=== PATIENT | female | born 1965 | race Caucasian/White ===

== ENCOUNTER 2017-07-01 19:06 | Emergency (ER) | payer OTHER, BC ==
[2017-07-01 19:10] VITALS: BP 129/84; PULSE 93; TEMP 97; BMI 34.9
--- NOTE | 2017-07-01 21:24 | PDOC ---
History of Present Illness - General Chief Complaint: Injury Stated Complaint: FALL/INJURY Time Seen by Provider: 07/01/17 20:04 History Source: Patient Exam Limitations: No Limitations - History of Present Illness Initial Comments: 07/01/17 21:19 CHIEF COMPLAINT: Mechanical fall on Saturday now complaining of neck pain back pain and disorientation HISTORY OF PRESENT ILLNESS: Patient is an otherwise healthy 51-year-old female reports while at work on 06/28/2017 patient was walking down an icy ramp at work slipped and fell twice falling hard on her back she started to bleed thought she had her. However she popped hemorrhoid from falling hard now with lower back pain, neck pain, headache 10 out of 10 and today her boss sent her home for being disoriented. Patient reports that she felt confused of her surroundings. She has been ambulatory to the emergency department today complaining of pain unrelieved with Motrin, Tylenol or Advil. Patient denies hitting her head, denies any LOC, no nausea or vomiting. PMH: [None] MEDS:[ None] ALLERGIES: [None] REVIEW OF SYSTEMS: GENERAL/CONSTITUTIONAL: Awake alert and oriented HEAD, EYES, EARS, NOSE AND THROAT: No change in vision. No facial edema, no bruising. NO active bleeding. Nares intact. RESPIRATORY: No cough, wheezing, or hemoptysis. CARDIAC: Denies chest pain, no shortness of breathe. MUSCULOSKELETAL: Generalized lower back pain with no direct spinal point tenderness, there is tenderness to lower cervical spine, Good ROM to all four extremeties. NO CVA tenderness. [No] lateral neck pain. GI/: Denies abdominal pain, no nausea or vomiting, no bloody stool, no Hematuria. SKIN : No erythema or bruising noted. No abrasion or lacerations. NEUROLOGIC: No loss of consciousness, no numbness or tingling. PHYSICAL EXAM: GENERAL: Awake and alert and oriented x3. EYES: The pupils are equal, round, and reactive to light, with clear, conjunctiva. Good extraocular movement. No nystagmus NOSE: No nasal trauma . Midface stable MOUTH: Teeth intact. EARS: The ear canals and tympanic membranes are normal without trauma. No drainage. NECK: Lower cervical C-spine tenderness, no pain with chin to chest. CHEST: The lungs are clear without crackles, or wheezes. No subcutaneous emphysema. No crepitus. HEART: Heart is regular rhythm, with normal S1 and S2, no murmurs. ABDOMEN: The abdomen is soft and nontender with normal bowel sounds. There is no guarding or rebound. MUSCULOSKELETAL: No spinal point tenderness. No bruising or erythema. Pelvis stable. RECTAL: Patient refused. EXTREMITIES: Extremities are normal. No visible traumatic injury. NEUROLOGICAL:Mental status: The patient is oriented x3. Generalized headache, Romberg [-] Cranial nerves: Cranial nerves II through XII are intact Motor: The upper extremities are 5 over 5 in all muscle groups. The lower extremities are 5 over 5 in all muscle groups. Sensation: Sensation is intact to light touch throughout. Cerebellar: Slutto-tpseqz-[id number] is normal in both upper extremities. Heel-knee- herndon is normal in both lower extremities. Reflexes: 2+ and symmetric in the upper and lower extremities. Gait: Normal. Heel and toe walking are normal. Tandem gait is normal. SKIN: Without edema, erythema or bruising. No abrasions or lacerations. Past History - Past Medical History Allergies/Adverse Reactions: Allergies Allergy/AdvReac Type Severity Reaction Status Date / Time No Known Allergies Allergy Verified 07/01/17 19:10 Home Medications: Ambulatory Orders NK [No Known Home Medication] 07/01/17 Asthma: Yes - Suicide/Smoking/Psychosocial Hx Smoking Status: No Smoking History: Never smoked Have you smoked in the past 12 months: No Number of Cigarettes Smoked Daily: 0 Hx Alcohol Use: No Drug/Substance Use Hx: No *Physical Exam - Vital Signs Last Vital Signs Temp Pulse Resp BP Pulse Ox 97 F L 93 H 18 129/84 99 07/01/17 19:08 07/01/17 19:08 07/01/17 19:08 07/01/17 19:08 07/01/17 19:08 Medical Decision Making - Medical Decision Making 07/01/17 21:22 A/P: Accidental fall on Saturday patient reports that she has been having neck pain generalized back pain and headache 10 out of 10 unrelieved with medication after incident. Today she reports that her boss sent her home because she was disoriented. As patient reports that she has been disoriented with headache unrelieved with medication patient sent to main emergency department for higher level of care. Report to Simona TRAMMELL and Dr. Rosa. *DC/Admit/Observation/Transfer Diagnosis at time of Disposition: Eloped - Discharge Dispostion Disposition: ELOPED
--- NOTE | 2017-07-01 22:53 | PDOC ---
*Physical Exam - Vital Signs Last Vital Signs Temp Pulse Resp BP Pulse Ox 97 F L 93 H 18 129/84 99 07/01/17 19:08 07/01/17 19:08 07/01/17 19:08 07/01/17 19:08 07/01/17 19:08 *DC/Admit/Observation/Transfer Diagnosis at time of Disposition: Eloped - Discharge Dispostion Disposition: ELOPED
== END 2017-07-01 22:52 | disposition left against medical advice (07) ==
LOC: JER 19:06
DX: R51 Headache (principal); R41.0 Disorientation, unspecified; W00.2XXA Other fall from one level to another due to ice and snow, initial encounter; Y93.89 Activity, other specified; Y92.512 Supermarket, store or market as the place of occurrence of the external cause; Y99.0 Civilian activity done for income or pay
CPT/HCPCS: 99282-25

== ENCOUNTER 2018-04-13 04:01 | Emergency (ER) | payer BC ==
[2018-04-13 04:32] VITALS: BP 118/77; PULSE 77; TEMP 99.1; BMI 35.7
--- NOTE | 2018-04-13 04:51 | PDOC ---
Attending Attestation - HPI HPI: 04/13/18 05:18 The patient is a 52 year old female, with no significant PMH, who presents to the emergency department with right sided posterior neck pain beginning at 3pm yesterday afternoon. The patient denies any injury or trauma. The patient states overnight she experienced progressively worsening posterior neck pain radiating to the right side of her head with associated vertigo which prompted the ED visit. The patient states she has never had these symptoms before. The patient states she takes cyclopenzaprine for intermittent neck pain with the last dose early Saturday morning. The patient denies numbness, tingling, loss of sensation, weakness, chest pain, palpitations, or shortness of breath. Denies fever, chills, nausea, vomit, diarrhea and constipation. Denies dysuria, frequency, urgency and hematuria. Allergies: NKA - Physicial Exam PE: 04/13/18 05:18 GENERAL: Awake, alert, and fully oriented, in no acute distress HEAD: No signs of trauma EYES: PERRLA, EOMI, sclera anicteric, conjunctiva clear ENT: Auricles normal inspection, hearing grossly normal, nares patent, oropharynx clear without exudates. Moist mucosa NECK: Normal ROM, supple, no lymphadenopathy, JVD, or masses LUNGS: Breath sounds equal, clear to auscultation bilaterally. No wheezes, and no crackles HEART: Regular rate and rhythm, normal S1 and S2, no murmurs, rubs or gallops ABDOMEN: Soft, nontender, normoactive bowel sounds. No guarding, no rebound. No masses EXTREMITIES: Normal range of motion, no edema. No clubbing or cyanosis. No cords, erythema, or tenderness NEUROLOGICAL: Cranial nerves II through XII grossly intact. Normal speech, normal gait SKIN: Warm, Dry, normal turgor, no rashes or lesions noted. <Jarrod Reynolds - Last Filed: 04/13/18 05:32> - Resident Resident Name: Abiola Steven - ED Attending Attestation I have performed the following: I have examined & evaluated the patient, The case was reviewed & discussed with the resident, I agree w/resident's findings & plan - Medical Decision Making 04/13/18 06:56 Pt will have labs done and CT head. <Sandra Morris - Last Filed: 04/13/18 06:57> Attestations - Attestations 04/13/18 05:19 Documentation prepared by Jarrod Reynolds, acting as medical billing coder for Sandra Morris MD. <Jarrod Reynolds - Last Filed: 04/13/18 05:32>
[2018-04-13] MEDS ORDERED: MECLIZINE HCL 25 MG TABLET (FP) PO ONE (04:55)
[2018-04-13] MEDS ORDERED: ACETAMINOPHEN 1000 MG/100 ML VIAL (NON FORMULARY) IVPB ONE (04:55)
[2018-04-13] MEDS ORDERED: SODIUM CHLORIDE 0.9% 500 ML INFUS.BAG IV ONE (05:02)
[2018-04-13] MEDS ORDERED: MECLIZINE HCL 25 MG TABLET (FP) ONE (05:08)
[2018-04-13] MEDS ORDERED: ACETAMINOPHEN INJECTION 100 ML IVPB ONE (05:08)
--- NOTE | 2018-04-13 05:09 | PDOC ---
History of Present Illness - General Chief Complaint: Head/Neck problem Stated Complaint: NECK PAIN Time Seen by Provider: 04/13/18 04:40 History Source: Patient Exam Limitations: No Limitations - History of Present Illness Initial Comments: 04/13/18 05:01 This is a 52 YOF with h/o prior injuries from multiple falls, who p/w abrupt onset of right posterior superior neck pain (patient points) yesterday at about 3 pm (approximately 13.5 hours prior to presentation in the ED this morning). She notes that the pain has since began radiating to the whole right side of her head, and she has associated vertigo (explains that objects in front of her appear to be rotating but that the room itself does not seem to be spinning or flipping). Her social services designee here in the ED states that her voice has been slower than normal since the onset of symptoms, and the right side of her face appears "softer than normal". She has never had symptoms like this before. She has not taken any new medications lately. She has been on cyclopenzaprine for intermittent neck pain and last took this medication early on Saturday morning ( more than 24 hours prior to presentation to the ED). She denies numbness, tingling, focal weakness, vision changes, difficulty balancing or walking, chest pain, palpitations, SOB, abdominal pain, new back pain, urinary incontinence/retention, or other symptoms. NIH Stroke Scale - Last Known Well Date/Time & Onset Date Last Known Well: 04/12/18 Time Last Known Well: 15:00 - Initial Evaluation Level of consciousness: Alert Ask patient the month and their age: Answers both correctly Ask patient to open & close eyes; make fist and let go: Obeys both correctly Best gaze (horizontal eye movement): Normal Visual field testing: No visual field loss Facial paresis (Show teeth/raise eyebrows/close eyes tight): Minor paralysis ( flattened nasolabial fold, asymmetry on smiling) Motor Function: Left Arm: Normal Motor Function: Right Arm: Normal (extends arm 90 (or 45) degrees for 10 seconds without drift Motor Function: Left Leg: Normal (extends leg 30 degrees for 5 seconds without drift) Motor Function: Right Leg: Normal (extends leg 30 degrees for 5 seconds without drift) Limb Ataxia: No ataxia Sensory(Use pinprick test arms,legs,trunk,face/side to side): Normal Best language (Describe picture, name items, read sentences): No Aphasia Dysarthria (read several words): Mild to moderate slurring of words Extinction and Inattention: No abnormality - Total Score NIH Stroke Scale Score: 2 Past History - Past Medical History Allergies/Adverse Reactions: Allergies Allergy/AdvReac Type Severity Reaction Status Date / Time No Known Allergies Allergy Verified 04/13/18 04:30 Home Medications: Ambulatory Orders NK [No Known Home Medication] 07/01/17 Asthma: Yes - Suicide/Smoking/Psychosocial Hx Smoking Status: No Smoking History: Never smoked Have you smoked in the past 12 months: No Number of Cigarettes Smoked Daily: 0 Information on smoking cessation initiated: No Hx Alcohol Use: No Drug/Substance Use Hx: No Review of Systems - Review of Systems Able to Perform ROS?: Yes Constitutional: No: Chills, Fever, Unexplained wgt Loss HEENTM: No: Nose Congestion, Throat Pain Respiratory: No: Cough, Shortness of Breath Cardiac (ROS): No: Chest Pain, Palpitations ABD/GI: No: Constipated, Diarrhea, Nausea, Vomiting : No: Burning, Dysuria Musculoskeletal: Yes: Neck Pain (right posterior). No: Back Pain Integumentary: No: Bruising, Rash Neurological: Yes: Headache (right), Dizziness (vertigo), Other (slowed speech) . No: Numbness, Tingling, Tremors, Weakness, Unsteady Gait, Ataxia Endocrine: No: Unexplained Weight Gain, Unexplained Weight Loss *Physical Exam - Vital Signs Last Vital Signs Temp Pulse Resp BP Pulse Ox 99.1 F 77 20 118/77 99 04/13/18 04:30 04/13/18 04:30 04/13/18 04:30 04/13/18 04:30 04/13/18 04:30 - Physical Exam General Appearance: Yes: Nourished, Appropriately Dressed, Other (pleasant but a bit bizarre-affect adult female, appears a bit older than stated age, accompanied by significant other at bedside). No: Apparent Distress HEENT: positive: EOMI, Normal Voice, Hearing Grossly Normal. negative: Scleral Icterus (R), Scleral Icterus (L), Nasal Congestion Neck: positive: Trachea midline, Supple. negative: Tender, Rigid Respiratory/Chest: positive: Lungs Clear, Normal Breath Sounds. negative: Respiratory Distress, Crackles, Rhonchi, Stridor, Wheezing Cardiovascular: positive: Regular Rhythm, Regular Rate, S1, S2. negative: Edema , JVD, Murmur Gastrointestinal/Abdominal: positive: Normal Bowel Sounds, Soft. negative: Tender, Organomegaly, Pulsatile Mass, Guarding Musculoskeletal: positive: Normal Inspection. negative: Decreased Range of Motion, Vertebral Tenderness Extremity: positive: Normal Capillary Refill, Normal Inspection, Normal Range of Motion. negative: Tender, Cyanosis Integumentary: positive: Normal Color, Dry, Warm. negative: Erythema, Rash, Bruising Neurologic: positive: health care technician II-XII NML intact, Fully Oriented, Alert, Normal Mood/ Affect, Normal Response, Motor Strength 5/5, Facial Droop (mild right sided droop), Finger to Nose (normal), Other (bilateral horizontal nystagmus greater with extreme rightward than extreme leftward gaze, extinguishes within 3 seconds on leftward gaze and within 10 seconds on rightward gaze). negative: Numbness, Sensory Deficit, Confused, Disoriented Heart Score/ECG Review #1 NSR, rate of 66, normal axis and intervals, TWI in III and aVF, otherwise no ischemic ST-T changes ED Treatment Course - RADIOLOGY Radiology Studies Ordered: Category Date Time Status HEAD CT WITH AND W/O CONTRAST [CT] Stat CT Scan 04/13/18 04:52 Ordered NECK CTA [CT] Stat CT Scan 04/13/18 04:52 Ordered CHEST X-RAY PORTABLE* [RAD] Stat Radiology 04/13/18 04:53 Ordered Medical Decision Making - Medical Decision Making Elderly Pt p/w right posterior neck pain, right headache, vertigo, and slowed speech. Laboratory Tests 04/13/18 04/13/18 04/13/18 04:55 04:55 04:55 WBC 6.8 RBC 4.52 Hgb 11.3 Hct 35.3 MCV 78.1 L MCH 24.9 L D MCHC 31.9 L RDW 16.0 H Plt Count 423 D MPV 7.0 L Absolute Neuts (auto) 3.6 Neutrophils % 52.0 Lymphocytes % 35.8 Monocytes % 9.7 Eosinophils % 1.6 Basophils % 0.9 Nucleated RBC % 0 PT with INR 12.80 INR 1.13 H Sodium 138 Potassium 4.3 Chloride 106 Carbon Dioxide 30 Anion Gap 2 L BUN 17 Creatinine 0.8 Creat Clearance w eGFR > 60 Random Glucose 100 Calcium 9.2 Total Bilirubin 0.2 AST 24 ALT 35 Alkaline Phosphatase 83 Creatine Kinase 232 H Troponin I < 0.02 Total Protein 7.3 Albumin 3.8 Exam: As noted in Physical Exam section. Patient's constellation of symptoms is concerning for vertebral dissection or other vertebrobasilar insufficiency. DDX for vertigo IBNLT: peripheral cause (BPPV, otitis media, vestibular neuritis , herpes zoster oticus AKA Aydlett Cooper syndrome, Meniere disease, labyrinthine concussion, perilymphatic fistula, semicircular canal dehiscence syndrome, Paulette syndrome, recurrent vestibulopathy, acoustic neuroma, aminoglycoside toxicity), central cause (brainstem ischemia or cerebellar infarction or hemorrhage e.g. thromboembolism/thrombosis/dissection, vestibular migraine, multiple sclerosis, Chiari malformation, episodic ataxia type 2), or non- vertiginous cause of dizziness (i.e. lightheadedness c/f pre-syncope). W/U ordered: CBCD CMP Mg Phos Cardiac panel Coags T&S EKG CXR Head CT WWO contrast Neck CTA TX ordered: IV, IVF, meclizine, ofirmev EKG: Reviewed; results as noted in ECG Review section. CXR: Pending Head CT WWO: Pending Neck CTA: Pending Laboratory Tests 04/13/18 04/13/18 04/13/18 04:55 04:55 04:55 WBC 6.8 RBC 4.52 Hgb 11.3 Hct 35.3 MCV 78.1 L MCH 24.9 L D MCHC 31.9 L RDW 16.0 H Plt Count 423 D MPV 7.0 L Absolute Neuts (auto) 3.6 Neutrophils % 52.0 Lymphocytes % 35.8 Monocytes % 9.7 Eosinophils % 1.6 Basophils % 0.9 Nucleated RBC % 0 PT with INR 12.80 INR 1.13 H Sodium 138 Potassium 4.3 Chloride 106 Carbon Dioxide 30 Anion Gap 2 L BUN 17 Creatinine 0.8 Creat Clearance w eGFR > 60 Random Glucose 100 Calcium 9.2 Total Bilirubin 0.2 AST 24 ALT 35 Alkaline Phosphatase 83 Creatine Kinase 232 H Creatine Kinase Index 1.5 CK-MB (CK-2) 3.54 Troponin I < 0.02 Total Protein 7.3 Albumin 3.8 Blood Type Antibody Screen 04/13/18 04:55 WBC RBC Hgb Hct MCV MCH MCHC RDW Plt Count MPV Absolute Neuts (auto) Neutrophils % Lymphocytes % Monocytes % Eosinophils % Basophils % Nucleated RBC % PT with INR INR Sodium Potassium Chloride Carbon Dioxide Anion Gap BUN Creatinine Creat Clearance w eGFR Random Glucose Calcium Total Bilirubin AST ALT Alkaline Phosphatase Creatine Kinase Creatine Kinase Index CK-MB (CK-2) Troponin I Total Protein Albumin Blood Type O POSITIVE Antibody Screen Negative Patient's care is endorsed to oncoming attending and resident physicians at the end of my shift. Pending CT studies. *DC/Admit/Observation/Transfer Diagnosis at time of Disposition: Neck pain, Vertigo Headache Qualifiers: Headache type: unspecified Headache chronicity pattern: unspecified pattern Intractability: not intractable Qualified Code(s): R51 - Headache - Referrals - Patient Instructions - Post Discharge Activity
[2018-04-13 05:10] LABS: BASO % 0.9 % (0-2.0); EOS % 1.6 % (0-4.5); HEMATOCRIT 35.3 % (32.4-45.2); HEMOGLOBIN 11.3 GM/dL (10.7-15.3); LYMPH % 35.8 % (8-40); MCH 24.9 pg (25.7-33.7); MCHC 31.9 g/dl (32.0-36.0); MEAN CELL VOLUME 78.1 fl (80-96); MONO % 9.7 % (3.8-10.2); PLATELET COUNT 423 K/MM3 (134-434); RBC 4.52 M/mm3 (3.60-5.2); WHITE BLOOD COUNT 6.8 K/mm3 (4.0-10.0)
[2018-04-13 05:27] LABS: INR 1.13 (0.83-1.09); PROTHROMBIN TIME (PATIENT) 12.8 SEC (9.7-13.0)
[2018-04-13 05:32] LABS: ALBUMIN 3.8 g/dl (3.4-5.0); ALK PHOS 83 U/L (45-117); ANION GAP 2 (8-16); BILIRUBIN,TOTAL 0.2 mg/dL (0.2-1.0); BLOOD UREA NITROGEN 17 mg/dL (7-18); CALCIUM 9.2 mg/dL (8.5-10.1); CHLORIDE 106 mmol/L (98-107); CO2 30 mmol/L (21-32); CREATININE 0.8 mg/dL (0.55-1.02); GLUCOSE,RANDOM 100 mg/dL (74-106); POTASSIUM 4.3 mmol/L (3.5-5.1); SGOT/AST 24 U/L (15-37); SGPT/ALT 35 U/L (12-78); SODIUM 138 mmol/L (136-145); TOT PROT 7.3 g/dl (6.4-8.2)
[2018-04-13 06:44] LABS: URINE APPEARANCE CLEAR; URINE BILIRUBIN NEGATIVE (<2.0 mg/dL); URINE COLOR YELLOW; URINE GLUCOSE (UA) NEGATIVE (NEGATIVE); URINE KETONE NEGATIVE (NEGATIVE); URINE LEUK ESTERASE TRACE (NEGATIVE); URINE NITRITE NEGATIVE (NEGATIVE); URINE PROTEIN NEGATIVE (NEGATIVE); URINE UROBILINOGEN NEGATIVE mg/dL (0.2-1.0)
[2018-04-13 06:49] LABS: EPI CELLS RARE /HPF (FEW); URINE BACTERIA RARE /hpf (NONE SEEN); URINE MUCUS RARE
[2018-04-13] MEDS ORDERED: METHOCARBAMOL 500 MG TABLET PO ONE (06:55)
[2018-04-13] MEDS ORDERED: METHOCARBAMOL 500 MG TABLET ONE (08:10)
--- NOTE | 2018-04-13 08:44 | PDOC ---
*Physical Exam - Vital Signs Last Vital Signs Temp Pulse Resp BP Pulse Ox 99.1 F 77 20 118/77 99 04/13/18 04:30 04/13/18 04:30 04/13/18 04:30 04/13/18 04:30 04/13/18 05:20 - Physical Exam Comments: 04/13/18 09:47 General Appearance: Nourished. No Apparent Distress HEENT: EOMI, MARGARITA. No Pharyngeal Erythema, Tonsillar Exudate, Tonsillar Erythema Neck: No Cervical Lymphadenopathy Respiratory/Chest: Lungs Clear, Normal Breath Sounds. No Crackles, Rales, Rhonchi, Wheezing Cardiovascular: Regular Rhythm, Regular Rate. No Murmur, Gallops, Rubs Gastrointestinal/Abdominal: Normal Bowel Sounds, Soft. No Guarding, Rebound, Tenderness Musculoskeletal: No CVA Tenderness Extremity: Normal Capillary Refill Integumentary: Normal Color, Dry, Warm Neurologic: active directory engineer II-XII NML intact, Fully Oriented, Alert, Normal Mood/Affect, Normal Response, Motor Strength 5/5. Normal Finger to Nose and Heel to Hodge ED Treatment Course - LABORATORY CBC & Chemistry Diagram: 04/13/18 04:55 04/13/18 04:55 - ADDITIONAL ORDERS Additional order review: Laboratory Results 04/13/18 04/13/18 04/13/18 06:30 04:55 04:55 PT with INR INR Sodium 138 Potassium 4.3 Chloride 106 Carbon Dioxide 30 Anion Gap 2 L BUN 17 Creatinine 0.8 Creat Clearance w eGFR > 60 Random Glucose 100 Calcium 9.2 Total Bilirubin 0.2 AST 24 ALT 35 Alkaline Phosphatase 83 Creatine Kinase 232 H Creatine Kinase Index 1.5 CK-MB (CK-2) 3.54 Troponin I < 0.02 Total Protein 7.3 Albumin 3.8 Urine Color Yellow Urine Appearance Clear Urine pH 5.0 Ur Specific [place] 1.020 Urine Protein Negative Urine Glucose (UA) Negative Urine Ketones Negative Urine Blood Negative Urine Nitrite Negative Urine Bilirubin Negative Urine Urobilinogen Negative Ur Leukocyte Esterase Trace Urine WBC (Auto) 5 Urine RBC (Auto) 2 Ur Epithelial Cells Rare Urine Bacteria Rare Urine Mucus Rare Blood Type O POSITIVE Antibody Screen Negative 04/13/18 04:55 PT with INR 12.80 INR 1.13 H Sodium Potassium Chloride Carbon Dioxide Anion Gap BUN Creatinine Creat Clearance w eGFR Random Glucose Calcium Total Bilirubin AST ALT Alkaline Phosphatase Creatine Kinase Creatine Kinase Index CK-MB (CK-2) Troponin I Total Protein Albumin Urine Color Urine Appearance Urine pH Ur Specific [place] Urine Protein Urine Glucose (UA) Urine Ketones Urine Blood Urine Nitrite Urine Bilirubin Urine Urobilinogen Ur Leukocyte Esterase Urine WBC (Auto) Urine RBC (Auto) Ur Epithelial Cells Urine Bacteria Urine Mucus Blood Type Antibody Screen 04/13/18 04:55 RBC 4.52 MCV 78.1 L MCHC 31.9 L RDW 16.0 H MPV 7.0 L Neutrophils % 52.0 Lymphocytes % 35.8 Monocytes % 9.7 Eosinophils % 1.6 Basophils % 0.9 - Medications Given in the ED: ED Medications Discontinued Medications Generic Name Dose Route Start Last Admin Trade Name Freq PRN Reason Stop Dose Admin Acetaminophen 1,000 mg 04/13/18 04:55 04/13/18 05:15 Ofirmev Injection - IVPB 04/13/18 04:56 1,000 mg ONCE ONE Administration Meclizine HCl 50 mg 04/13/18 04:55 04/13/18 05:15 Antivert - PO 04/13/18 04:56 50 mg ONCE ONE Administration Methocarbamol 1,000 mg 04/13/18 06:55 04/13/18 08:09 Robaxin - PO 04/13/18 06:56 1,000 mg ONCE ONE Administration Sodium Chloride 1,000 ml 04/13/18 05:02 04/13/18 05:16 Normal Saline - IV 04/13/18 05:03 1,000 ml ONCE ONE Administration Progress Note - Progress Note Progress Note: The patient is a 52 year old female with a history of prior injuries from multiple falls, who p/w abrupt onset of neck pain, vertigo yesterday at about 3 pm. Work up has been negative thus far and is pending a CTa of the neck and head CT. Medical Decision Making - Medical Decision Making 04/13/18 09:49 The patient appears normal on exam here with no focal neurological findings. CT of the head and neck were unremarkable as read by our radiologist. We discussed the case with Dr. Block who agrees that the patient does not require admission at this time and will follow up as an outpatient for outpatient MRI imaging. We discussed the results, plan, and return precautions with the patient who voiced understanding and is agreeable with the plan. *DC/Admit/Observation/Transfer Diagnosis at time of Disposition: Neck pain, Vertigo Headache Qualifiers: Headache type: unspecified Headache chronicity pattern: unspecified pattern Intractability: not intractable Qualified Code(s): R51 - Headache - Discharge Dispostion Disposition: HOME Condition at time of disposition: Stable Decision to Admit order: No - Referrals Referrals: Claudine Block MD [Staff Physician] - - Patient Instructions Printed Discharge Instructions: DI for Neck Pain Additional Instructions: Please return to the ER if you experience any concerning or worsening symptoms including worsening numbness, pain, or weakness. Your lab results and imaging studies were normal here in the ER. Please make sure you call to schedule a follow up appointment with our neurologist Dr. Block within 1-2 days to discuss your ER visit and further management of your symptoms. - Post Discharge Activity Forms/Work/School Notes: Back to Work
--- NOTE | 2018-04-13 19:59 | EKG ---
Test Reason : Blood Pressure : / mmHG Vent. Rate : 066 BPM Atrial Rate : 066 BPM P-R Int : 154 ms QRS Dur : 090 ms QT Int : 432 ms P-R-T Axes : 047 021 025 degrees QTc Int : 452 ms NORMAL SINUS RHYTHM NORMAL ECG WHEN COMPARED WITH ECG OF 14-OCT-2010 11:35, NO SIGNIFICANT CHANGE WAS FOUND Confirmed by DARRION BARTH MD ([id number]) on 04/13/2018 7:58:49 PM Referred By: Confirmed By:DARRION BARTH MD
== END 2018-04-13 10:15 | disposition home or self-care (01) ==
LOC: JER 04:01
PROC: 3E033NZ Introduction of Analgesics, Hypnotics, Sedatives into Peripheral Vein, Percutaneous Approach (ICD-10-PCS; principal; 2018-04-13)
PROC: 3E0337Z Introduction of Electrolytic and Water Balance Substance into Peripheral Vein, Percutaneous Approach (ICD-10-PCS; 2018-04-13)
DX: M54.2 Cervicalgia (principal); R42 Dizziness and giddiness; R51 Headache
CPT/HCPCS: 36415; 70470-TC; 70498-TC; 71045-TC-FY; 80053; 81003; 81015; 82550; 82553; 84484; 85025; 85610; 86850; 86900; 86901; 87086; 93005; 93010; 99285-25; J0131

== ENCOUNTER 2018-11-01 23:38 | Emergency (ER) | payer SELFPAY ==
[2018-11-01 23:54] VITALS: BP 127/80; PULSE 89; TEMP 98.9; BMI 35.7
[2018-11-02] MEDS ORDERED: DIPHTH,PERTUSS(ACELL),TET 0.5 ML DISP.SYRIN IM ONE ×2 (01:30→02:20)
--- NOTE | 2018-11-02 01:43 | PDOC ---
History of Present Illness - General Chief Complaint: Injury Stated Complaint: FINGER LACERATION Time Seen by Provider: 11/02/18 01:30 History Source: Patient Exam Limitations: No Limitations - History of Present Illness Initial Comments: 11/02/18 01:37 The patient is a 52F with no PMH who presents to the ER with complaints of a finger laceration which occurred yesterday at 2230. 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 She denies any numbness, tingling, or weakness in her finger. It is the R 4th finger. She is unsure of last tetanus. Past History - Past Medical History Allergies/Adverse Reactions: Allergies Allergy/AdvReac Type Severity Reaction Status Date / Time No Known Allergies Allergy Verified 04/13/18 04:30 Home Medications: Ambulatory Orders NK [No Known Home Medication] 07/01/17 Asthma: Yes COPD: No - Suicide/Smoking/Psychosocial Hx Smoking Status: No Smoking History: Never smoked Have you smoked in the past 12 months: No Number of Cigarettes Smoked Daily: 0 Hx Alcohol Use: No Drug/Substance Use Hx: No Substance Use Type: None Review of Systems - Review of Systems Able to Perform ROS?: Yes Is the patient limited Salvadorean proficient: No Integumentary: Yes: Other (Laceration) Neurological: No: Numbness, Tingling, Weakness *Physical Exam - Vital Signs Last Vital Signs Temp Pulse Resp BP Pulse Ox 98.9 F 89 19 127/80 100 11/01/18 23:51 11/01/18 23:51 11/01/18 23:51 11/01/18 23:51 11/01/18 23:51 - Physical Exam General Appearance: Yes: Nourished, Appropriately Dressed. No: Apparent Distress HEENT: positive: Normal Voice, Hearing Grossly Normal Extremity: positive: Other (1cm linear laceration on distal third of R 4th finger) Integumentary: positive: Dry, Warm Neurologic: positive: Respond to painful stimul. negative: Sensory Deficit Moderate Sedation - Procedure Monitoring Vital Signs: Procedure Monitoring Vital Signs Temperature 98.9 F 11/01/18 23:51 Pulse Rate 89 11/01/18 23:51 Respiratory Rate 19 11/01/18 23:51 Blood Pressure 127/80 11/01/18 23:51 O2 Sat by Pulse Oximetry (%) 100 02/23/19 23:51 Procedures - Laceration/Wound Repair Right Hand 4th digit Wound Length: to 2.5 cm Wound Explored: clean Wound's Depth, Shape: superficial Irrigated w/ Saline: Yes Betadine Prep: No Anesthesia: 1% Lidocaine Amount of Anesthetic (ccs): 2 Wound Debrided: minimal Wound Repaired With: Sutures Suture Size/Type: 4:0 Number of Sutures: 2 Layer Closure: No Sterile Dressing Applied: Yes Splint Applied: No Sling Applied: No Medical Decision Making - Medical Decision Making 11/02/18 01:46 The patient is a 52F with no PMH who presents to the ER with a finger laceration. Will give tetanus and clean finger and suture. 11/02/18 02:12 Sutures placed in sterile fashion and covered with gauze. Will give tetanus and d/c. *DC/Admit/Observation/Transfer Diagnosis at time of Disposition: Laceration - Discharge Dispostion Disposition: HOME Condition at time of disposition: Stable Decision to Admit order: No - Referrals - Patient Instructions Printed Discharge Instructions: DI for Laceration Repair -- Finger Additional Instructions: Please keep your finger warm and dry for 24 hours. After 24 hours, you can clean it gently with soap and water. Please return to the ER if you notice significant swelling, redness, or drainage from your finger. Please return to the ER if you develop fever, chills , nausea, or vomiting. Please return in 7 days for suture removal. - Post Discharge Activity
--- NOTE | 2018-11-02 01:48 | PDOC ---
Attending Attestation - HPI HPI: This patient is a 52 year old female, with no significant pmhx, who presents s/ p slicing left 4th finger at work. She states that she was holding the bottom of the slicer when she accidentally sustained a laceration. She believes it was the metal edge that caught her finger. She denies any numbness, tingling, or weakness in her finger. She is unsure of last tetanus. 11/02/18 01:49 <Anjelica Bae - Last Filed: 11/02/18 01:49> - Resident Resident Name: Mp Panda - ED Attending Attestation I have performed the following: I have examined & evaluated the patient, The case was reviewed & discussed with the resident, I agree w/resident's findings & plan, Exceptions are as noted - Physicial Exam PE: GENERAL: Awake, alert, and fully oriented, in no acute distress HEAD: No signs of trauma EXTREMITIES: L 4th finger with small linear lac, no gross contamination. No active bleeding. Remainder of extremities with normal range of motion, no edema. No clubbing or cyanosis. No cords, erythema, or tenderness NEUROLOGICAL: Cranial nerves II through XII grossly intact. Normal speech, normal gait. Motor and sensation intact SKIN: Warm, Dry, normal turgor, no rashes or lesions noted. - Medical Decision Making Small lac to finger, will irrigate and suture. Will not obtain imaging, as it was a large object that cut her, and it was not broken or fragmented. <Maria Ines Rutledge - Last Filed: 11/03/18 01:33> Attestations - Attestations 11/02/18 01:49 Documentation prepared by Anjelica Bae, acting as director global medical affairs for Maria Ines Rutledge MD. <Anjelica Bae - Last Filed: 11/02/18 01:49>
[2018-11-02] MEDS ORDERED: BACITRACIN 15 GM TUBE TOPICAL OINTMENT TP ONE (02:40)
[2018-11-02] MEDS ORDERED: BACITRACIN 0.9 GM PACKET ONE (02:40)
== END 2018-11-02 02:29 | disposition home or self-care (01) ==
LOC: JER 23:38
PROC: 3E0234Z Introduction of Serum, Toxoid and Vaccine into Muscle, Percutaneous Approach (ICD-10-PCS; principal; 2018-11-01)
PROC: 0HQFXZZ Repair Right Hand Skin, External Approach (ICD-10-PCS; 2018-11-01)
DX: S61.212A Laceration without foreign body of right middle finger without damage to nail, initial encounter (principal); W29.0XXA Contact with powered kitchen appliance, initial encounter; Y93.89 Activity, other specified; Y92.89 Other specified places as the place of occurrence of the external cause; Y99.8 Other external cause status
CPT/HCPCS: 90715; 99281-25

== ENCOUNTER 2018-11-12 17:12 | Emergency (ER) | payer OTHER ==
[2018-11-12 17:36] VITALS: BP 126/81; PULSE 83; TEMP 98.5; BMI 35.7
--- NOTE | 2018-11-12 17:36 | PDOC ---
Rapid Medical Evaluation Chief Complaint: Suture/Staple Removal(Here) Time Seen by Provider: 11/12/18 17:32 Medical Evaluation: Allergies Allergy/AdvReac Type Severity Reaction Status Date / Time No Known Allergies Allergy Verified 04/13/18 04:30 11/12/18 17:34 52 year old female s/p stitches to the distal aspect of the rigth fourth digit. wound well approximated. reports slight pain at the site. PE: wound well approximated. clean and dry. slight erythema and swelling to finger . no streaking A: suture removal P: suture removal 11/12/18 17:36 Discharge Disposition - Diagnosis Visit for suture removal - Referrals - Patient Instructions - Post Discharge Activity
--- NOTE | 2018-11-12 17:42 | PDOC ---
Suture Removal/Wound Check HPI - History of Present Illness Chief Complaint: Suture/Staple Removal(Here) Stated Complaint: STICHES REMOVAL Time Seen by Provider: 11/12/18 17:32 History Source: Yes: Patient Exam Limitations: Yes: No Limitations Treated at: [facility] Date of Last ED visit: 11/02/18 - Previous ED Treatment Type of procedure performed on last visit: Yes: Laceration Repair Tetanus Immunization: Yes: Up to Date (as per patient received tetanus on the day of visit) Past History - Past Medical History Allergies/Adverse Reactions: Allergies Allergy/AdvReac Type Severity Reaction Status Date / Time No Known Allergies Allergy Verified 11/12/18 17:40 Home Medications: Ambulatory Orders NK [No Known Home Medication] 07/01/17 Asthma: Yes COPD: No - Suicide/Smoking/Psychosocial Hx Smoking Status: No Smoking History: Never smoked Have you smoked in the past 12 months: No Number of Cigarettes Smoked Daily: 0 Hx Alcohol Use: No Drug/Substance Use Hx: No Substance Use Type: None Suture Removal/Wound Check PE - Physical Exam Laceration/Wound Check Symptoms: reports: None Current Severity Level: None Location of Laceration/Wound: right: Finger *Review of Systems - Review of Systems Able to Perform ROS?: Yes Constitutional: No: Symptoms Reported, See HPI, Chills, Diaphoresis, Fever, Loss of Appetite, Malaise, Night Sweats, Weakness, Weight Stable, Unintentional Wgt. Loss, Unexplained wgt Loss, Other Integumentary: Yes: Other (finger pain) *Physical Exam - Vital Signs Last Vital Signs Temp Pulse Resp BP Pulse Ox 98.5 F 83 18 126/81 99 11/12/18 17:34 11/12/18 17:34 11/12/18 17:34 11/12/18 17:34 11/12/18 17:34 - Physical Exam General Appearance: Yes: Appropriately Dressed Extremity: positive: Normal Capillary Refill, Normal Inspection Integumentary: positive: Normal Color, Dry, Warm, Erythema ( and slight edema at the laceration site) Neurologic: positive: Fully Oriented, Normal Mood/Affect Moderate Sedation - Procedure Monitoring Vital Signs: Procedure Monitoring Vital Signs Temperature 98.5 F 11/12/18 17:34 Pulse Rate 83 11/12/18 17:34 Respiratory Rate 18 11/12/18 17:34 Blood Pressure 126/81 11/12/18 17:34 O2 Sat by Pulse Oximetry (%) 99 11/12/18 17:34 *DC/Admit/Observation/Transfer Diagnosis at time of Disposition: Visit for suture removal - Discharge Dispostion Disposition: HOME Condition at time of disposition: Stable - Referrals - Patient Instructions Printed Discharge Instructions: DI for Suture Removal Additional Instructions: Rest, avoid strenuous activity or exercise until scabbing is completely resolved May use bacitracin ointment until scabbing is gone After may use vitamin E oil, poke hole in vitamin E capsule and use oil from the capsule on wound- may help resolve some of the discoloration of the scar Keep wound out of the sun for at least one year to avoid darkening of scar tissue - Post Discharge Activity Forms/Work/School Notes: Back to Work
--- NOTE | 2018-11-12 17:45 | PDOC ---
Suture Removal/Wound Check HPI - History of Present Illness Chief Complaint: Suture/Staple Removal(Here) Stated Complaint: STICHES REMOVAL Time Seen by Provider: 11/12/18 17:32 History Source: Yes: Patient Exam Limitations: Yes: No Limitations Treated at: [facility] ED - Previous ED Treatment Type of procedure performed on last visit: Yes: Laceration Repair Tetanus Immunization: Yes: Up to Date Antibiotics Prescribed: No Past History - Travel Traveled outside of the country in the last 30 days: No Close contact w/someone who was outside of country & ill: No - Past Medical History Allergies/Adverse Reactions: Allergies Allergy/AdvReac Type Severity Reaction Status Date / Time No Known Allergies Allergy Verified 11/12/18 17:40 Home Medications: Ambulatory Orders NK [No Known Home Medication] 07/01/17 Asthma: Yes COPD: No - Suicide/Smoking/Psychosocial Hx Smoking Status: No Smoking History: Never smoked Have you smoked in the past 12 months: No Number of Cigarettes Smoked Daily: 0 Hx Alcohol Use: No Drug/Substance Use Hx: No Substance Use Type: None Suture Removal/Wound Check PE - Physical Exam Laceration/Wound Check Symptoms: reports: None Current Severity Level: None Maximum Severity Level: None Pain Localization: None *Review of Systems - Review of Systems Able to Perform ROS?: Yes Constitutional: Yes: See HPI. No: Symptoms Reported, Fever, Malaise HEENTM: No: Symptoms Reported Respiratory: No: Symptoms reported Integumentary: Yes: Symptoms Reported, See HPI All Other Systems: Reviewed and Negative *Physical Exam - Vital Signs Last Vital Signs Temp Pulse Resp BP Pulse Ox 98.5 F 83 18 126/81 99 11/12/18 17:34 11/12/18 17:34 11/12/18 17:34 11/12/18 17:34 11/12/18 17:34 - Physical Exam General Appearance: Yes: Nourished, Appropriately Dressed. No: Apparent Distress HEENT: positive: MARGARITA, Normal ENT Inspection, TMs Normal Neck: positive: Supple. negative: Tender Respiratory/Chest: positive: Lungs Clear Musculoskeletal: positive: Normal Inspection Extremity: positive: Normal Capillary Refill, Other (2 sutures removed from right 3rd digit). 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 NML intact, Fully Oriented, Alert, Normal Mood/ Affect, Normal Response, Motor Strength 5/5 Moderate Sedation - Procedure Monitoring Vital Signs: Procedure Monitoring Vital Signs Temperature 98.5 F 11/12/18 17:34 Pulse Rate 83 11/12/18 17:34 Respiratory Rate 18 11/12/18 17:34 Blood Pressure 126/81 11/12/18 17:34 O2 Sat by Pulse Oximetry (%) 99 11/12/18 17:34 *DC/Admit/Observation/Transfer Diagnosis at time of Disposition: Visit for suture removal - Discharge Dispostion Disposition: HOME Condition at time of disposition: Stable Decision to Admit order: No - Referrals - Patient Instructions Printed Discharge Instructions: DI for Suture Removal Additional Instructions: Rest, avoid strenuous activity or exercise until scabbing is completely resolved May use bacitracin ointment until scabbing is gone After may use vitamin E oil, poke hole in vitamin E capsule and use oil from the capsule on wound- may help resolve some of the discoloration of the scar Keep wound out of the sun for at least one year to avoid darkening of scar tissue - Post Discharge Activity Forms/Work/School Notes: Back to Work
== END 2018-11-12 18:12 | disposition home or self-care (01) ==
LOC: JERFT 17:12
DX: Z48.02 Encounter for removal of sutures (principal); J45.909 Unspecified asthma, uncomplicated
CPT/HCPCS: 99281-25

== ENCOUNTER 2018-12-07 10:48 | Emergency (ER) | payer BC, OTHER ==
[2018-12-07 10:53] VITALS: BMI 35.7
--- NOTE | 2018-12-07 11:34 | PDOC ---
Attending Attestation - HPI HPI: This patient is a 53 year old female with no significant PMHx, who presents with a severe posterior headache that began 2 days ago. Patient states that on Saturday night she began experiencing a right sided posterior throbbing headache with associated nausea, vomiting, photophobia. She states that she has had headache in the past but not like this. She denies h/o migraines. Denies any trauma or neck pain. She also notes that since yesterday she describes a spasmic feeling in her lower abdomen but denies any dysuria or hematuria. - Physicial Exam PE: GENERAL: Awake, alert, and fully oriented, in no acute distress HEAD: No signs of trauma EYES: PERRLA, EOMI, sclera anicteric, conjunctiva clear NECK: No meningeal signs. Normal ROM, supple, no lymphadenopathy, JVD, or masses LUNGS: Breath sounds equal, clear to auscultation bilaterally. No wheezes, and no crackles HEART: Regular rate and rhythm, normal S1 and S2, no murmurs, rubs or gallops ABDOMEN: Soft, suprapubic tenderness, normoactive bowel sounds. No guarding, no rebound. No masses EXTREMITIES: Normal range of motion, no edema. No clubbing or cyanosis. No cords, erythema, or tenderness NEUROLOGICAL: No CVA tenderness. Cranial nerves II through XII grossly intact. Finger to nose intact. Normal speech, normal gait SKIN: Warm, Dry, normal turgor, no rashes or lesions noted. <Anjelica Bae - Last Filed: 12/07/18 12:00> - Resident Resident Name: Estefania Goldman - ED Attending Attestation I have performed the following: I have examined & evaluated the patient, The case was reviewed & discussed with the resident, I agree w/resident's findings & plan, Exceptions are as noted - Medical Decision Making 12/07/18 11:34 I, Dr. Nenita Brock, DO, attest that this document has been prepared under my direction and personally reviewed by me in its entirety. I further attest, that it accurately reflects all work, treatment, procedures and medical decision -making performed by me. 12/07/18 12:25 a/p: 53yo female with shipman since saturday and urinary freq since yesterday -no meningeal signs -no fevers -no sinus ttp, no rhinorrhea, no sore throat, no rash -no cough/congestion -pt denies cp/sob, no flank pain -feels a spasm when she urinates -pt is nontoxic in appearance -neuro intact -will send labs, ua -will monitor and reassess, will medicate 12/07/18 14:47 labs reviewed ua negative intermediate preg, tvus performed, no iup pt has been post menopausal x 8 years 12/07/18 14:48 re-eval: pt states shipman improved, still with LUQ and LLQ abd pain now -ttp LLQ on re-eval will obtain ct abd/pelvis for further eval 12/07/18 16:19 pt has acute diverticulitis on ct pt wants to try oral abx and go home pt feeling better will po challenge and give first dose of abx in the ED 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 <Anjelica Bae - Last Filed: 12/07/18 12:00>
[2018-12-07] MEDS ORDERED: SODIUM CHLORIDE 0.9% 1000 ML INFUS.BAG IV ONE (11:39)
[2018-12-07] MEDS ORDERED: KETOROLAC TROMETHAMINE 15 MG/ML VIAL IVPUSH ONE (11:39)
[2018-12-07] MEDS ORDERED: METOCLOPRAMIDE HCL INJECTION 10 MG/2 ML VIAL IVPUSH ONE (11:39)
[2018-12-07] MEDS ORDERED: KETOROLAC TROMETHAMINE 15 MG/ML VIAL ONE (11:56)
[2018-12-07] MEDS ORDERED: METOCLOPRAMIDE HCL INJECTION 10 MG/2 ML VIAL ONE (11:56)
--- NOTE | 2018-12-07 11:56 | PDOC ---
History of Present Illness - General Chief Complaint: Headache Stated Complaint: SEVERE HEADACHE Time Seen by Provider: 12/07/18 11:24 - History of Present Illness Initial Comments: Zarina Brush is a 53yo otherwise healthy woman who presents with right-sided throbbing headache, nausea/vomiting and suprapubic pain since Saturday. She states that the headache started gradually on Saturday while at work. Since then, she has noticed that light and sound bother her. She has also had continuous nausea with retching. She also has had small episodes of NBNB vomiting that contain "mucous" only. Ms Brush additionally reports pain that radiates from the epigastrium to suprapubic/left groin area in cramping waves. She has taken acetaminophen every 4-6 hours for the past 2 days without any significant relief. She denies any fevers/chills, change in bowel habits, chest pain, SOB, vaginal discharge, dysuria or urinary frequency. Past History - Past Medical History Allergies/Adverse Reactions: Allergies Allergy/AdvReac Type Severity Reaction Status Date / Time No Known Allergies Allergy Verified 12/07/18 10:53 Home Medications: Ambulatory Orders Ciprofloxacin [Cipro -] 500 mg PO Q12H #20 tablet 12/07/18 Metronidazole 500 mg PO Q8H #30 tablet 12/07/18 Asthma: Yes COPD: No - Suicide/Smoking/Psychosocial Hx Smoking Status: No Smoking History: Never smoked Have you smoked in the past 12 months: No Number of Cigarettes Smoked Daily: 0 Hx Alcohol Use: No Drug/Substance Use Hx: No Substance Use Type: None Review of Systems - Review of Systems Comments:: General: No fevers, no chills, no weight or appetite change, no malaise HEENT: No changes in vision, no changes in hearing, no congestion, no sore throat. +GORDILLO CV: No chest pain, no palpitations, no LE edema Pulm: No SOB, no cough, no wheezing GI: +nausea, +vomiting, +cramping abd pain, no change in bowel habits, no melena : No frequency, no urgency, no dysuria Musc: No back pain, no joint swelling, no recent injury Skin: No rash, no lesions, no erythema Endo: No excessive thirst, no heat/cold intolerance Heme: No unusual bruising or bleeding, no swollen glands Neuro: No syncope, no numbness/tingling, no focal weakness Vasc: No claudication Psych: No recent change in mood, no SI or HI *Physical Exam - Vital Signs Last Vital Signs Temp Pulse Resp BP Pulse Ox 99.0 F 79 18 132/79 99 12/07/18 10:50 12/07/18 10:50 12/07/18 10:50 12/07/18 10:50 12/07/18 10:50 - Physical Exam Comments: General: Comfortable, no acute distress HEENT: PERRL, EOMI, MMM, voice normal, normal neck ROM, no sinus tenderness Cards: RRR, no murmur appreciated Pulm: Comfortable on room air, clear to auscultation bilaterally Abd: Soft, non-distended. Mild suprapubic TTP : No CVA tenderness Ext: Atraumatic. No LE edema. ROM intact. Strength 5/5 and equal bilaterally Vasc: Extremities WWP. Skin: Normal color, no rashes or lesions Neuro: A&Ox3, CN grossly intact, normal speech, motor/sensory grossly intact and symmetric Psych: Mood appropriate to situation ED Treatment Course - LABORATORY CBC & Chemistry Diagram: 12/07/18 11:53 12/07/18 11:53 Medical Decision Making - Medical Decision Making 12/07/18 11:57 Zarina Brush is a 53yo otherwise healthy woman who presents with right-sided throbbing headache, photophobia, phonophobia, nausea/vomiting and suprapubic pain since Saturday. She has tried acetaminophen without significant relief. - Per history, most likely a migraine GORDILLO. However, has no h/o migraine. - Epigastic pain most likely due to vomiting, possibly 2/2 GORDILLO. Suprapubic pain suggests UTI. Could also have atypical presentation of kidney stone as she reports cramping abdominal pain radiating to the L groin. - CBC, CMP, UA, UCx, preg, coags - Reglan, benadryl, toradol, IVF for symptoms 12/07/18 12:48 - Labs reviewed. No concerning abnormalities - UA pending 12/07/18 13:15 - UA negative - bHCG low positive. Discussed with pt; has been menopausal for 8yrs - Transvaginal US ordered for evaluation of low abd pain, elevated bHCG - Decadron, IV mag for continued GORDILLO 12/07/18 14:48 - GORDILLO now resolved, but still having abdominal pain. Suprapubic pain resolved. Now w/ LLQ and LUQ pain. With frequent vomiting/retching, most likely abdominal muscle strain. However cannot definitively rule out more severe intraabdominal pathology, delmis as US did not visualize the left ovary. - CT abd/pelvis with contrast ordered for evaluation - Additional 1L IVF ordered 12/07/18 16:14 - CT indicates acute sigmoid diverticulitis - Discussed with pt; she would prefer to go home - PO challenge to determine if Ms Brush is safe to d/c home with close follow up - Will give cipro/flagyl 12/07/18 16:32 - Tolerated PO w/o difficulty - Discussed home care, follow up, return precautions at length. Ms Brush understands and agrees with the plan. Discussed with Dr Brock. Estefania Goldman PGY1 *DC/Admit/Observation/Transfer Diagnosis at time of Disposition: Headache, Sigmoid diverticulitis - Discharge Dispostion Disposition: HOME Condition at time of disposition: Stable Decision to Admit order: No - Prescriptions Prescriptions: Ciprofloxacin [Cipro -] 500 mg PO Q12H #20 tablet Metronidazole 500 mg PO Q8H #30 tablet - Referrals Referrals: [facility] [Provider Group] Elia Kaplan MD [Staff Physician] - Christian Buckley MD [Staff Physician] - - Patient Instructions Printed Discharge Instructions: DI for Diverticulitis Additional Instructions: Discharge Instructions: You were seen in the emergency department for headache and abdominal pain. You were found to have diverticulitis, which is an infection of the colon. Diverticulosis: pouches off the colon, usually asymptomatic Diverticulitis: Infection and inflammation of the diverticuli You were also found to have a slightly elevated bHCG ( hormone). 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 Home Care: - You have been prescribed two antibiotics that should be taken until the prescriptions are completed (total of 10 days). You received the first dose in the ED. 1. Metronidazole (Flagyl) - 500mg every 8hrs 2. Ciprofloxacin - 500mg every 12 hours - Do your best to take the antibiotics on schedule. You may take the second dose of each medication this evening, and then start with the every 8 or every 12 hours in the morning. - You may use 650-1000mg acetaminophen (Tylenol) or 600mg ibuprofen (Motrin, Advil) every 6-8 hours as needed for pain. If you have continued pain, you may alternate these medications every 3-4 hours for additional pain control. It is recommended that you take ibuprofen with food to prevent upset stomach. - For the next 2-3 days, it is recommended that you follow a liquid and soft food diet. Make sure you are staying well hydrated. Water, juices, yogurt, oatmeal, soup and similar items are all good options. - You have been referred to a GI doctor, Dr Kaplan, for follow up. You should see him within the next week for follow up of your diverticulitis. You should also schedule a colonoscopy. - You have been referred to Dr Buckley for gynecology follow up. You should make an appointment to have a repeat bHCG in one week (12/15/18) - Seek immediate medical care if your symptoms worsen, you develop fever over 101F despite taking your antibiotics, you are unable to tolerate liquids by mouth, or you begin to feel dehydrated (dry mouth, low urination, lightheaded) or you have any other medical emergency. - Post Discharge Activity Forms/Work/School Notes: Back to Work
[2018-12-07 12:12] LABS: BASO % 1.1 % (0-2.0); EOS % 1.8 % (0-4.5); HEMATOCRIT 32.8 % (32.4-45.2); HEMOGLOBIN 10.1 GM/dL (10.7-15.3); LYMPH % 28.6 % (8-40); MCH 23.5 pg (25.7-33.7); MCHC 30.9 g/dl (32.0-36.0); MEAN CELL VOLUME 75.9 fl (80-96); MEAN PLT VOLUME 7.1 fl (7.5-11.1); MONO % 9.2 % (3.8-10.2); NEUT % 59.3 % (42.8-82.8); PLATELET COUNT 387 K/MM3 (134-434); RBC 4.32 M/mm3 (3.60-5.2); RDW 16.4 % (11.6-15.6); WHITE BLOOD COUNT 5.9 K/mm3 (4.0-10.0)
[2018-12-07 12:34] LABS: INR 1.18 (0.83-1.09); PROTHROMBIN TIME (PATIENT) 13.9 SEC (9.7-13.0)
[2018-12-07 12:40] LABS: ALBUMIN 3.4 g/dl (3.4-5.0); ALK PHOS 77 U/L (45-117); ANION GAP 3 MMOL/L (8-16); BILIRUBIN,TOTAL 0.2 mg/dL (0.2-1); BLOOD UREA NITROGEN 14 mg/dL (7-18); CALCIUM 8.7 mg/dL (8.5-10.1); CHLORIDE 108 mmol/L (98-107); CO2 27 mmol/L (21-32); CREATININE 0.5 mg/dL (0.55-1.3); GLUCOSE,RANDOM 96 mg/dL (74-106); POTASSIUM 4.6 mmol/L (3.5-5.1); SGOT/AST 19 U/L (15-37); SGPT/ALT 31 U/L (13-61); SODIUM 137 mmol/L (136-145); TOT PROT 6.8 g/dl (6.4-8.2)
[2018-12-07 12:42] LABS: PH,URINE 5.5 (5.0-8.0); URINE APPEARANCE CLEAR; URINE BILIRUBIN NEGATIVE (NEGATIVE); URINE COLOR YELLOW; URINE GLUCOSE (UA) NEGATIVE (NEGATIVE); URINE KETONE NEGATIVE (NEGATIVE); URINE LEUK ESTERASE NEGATIVE (NEGATIVE); URINE NITRITE NEGATIVE (NEGATIVE); URINE PROTEIN NEGATIVE (NEGATIVE); URINE UROBILINOGEN 0.2 mg/dL (0.2-1.0)
[2018-12-07] MEDS ORDERED: MAGNESIUM SULF 50% (8.12 MEQ/2 ML-1 GM VIAL) IVPB ONE (13:15)
[2018-12-07] MEDS ORDERED: ACETAMINOPHEN 1000 MG/100 ML VIAL (NON FORMULARY) IVPB ONE (13:15)
[2018-12-07] MEDS ORDERED: DEXAMETHASONE SOD PHOSPHATE 10 MG/1 ML VIAL IVPUSH ONE (13:15)
[2018-12-07] MEDS ORDERED: DEXAMETHASONE SOD PHOSPHATE 10 MG/1 ML VIAL ONE (13:29)
[2018-12-07] MEDS ORDERED: ACETAMINOPHEN INJECTION 100 ML IVPB ONE (13:29)
[2018-12-07] MEDS ORDERED: MAGNESIUM 1GM/D5W - 1 GM/100 ML IVPB IVPB ONE (13:31)
[2018-12-07] MEDS ORDERED: SODIUM CHLORIDE 0.9% 500 ML INFUS.BAG IV ONE (14:47)
[2018-12-07] MEDS ORDERED: metroNIDAZOLE 250 MG TABLET PO ONE (16:20)
[2018-12-07] MEDS ORDERED: CIPROFLOXACIN 500 MG TABLET (RESTRICTED TO ID) PO ONE (16:20)
[2018-12-07] MEDS ORDERED: metroNIDAZOLE 250 MG TABLET ONE (16:41)
[2018-12-07 16:47] VITALS: BP 128/78; PULSE 73; TEMP 98.2
== END 2018-12-07 16:47 | disposition home or self-care (01) ==
LOC: JER 10:48
PROC: 3E033GC Introduction of Other Therapeutic Substance into Peripheral Vein, Percutaneous Approach (ICD-10-PCS; principal; 2018-12-07)
PROC: 3E033GC Introduction of Other Therapeutic Substance into Peripheral Vein, Percutaneous Approach (ICD-10-PCS; 2018-12-07)
PROC: 3E033NZ Introduction of Analgesics, Hypnotics, Sedatives into Peripheral Vein, Percutaneous Approach (ICD-10-PCS; 2018-12-07)
PROC: 3E0333Z Introduction of Anti-inflammatory into Peripheral Vein, Percutaneous Approach (ICD-10-PCS; 2018-12-07)
PROC: 3E0333Z Introduction of Anti-inflammatory into Peripheral Vein, Percutaneous Approach (ICD-10-PCS; 2018-12-07)
DX: K57.92 Diverticulitis of intestine, part unspecified, without perforation or abscess without bleeding (principal); R51 Headache
CPT/HCPCS: 36415; 74177-TC; 76830-TC; 80053; 81003; 84702; 84703; 85025; 85610; 85730; 99281-25; J0131; J1100; J7030

== ENCOUNTER 2019-01-24 19:14 | Emergency (ER) | payer BC ==
[2019-01-24 19:52] VITALS: BP 121/83; PULSE 98; TEMP 98.5; BMI 34.1
--- NOTE | 2019-01-24 20:03 | PDOC ---
History of Present Illness - General Chief Complaint: Pain, Acute Stated Complaint: KNEE PAIN Time Seen by Provider: 01/24/19 19:56 History Source: Patient Exam Limitations: No Limitations - History of Present Illness Initial Comments: 01/24/19 20:03 States slipped and fell last night in front of the house, after missing a step. Fell to her right knee. Has complaints of pain and swelling. States used ice and ibuprofen with minimal resolved. Occurred: reports: yesterday Severity: reports: moderate Pain Location: reports: lower extremity (roght leg/ knee ) Past History - Travel Traveled outside of the country in the last 30 days: No Close contact w/someone who was outside of country & ill: No - Past Medical History Allergies/Adverse Reactions: Allergies Allergy/AdvReac Type Severity Reaction Status Date / Time No Known Allergies Allergy Verified 12/07/18 10:53 Home Medications: Ambulatory Orders Ciprofloxacin [Cipro -] 500 mg PO Q12H #20 tablet 12/07/18 Metronidazole 500 mg PO Q8H #30 tablet 12/07/18 Asthma: Yes COPD: No - Suicide/Smoking/Psychosocial Hx Smoking Status: No Smoking History: Never smoked Have you smoked in the past 12 months: No Number of Cigarettes Smoked Daily: 0 Hx Alcohol Use: No Drug/Substance Use Hx: No Substance Use Type: None Review of Systems - Review of Systems Able to Perform ROS?: Yes Is the patient limited Pashto proficient: Yes Constitutional: Yes: Symptoms Reported, See HPI, Loss of Appetite. No: Fever, Malaise Musculoskeletal: Yes: Symptoms Reported, See HPI, Joint Pain, Joint Swelling All Other Systems: Reviewed and Negative *Physical Exam - Vital Signs Last Vital Signs Temp Pulse Resp BP Pulse Ox 98.5 F 98 H 19 121/83 100 01/24/19 19:43 01/24/19 19:43 01/24/19 19:43 01/24/19 19:43 01/24/19 19:43 - Physical Exam General Appearance: Yes: Nourished, Appropriately Dressed, Mild Distress HEENT: positive: MARGARITA, Normal ENT Inspection, TMs Normal, Pharynx Normal Musculoskeletal: positive: Decreased Range of Motion. negative: Normal Inspection, CVA Tenderness Extremity: positive: Normal Capillary Refill, Swelling. 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, Fully Oriented, Alert, Normal Mood/ Affect, Normal Response, Motor Strength /5 Progress Note - Progress Note Progress Note: knee sprain *DC/Admit/Observation/Transfer Diagnosis at time of Disposition: Right knee sprain Qualifiers: Encounter type: initial encounter Involved ligament of knee: unspecified ligament Qualified Code(s): S83.91XA - Sprain of unspecified site of right knee , initial encounter - Discharge Dispostion Disposition: HOME Condition at time of disposition: Stable Decision to Admit order: No - Referrals Referrals: Fahad Oconnor MD [Staff Physician] - - Patient Instructions Printed Discharge Instructions: DI for Knee Sprain Additional Instructions: Rest, ice to area on and off for 15 minutes 4-6 times a day Avoid heavy lifting or exercise until pain and swelling is resolved or until further directed Keep area highly elevated to reduce swelling Use splints/Renato wrap as directed Followup with orthopedist in one to 2 days if not improving, if significantly improved may wait one week for followup with orthopedist May use ibuprofen every 6 hours as needed for pain - Post Discharge Activity Forms/Work/School Notes: Back to Work
== END 2019-01-24 20:00 | disposition home or self-care (01) ==
LOC: JERFT 19:14 → JER 19:14 → JERFT 20:00
DX: S83.8X1A Sprain of other specified parts of right knee, initial encounter (principal); W10.8XXA Fall (on) (from) other stairs and steps, initial encounter; Y92.018 Other place in single-family (private) house as the place of occurrence of the external cause; Y99.8 Other external cause status
CPT/HCPCS: 73562-TC-RT-FY; 99281-25

== ENCOUNTER 2019-06-07 00:03 | Emergency (ER) | payer BC ==
[2019-06-07 00:48] VITALS: BP 127/78; PULSE 72; TEMP 97.9; BMI 33.0
== END 2019-06-07 03:01 | disposition left against medical advice (07) ==
LOC: JER 00:03
DX: Z53.21 Procedure and treatment not carried out due to patient leaving prior to being seen by health care provider (principal)
CPT/HCPCS: 99281-25

== ENCOUNTER 2020-06-15 09:26 | Inpatient (IN) | payer BC ==
[2020-06-15] MEDS ORDERED: ACETAMINOPHEN 1000 MG/100 ML VIAL (NON FORMULARY) IVPB ONE ×2 (10:22→17:27)
[2020-06-15] MEDS ORDERED: SODIUM CHLORIDE 1,000 ML IV STA (10:22)
[2020-06-15] MEDS ORDERED: ONDANSETRON 4 MG/2 ML VIAL IVPB ONE (10:22)
[2020-06-15] MEDS ORDERED: ACETAMINOPHEN INJECTION 100 ML IVPB ONE ×2 (10:33→17:48)
[2020-06-15 10:58] LABS: BASO % 0.9 % (0-2.0); EOS % 0.1 % (0-4.5); HEMATOCRIT 34.7 % (32.4-45.2); HEMOGLOBIN 10.8 GM/dL (10.7-15.3); LYMPH % 8.6 % (8-40); MCH 24.3 pg (25.7-33.7); MEAN CELL VOLUME 78.2 fl (80-96); MONO % 8.7 % (3.8-10.2); NEUT % 81.7 % (42.8-82.8); PLATELET COUNT 414 K/MM3 (134-434); RBC 4.43 M/mm3 (3.60-5.2); RDW 16.7 % (11.6-15.6); WHITE BLOOD COUNT 14.9 K/mm3 (4.0-10.0)
[2020-06-15 11:05] LABS: INR 1.39 (0.83-1.09); PROTHROMBIN TIME (PATIENT) 16.5 SEC (9.7-13.0)
[2020-06-15 11:08] LABS: ACTIVATED PTT 34.4 SECONDS (25.2-36.5)
[2020-06-15 11:26] LABS: ALBUMIN 3.4 g/dl (3.4-5.0); ALK PHOS 64 U/L (45-117); ANION GAP 7 MMOL/L (8-16); BILIRUBIN,TOTAL 0.5 mg/dL (0.2-1); BLOOD UREA NITROGEN 11.1 mg/dL (7-18); CHLORIDE 101 mmol/L (98-107); CO2 28 mmol/L (21-32); CREATININE 0.5 mg/dL (0.55-1.3); GLUCOSE,RANDOM 86 mg/dL (74-106); LIPASE 105 U/L (73-393); POTASSIUM 4.3 mmol/L (3.5-5.1); SGOT/AST 15 U/L (15-37); SGPT/ALT 21 U/L (13-61); SODIUM 136 mmol/L (136-145); TOT PROT 7.1 g/dl (6.4-8.2)
--- NOTE | 2020-06-15 11:31 | PDOC ---
Documentation entered by Eliseo Low SCRIBE, acting as scribe for Vasu Bear MD. Vasu Bear MD: This documentation has been prepared by the robeibe, Eliseo Low SCRIBE, under my direction and personally reviewed by me in its entirety. I confirm that the documentation accurately reflects all work, treatment, procedures, and medical decision making performed by me. History of Present Illness - General Chief Complaint: Pain Stated Complaint: LWR ABD PAIN (EXTREME), CHILLS Time Seen by Provider: 06/15/20 09:44 History Source: Patient Exam Limitations: No Limitations - History of Present Illness Initial Comments: 06/15/20 10:32 The patient is a 54 year old female with a significant past medical history of asthma who presents to the emergency department for evaluation of lower abdominal pain that began two days ago. The patient reports pain in the left upper quadrant which radiates and is worse in the left lower quadrant. She endorses fever (Tmax: 101 last night) which improved to 99.8 after taking Tylenol last night. The patient also notes being unable to eat secondary to nausea, and four episodes of NBNB vomiting. The patient presented to Urgent Care yesterday (had bloodwork and pelvic US that were reportedly unremarkable) and w as prescribed antibiotics but has not started taking them. The patient denies chest/back pain, cough, and shortness of breath. Denies diarrhea or any symptoms. Denies any other symptoms. Allergies: NKA Social Hx: None reported Surgical Hx: None reported Past History - Medical History Allergies/Adverse Reactions: Allergies Allergy/AdvReac Type Severity Reaction Status Date / Time No Known Allergies Allergy Verified 06/15/20 09:33 Home Medications: Ambulatory Orders NK [No Known Home Medication] 06/15/20 Asthma: Yes COPD: No - Reproductive History Is Patient Now?: No - Psycho-Social/Smoking History Smoking Status: No Smoking History: Never smoked Have you smoked in the past 12 months: No Number of Cigarettes Smoked Daily: 0 Information on smoking cessation initiated: Yes - Substance Abuse Hx (Audit-C & DAST Scrn) How often the patient has a drink containing alcohol: Never Score: In Men: 4 or > Positive; In Women: 3 or > Positive: 0 Screen Result (Pos requires Nsg. Audit-10AR): Negative In the last yr the pt used illegal drug/Rx for NonMed reason: No Score: Yes response is considered Positive: 0 Screen Result (Positive result requires Nsg. DAST-10): Negative Review of Systems - Review of Systems Able to Perform ROS?: Yes Comments:: 06/15/20 10:32 "GENERAL/CONSTITUTIONAL: + fever, chills, dizziness. No weakness. HEAD, EYES, EARS, NOSE AND THROAT: No change in vision. No ear pain or discharge. No sore throat. CARDIOVASCULAR: No chest pain, no shortness of breath, no loss of consciousness RESPIRATORY: No cough, wheezing, or hemoptysis. GASTROINTESTINAL: + nausea, vomiting, left lower quadrant abdominal pain, left upper quadrant abdominal pain. No diarrhea or constipation. GENITOURINARY: No dysuria, frequency, or change in urination. MUSCULOSKELETAL: No joint or muscle swelling or pain. No neck or back pain. SKIN: No rash NEUROLOGIC: No change in strength/sensation. ENDOCRINE: No increased thirst. No abnormal weight change. HEMATOLOGIC/LYMPHATIC: No anemia, easy bleeding, or history of blood clots. ALLERGIC/IMMUNOLOGIC: No hives or skin allergy." All Other Systems: Reviewed and Negative *Physical Exam - Vital Signs Last Vital Signs Temp Pulse Resp BP Pulse Ox 98.2 F 98 H 19 140/74 99 06/15/20 09:30 06/15/20 09:30 06/15/20 09:30 06/15/20 09:30 06/15/20 09:30 - Physical Exam 06/15/20 09:49 "GENERAL: Awake, alert, and fully oriented, in no acute distress. HEAD: No signs of trauma EYES: PERRLA, EOMI, sclera anicteric, conjunctiva clear ENT: Auricles normal inspection, hearing grossly normal, nares patent, oropharynx clear without exudates. Moist mucosa NECK: Nontender, no stepoffs, Normal ROM, supple, no lymphadenopathy, JVD, or masses LUNGS: Breath sounds equal, clear to auscultation bilaterally. No wheezes, and no crackles HEART: Regular rate and rhythm, normal S1 and S2, no murmurs, rubs or gallops ABDOMEN: + LLQ TTP, normoactive bowel sounds. No guarding, no rebound. No masses EXTREMITIES: Normal range of motion, no edema. No clubbing or cyanosis. No cords, erythema, or tenderness NEUROLOGICAL: Cranial nerves II through XII intact. 5/5 strength and sensation in all extremities, Normal speech, normal gait, normal cerebellar function SKIN: Warm, Dry, normal turgor, no rashes or lesions noted." ED Treatment Course - LABORATORY CBC & Chemistry Diagram: 06/17/20 07:37 06/17/20 07:37 Medical Decision Making - Critical Care Time Total Critical Care Time (minutes): 30 Critical Care Statement: The care of this patient involved high complexity decision making to prevent further life threatening deterioration of the patient's condition and/or to evaluate & treat vital organ system(s) failure or risk of failure. - Medical Decision Making 06/15/20 11:35 54 F with LLQ abdominal pain. Suspect colitis vs diverticulitis. - Labs - CTAP - IVF, tylenol, zofran 06/15/20 15:36 CT shows sigmoid diverticulitis with pneumoperitoneum and abscess Will consult surgery Abx ordered Discharge - Discharge Information Problems reviewed: Yes Clinical Impression/Diagnosis: Abscess of sigmoid colon due to diverticulitis Condition: Stable - Admission Yes - Follow up/Referral - Patient Discharge Instructions - Post Discharge Activity
[2020-06-15 15:19] LABS: URINE APPEARANCE CLEAR; URINE BILIRUBIN NEGATIVE (NEGATIVE); URINE COLOR YELLOW; URINE GLUCOSE (UA) NEGATIVE (NEGATIVE); URINE KETONE 1+ (NEGATIVE); URINE LEUK ESTERASE NEGATIVE (NEGATIVE); URINE NITRITE NEGATIVE (NEGATIVE); URINE PROTEIN TRACE (NEGATIVE); URINE UROBILINOGEN 0.2 mg/dL (0.2-1.0)
[2020-06-15 15:23] LABS: EPI CELLS 10 /uL (0-25.1); HYALINE CASTS 1 /uL (0-3.1); URINE BACTERIA 213 /uL (0-1359); URINE RBC 12 /uL (0-23.9); URINE WBC 7 /uL (0-25.8)
[2020-06-15] MEDS ORDERED: PIPERACILLIN/TAZOB 4.5 GM 4.5 GM/100 ML BAG IVPB ONE ×2 (15:30→15:41)
[2020-06-15] MEDS ORDERED: VANCOMYCIN 1 GM in D5W (PRE-DOCKED) 1,000 MG/250 ML IVPB ONE (15:30)
[2020-06-15] MEDS ORDERED: morphine CARPU-JECT 4 MG/1 ML DISP.SYRIN IVPUSH ONE (15:33)
[2020-06-15] MEDS ORDERED: VANCOMYCIN 1 GRAM (PRE-DOCKED) 1,000 MG/250 ML BAG IVPB ONE (15:41)
[2020-06-15] MEDS ORDERED: morphine SULFATE 4 MG/ML VIAL ONE (15:44)
--- NOTE | 2020-06-15 16:23 | CONSULT ---
<Guero Maguire P - Last Filed: 06/15/20 17:05> - Consultation REQUESTING PROVIDER: Vasu Church -- General Surgery CONSULT REQUEST: We have been asked to surgically evaluate this patient for LLQ pain Hospitalist: HPI: Called to héctor 54 yo female without any significant PMHx, presents to [facility] ED for emergent evaluation of her lower abd pain which began two days ago. States it started around her belly button and moved down towards left groin. Took her temperature at home 101.5F. Took Tylenol which helped. Unable to eat due to pain. Associated with n/vx4 (nbnb). Pain steadily increased so she went to Urgent Care for immediate evaluation. States they took her blood work, performed a pelvic U/S (reportedly unremarkable). Was given a script for antibiotics but never took them. Pain intensified so she came to hospital. States she has never experienced pain like this before. Passing flatus. Also c/o "burning" sensation when she urinates. Admits to occassional brbpr recently. Denies CP, palpitations, SOB or FERGUSON. Denies diarrhea, constipation. Denies flatus or stool from vagina While in the ED, WBC 14.9. Afebrile. Started on Zosyn and Vanco IV. ABD CT scan: acute diverticulitis w/ associated localized penumoperitoneum w/i adjacent mesentery. Probable 1.3 x 1.3 cm intramural abscess w/ in sigmoid wall. No paracolic abscess. Trace pelvic fluid. Mild thickening of urinary bladder dome (most likely reactive). PMHx: Asthma. Hemorrhoids. Obesity. Diverticulits (CT scan 12/07/2018), L5/S1 Spondylolithesis PSHx: Home Medications: None. Allergies: NKDA ROS: CONSTITUTIONAL: Absent: fever(yes), chills, diaphoresis, generalized weakness, malaise, loss of appetite(yes), weight change CARDIOVASCULAR: Absent: syncope, , irregular heart rate, lightheadedness, peripheral edema RESPIRATORY: Absent: cough, wheezing, stridor, hemoptysis GASTROINTESTINAL:Absent: See HPI. GENITOURINARY: Absent: dysuria, frequency, urgency, hesitancy, hematuria, flank pain MUSCULOSKELETAL: Absent: myalgia, arthralgia, joint swelling, back pain, neck pain SKIN: Absent: rash, itching, pallor HEMATOLOGIC/IMMUNOLOGIC: Absent: easy bleeding, easy bruising, lymphadenopathy NEUROLOGIC: Absent: headache, focal weakness, paresthesias, dizziness, unsteady gait, seizure, mental status changes, bladder or bowel incontinence PSYCHIATRIC: Absent: anxiety, depression, suicidal or homicidal ideation, hallucinations. PE: GENERAL: A&O. NAD HEAD: Normal with no signs of trauma. EYES: PERRL, sclera anicteric, conjunctiva clear. NECK: Normal ROM, supple without lymphadenopathy, JVD, or masses. LUNGS: Unlabored respirations on room air. CTA bilat. HEART: RRR ABDOMEN: Obese. LLQ ttp. Mild rebound. No guarding or rigidity. Bowel sounds present. Unable to appreciate organomegaly due to body habitus. No pulsatile mass appreciated. MUSCULOSKELETAL: No CVA tenderness. UE: 2+ pulses, warm, well-perfused. No cyanosis. Cap refill <2 seconds. No peripheral edema. LE: 2+ pulses, warm, well-perfused. No calf tenderness. No peripheral edema. NEUROLOGICAL: Normal speech, gait not observed. PSYCH: Cooperative. Good eye contact. Appropriate mood and affect. SKIN: Warm, dry, normal turgor, no rashes or lesions noted. Last Vital Signs Temp Pulse Resp BP Pulse Ox 98.2 F 92 H 20 132/81 100 06/15/20 09:30 06/15/20 16:00 06/15/20 16:00 06/15/20 16:00 06/15/20 16:00 CBC, BMP 06/15/20 10:45 06/15/20 10:45 Urine Test Results Urine Color Yellow 06/15/20 14:51 Urine Appearance Clear 06/15/20 14:51 Urine pH 5.0 (5.0-8.0) 06/15/20 14:51 Ur Specific Pi[place] >= 1.099 (1.010-1.035) H 06/15/20 14:51 Urine Protein Trace (NEGATIVE) 06/15/20 14:51 Urine Glucose (UA) Negative (NEGATIVE) 06/15/20 14:51 Urine Ketones 1+ (NEGATIVE) H 06/15/20 14:51 Urine Blood Negative (NEGATIVE) 06/15/20 14:51 Urine Nitrite Negative (NEGATIVE) 06/15/20 14:51 Urine Bilirubin Negative (NEGATIVE) 06/15/20 14:51 Ur Leukocyte Esterase Negative (NEGATIVE) 06/15/20 14:51 INR, PTT INR 1.39 (0.83-1.09) H 06/15/20 10:45 A/P: 54 yo female w/ PMHx of acute sigmoid diveticulitis (2019), now admitted with recurrent diverticulitis w/ associated localized penumoperitoneum w/i adjacent mesentery. Probable 1.3 x 1.3 cm intramural abscess w/ in sigmoid wall. No paracolic abscess. Trace pelvic fluid. Mild thickening of urinary bladder dome (most likely reactive). Leukocytosis 14.9. Afebrile. Non-toxic appearing. Stable. -Covid pending; Isolation precaution -NPO -IVF -ID -IV ABX -DVT PPx -GI PPx -Pain management -Serial ABD exams. -Trend WBC -Ofirmev 1gm Q8H prn pain -Had long discussion regarding conservative management vs. surgical which would most definitely involve a colostomy. Patient wishes to try conservative but understands should we need to operate on this admission. -Surgery Team will continue following. Above plan discussed with Dr. Church and agrees. Problem List - Problems (1) Perforation of sigmoid colon due to diverticulitis Code(s): K57.20 - DVTRCLI OF LG INT W PERFORATION AND ABSCESS W/O BLEEDING (2) Obesity (BMI 30-39.9) Code(s): E66.9 - OBESITY, UNSPECIFIED (3) Asthma Code(s): J45.909 - UNSPECIFIED ASTHMA, UNCOMPLICATED (4) Leukocytosis Code(s): D72.829 - ELEVATED WHITE BLOOD CELL COUNT, UNSPECIFIED (5) Abdominal pain Code(s): R10.9 - UNSPECIFIED ABDOMINAL PAIN Qualifiers: Abdominal location: generalized Qualified Code(s): R10.84 - Generalized abdominal pain (6) Spondylolisthesis at L5-S1 level Code(s): M43.17 - SPONDYLOLISTHESIS, LUMBOSACRAL REGION Visit type - Case Type Case Type: ED Admission - Emergency Emergency Visit: Yes Care time: The patient presented to the Emergency Department on the above date and was hospitalized for further evaluation of their emergent condition. - New patient This patient is new to me today: Yes Date on this admission: 06/15/20 <Vasu Church - Last Filed: 06/17/20 16:07> - Consultation Attending Surgeon: I personally saw and examined the patient. My examination reveals a patient with complicated recurrent diverticulitis. I discussed the case with the surgical PA and agree with their findings and plan of care with any exceptions as noted. ~ Vasu Church MD, FACS
--- NOTE | 2020-06-15 16:58 | HP ---
CHIEF COMPLAINT: abdominal pain PCP: None HISTORY OF PRESENT ILLNESS: Patient is a 54 year old female with medical history of asthma, obesity, presents with complaint of left lower quadrant abdominal pain. Endorses pain was sudden in onset and has been worsening over the past two days. She endorses fevers yesterday evening (reportedly 101F) in addition to approx 4 episodes of non bloody non bilious vomiting. She admits that she has not been able to tolerate diet due to the pain, and vomiting. She was seen in Urgent Care yesterday where she describes an ultrasound was performed which she was told was benign. She endorses subjective fevers, chills, however denies shortness of breath, chest pain, palpitations, diarrhea, melena, hematochezia, or hemoptysis. ER course was notable for: (1) CT abdomen, pelvis (2) General surgery consult (3) Recent Travel: PAST MEDICAL HISTORY: asthma, obesity, diverticulitis, spondylolisthesis L5-S1 PAST SURGICAL HISTORY: denies Social History: Smoking: denies Alcohol:denies Drugs: denies Allergies No Known Allergies Allergy (Verified 06/15/20 09:33) HOME MEDICATIONS: Home Medications Medication Instructions Recorded NK [No Known Home Medication] 06/15/20 REVIEW OF SYSTEMS As per HPI PHYSICAL EXAMINATION Vital Signs - 24 hr 06/15/20 06/15/20 09:30 16:00 Temperature 98.2 F Pulse Rate 98 H Pulse Rate [ 92 H Left Radial] Respiratory 19 20 Rate Blood Pressure 140/74 Blood Pressure 132/81 [Right Arm] O2 Sat by Pulse 99 100 Oximetry (%) GENERAL: The patient is awake, alert, and fully oriented, in no acute distress. HEAD: Normocephalic, atraumatic. EYES: PERRL, extraocular movements intact, sclera anicteric, conjunctiva clear. ENT: Oropharynx clear, without erythema or exudates. Moist mucous membranes. NECK: Trachea midline, full range of motion. Supple without lymphadenopathy. LUNGS: Breath sounds equal, clear to auscultation bilaterally. No wheezes, no crackles. No accessory muscle use. HEART: Regular rate and rhythm. S1, S2 without murmur, rub or gallop. ABDOMEN: Obese abdomen. Soft, diffusely tender to palpation, worst at left upper and lower quadrants. No rebound tenderness, no guarding. Hypoactive bowel sounds x4 quadrants. No hepatosplenomegaly, no masses appreciated. EXTREMITIES: 2+ radial, dorsalis pedis pulses bilaterally. Warm, well-perfused. No lower extremity edema bilaterally. NEUROLOGICAL: Cranial nerves II through XII grossly intact. Normal speech. No gross focal deficits. PSYCH: Normal mood, normal affect upon my encounter. SKIN: Warm, dry. Laboratory Results - last 24 hr 06/15/20 06/15/20 06/15/20 10:45 10:45 10:45 WBC 14.9 H RBC 4.43 Hgb 10.8 Hct 34.7 MCV 78.2 L MCH 24.3 L MCHC 31.0 L RDW 16.7 H Plt Count 414 MPV 7.0 L Absolute Neuts (auto) 12.2 H Neutrophils % 81.7 D Lymphocytes % 8.6 D Monocytes % 8.7 Eosinophils % 0.1 D Basophils % 0.9 Nucleated RBC % 0 PT with INR 16.50 H INR 1.39 H PTT (Actin FS) 34.4 Sodium 136 Potassium 4.3 Chloride 101 Carbon Dioxide 28 Anion Gap 7 L BUN 11.1 Creatinine 0.5 L Est GFR (CKD-EPI)AfAm 126.28 Est GFR (CKD-EPI)NonAf 108.96 Random Glucose 86 Calcium 9.0 Total Bilirubin 0.5 AST 15 ALT 21 Alkaline Phosphatase 64 Creatine Kinase 367 H Creatine Kinase Index 0.4 CK-MB (CK-2) 1.7 Troponin I < 0.02 Total Protein 7.1 Albumin 3.4 Lipase 105 Urine Color Urine Appearance Urine pH Ur Specific Cedar Urine Protein Urine Glucose (UA) Urine Ketones Urine Blood Urine Nitrite Urine Bilirubin Urine Urobilinogen Ur Leukocyte Esterase Urine WBC (Auto) Urine RBC (Auto) Urine Casts (Auto) U Epithel Cells (Auto) Urine Bacteria (Auto) 06/15/20 14:51 WBC RBC Hgb Hct MCV MCH MCHC RDW Plt Count MPV Absolute Neuts (auto) Neutrophils % Lymphocytes % Monocytes % Eosinophils % Basophils % Nucleated RBC % PT with INR INR PTT (Actin FS) Sodium Potassium Chloride Carbon Dioxide Anion Gap BUN Creatinine Est GFR (CKD-EPI)AfAm Est GFR (CKD-EPI)NonAf Random Glucose Calcium Total Bilirubin AST ALT Alkaline Phosphatase Creatine Kinase Creatine Kinase Index CK-MB (CK-2) Troponin I Total Protein Albumin Lipase Urine Color Yellow Urine Appearance Clear Urine pH 5.0 Ur Specific Cedar >= 1.099 H Urine Protein Trace Urine Glucose (UA) Negative Urine Ketones 1+ H Urine Blood Negative Urine Nitrite Negative Urine Bilirubin Negative Urine Urobilinogen 0.2 Ur Leukocyte Esterase Negative Urine WBC (Auto) 7 Urine RBC (Auto) 12 Urine Casts (Auto) 1 U Epithel Cells (Auto) 10 Urine Bacteria (Auto) 213 ASSESSMENT/PLAN: Patient is a 54 year old female with medical history of asthma, obesity, presents with complaint of left lower quadrant abdominal pain. -Sepsis secondary to acute diverticulitis -CT abdomen pelvis confirms acute diverticulitis, with pneumoperitoneum, and abscess collection -General surgery recommendations (Dr. Church) appreciated. Will continue conservative management for now -NPO -IV normal saline at 100mL /hour -Serial abdominal exams -Vancomycin, Zosyn -Follow blood cultures -ID consult (Dr. Buckner) -Pain control with Ofirmev -Pantoprazole 40mg IV daily History of asthma -Currently not in exacerbation -Albuterol inhaler 2 puffs Q4 hours PRN for shortness of breath FEN -IV normal saline at 100mL /hour -Follow BMP -NPO Prophylaxis -SCDs bilateral lower extremities. Holding chemical anticoagulation for possibil ity of surgical intervention. -Pantoprazole 40mg IV daily Disposiiton Admit to medical surgical floor. Family Medical History Family History: Unremarkable Visit type - Emergency Visit Emergency Visit: Yes ED Registration Date: 06/15/20 Care time: The patient presented to the Emergency Department on the above date and was hospitalized for further evaluation of their emergent condition. - New Patient This patient is new to me today: Yes Date on this admission: 06/15/20 - Critical Care Critical Care patient: No ATTENDING PHYSICIAN STATEMENT I saw and evaluated the patient. I reviewed the resident's note and discussed the case with the resident. I agree with the resident's findings and plan as documented. SUBJECTIVE: OBJECTIVE: ASSESSMENT AND PLAN:
[2020-06-15] MEDS ORDERED: SODIUM CHLORIDE 1,000 ML IV SCH (17:00)
[2020-06-15] MEDS ORDERED: ALBUTEROL SO4 HFA INHALER IH PRN (17:27)
[2020-06-15] MEDS: PANTOPRAZOLE SODIUM 40 MG VIAL IVPUSH SCH (18:15)
[2020-06-15] MEDS ORDERED: PANTOPRAZOLE SODIUM 40 MG/100 ML BAG IVPB ONE (18:22)
[2020-06-15] MEDS ORDERED: PIPERACILLIN/TAZOB 3.375 GM 3.375 GM in DEXTROSE 5%-WATER - 50 ML IVPB SCH (23:00)
[2020-06-16] MEDS ORDERED: PIPERACILLIN/TAZOB 3.375 GM 3.375 GM/50 ML BAG IVPB ONE ×2 (01:02→11:41)
[2020-06-16] MEDS ORDERED: ACETAMINOPHEN INJECTION 100 ML IVPB ONE ×2 (01:33→10:43)
[2020-06-16] MEDS: ACETAMINOPHEN 1000 MG/100 ML VIAL (NON FORMULARY) IVPB PRN ×2 (01:37→11:19)
[2020-06-16] MEDS ORDERED: VANCOMYCIN 1 GRAM (PRE-DOCKED) 1,000 MG/250 ML BAG IVPB ONE (04:41)
[2020-06-16] MEDS ORDERED: VANCOMYCIN 1 GM in D5W (PRE-DOCKED) 1,000 MG/250 ML IVPB ONE (05:00)
[2020-06-16 07:12] LABS: ALBUMIN 2.8 g/dl (3.4-5.0); BILIRUBIN,TOTAL 0.7 mg/dL (0.2-1); BLOOD UREA NITROGEN 8.2 mg/dL (7-18); CALCIUM 8.4 mg/dL (8.5-10.1); CREATININE 0.5 mg/dL (0.55-1.3); MAGNESIUM 2.1 mg/dL (1.8-2.4); PHOSPHOROUS 3.1 mg/dL (2.5-4.9); POTASSIUM 3.9 mmol/L (3.5-5.1); TOT PROT 6.1 g/dl (6.4-8.2)
[2020-06-16 07:15] LABS: HEMATOCRIT 31.4 % (32.4-45.2); HEMOGLOBIN 9.8 GM/dL (10.7-15.3); MCH 24.7 pg (25.7-33.7); MCHC 31.3 g/dl (32.0-36.0); MEAN CELL VOLUME 79.1 fl (80-96); MEAN PLT VOLUME 7.3 fl (7.5-11.1); PLATELET COUNT 373 K/MM3 (134-434); RBC 3.97 M/mm3 (3.60-5.2); RDW 16.3 % (11.6-15.6); WHITE BLOOD COUNT 12.9 K/mm3 (4.0-10.0)
--- NOTE | 2020-06-16 08:14 | PN ---
Progress Note (short form) - Note Progress Note: GENERAL SURGERY 54 yo female w/ PMHx of acute sigmoid diveticulitis (2019), now admitted with recurrent diverticulitis w/ associated localized penumoperitoneum w/i adjacent mesentery. Probable 1.3 x 1.3 cm intramural abscess w/ in sigmoid wall. No paracolic abscess. Trace pelvic fluid. Mild thickening of urinary bladder dome (most likely reactive). Since I last saw and examined patient yesterday, her ABD pain has increased... states it's worse than yesterday now 15 (on a scale of 1-10). Hurts if she tries to adjust herself in the bed. Prefers to lay still. Her WBC was 14 yesterday but she's been on IV ABX. Last Vital Signs Temp Pulse Resp BP Pulse Ox 98.9 F 78 16 111/62 99 06/16/20 07:31 06/16/20 07:31 06/16/20 07:31 06/16/20 07:31 06/16/20 07:31 CBC, BMP 06/16/20 06:05 06/16/20 06:00 INR, PTT INR 1.39 (0.83-1.09) H 06/15/20 10:45 Serology Tests 06/15/20 11:30 COVID-19 (BATOOL) Pending A/P: acute (recurrent) sigmoid diverticulitis with perforation, intramural abscess within wall of sigmoid colon. ABD pain increasing. Peritneal signs on physical exam. Explained in detail the procedure (laparotomy with colostomy). Made aware that she will have this for at least six months. Understands and wishes to proceed. -Rapid Covid test ordered because COVID OR is currently being used. Must wait 45 mins in between cases. Given nature of diagnosis and need for surgery, Dr. Lee and Christina are requesting this test. - OR today for Laparotomy/colostomy - Medical optimization / clearance Dr. lee aware and agrees with plan as outlined above. Problem List - Problems (1) Perforation of sigmoid colon due to diverticulitis Code(s): K57.20 - DVTRCLI OF LG INT W PERFORATION AND ABSCESS W/O BLEEDING (2) Obesity (BMI 30-39.9) Code(s): E66.9 - OBESITY, UNSPECIFIED (3) Asthma Code(s): J45.909 - UNSPECIFIED ASTHMA, UNCOMPLICATED (4) Leukocytosis Code(s): D72.829 - ELEVATED WHITE BLOOD CELL COUNT, UNSPECIFIED (5) Abdominal pain Code(s): R10.9 - UNSPECIFIED ABDOMINAL PAIN Qualifiers: Abdominal location: generalized Qualified Code(s): R10.84 - Generalized abdominal pain (6) Spondylolisthesis at L5-S1 level Code(s): M43.17 - SPONDYLOLISTHESIS, LUMBOSACRAL REGION
[2020-06-16] MEDS ORDERED: PANTOPRAZOLE SODIUM 40 MG/100 ML BAG IVPB ONE (10:43)
[2020-06-16] MEDS: PANTOPRAZOLE SODIUM 40 MG VIAL IVPUSH SCH (10:57)
--- NOTE | 2020-06-16 11:28 | PN ---
Teaching Attending Note Name of Resident: Carlton Adame ATTENDING PHYSICIAN STATEMENT I saw and evaluated the patient. I reviewed the resident's note and discussed the case with the resident. I agree with the resident's findings and plan as documented. SUBJECTIVE: Patient seen and examined at bedside, admitted for LLQ pain 2/2 diverticulitis w/ microperforation, will make NPO and continue abx, VSS. OBJECTIVE: GA mild distress, AAox3 HEENT NC/AT, dry MM, neck supple, EOMI Chest CTAB, no crackles or wheezing CVS s1, S2+, RRR Abd LLQ pain to palpation, no guarding, BS+, no RLQ pain/periumbilical pain. Vital Signs (72 hours) 06/15/20 06/15/20 06/15/20 09:30 10:39 16:00 Temperature 98.2 F Pulse Rate 98 H Pulse Rate [ 92 H Left Radial] Pulse Rate [ Right Radial] Respiratory 19 20 Rate Blood Pressure 140/74 Blood Pressure 132/81 [Right Arm] O2 Sat by Pulse 99 99 100 Oximetry (%) 06/15/20 06/15/20 06/16/20 17:21 21:00 00:00 Temperature 101.0 F H 99.9 F H Pulse Rate 82 Pulse Rate [ Left Radial] Pulse Rate [ Right Radial] Respiratory 16 Rate Blood Pressure 108/60 Blood Pressure [Right Arm] O2 Sat by Pulse 98 98 Oximetry (%) 06/16/20 06/16/20 02:34 07:31 Temperature 98.9 F Pulse Rate Pulse Rate [ Left Radial] Pulse Rate [ 101 H 78 Right Radial] Respiratory 18 16 Rate Blood Pressure Blood Pressure 109/60 111/62 [Right Arm] O2 Sat by Pulse 97 99 Oximetry (%) Microbiology 06/15/20 14:51 Urine - Urine Clean Catch Urine Culture - Preliminary Laboratory Results - last 24 hr 06/15/20 06/15/20 06/16/20 10:45 14:51 06:00 WBC RBC Hgb Hct MCV MCH MCHC RDW Plt Count MPV Sodium 136 140 Potassium 4.3 3.9 Chloride 101 106 Carbon Dioxide 28 25 Anion Gap 7 L 9 BUN 11.1 8.2 Creatinine 0.5 L 0.5 L Est GFR (CKD-EPI)AfAm 126.28 126.28 Est GFR (CKD-EPI)NonAf 108.96 108.96 Random Glucose 86 103 Calcium 9.0 8.4 L Phosphorus 3.1 Magnesium 2.1 Total Bilirubin 0.5 0.7 AST 15 11 L ALT 21 20 Alkaline Phosphatase 64 62 Creatine Kinase 367 H Creatine Kinase Index 0.4 CK-MB (CK-2) 1.7 Troponin I < 0.02 Total Protein 7.1 6.1 L Albumin 3.4 2.8 L Lipase 105 Urine Color Yellow Urine Appearance Clear Urine pH 5.0 Ur Specific Prescott >= 1.099 H Urine Protein Trace Urine Glucose (UA) Negative Urine Ketones 1+ H Urine Blood Negative Urine Nitrite Negative Urine Bilirubin Negative Urine Urobilinogen 0.2 Ur Leukocyte Esterase Negative Urine WBC (Auto) 7 Urine RBC (Auto) 12 Urine Casts (Auto) 1 U Epithel Cells (Auto) 10 Urine Bacteria (Auto) 213 SARS-CoV-2 (PCR) 06/16/20 06/16/20 06:05 09:00 WBC 12.9 H RBC 3.97 Hgb 9.8 L Hct 31.4 L MCV 79.1 L MCH 24.7 L MCHC 31.3 L RDW 16.3 H Plt Count 373 MPV 7.3 L Sodium Potassium Chloride Carbon Dioxide Anion Gap BUN Creatinine Est GFR (CKD-EPI)AfAm Est GFR (CKD-EPI)NonAf Random Glucose Calcium Phosphorus Magnesium Total Bilirubin AST ALT Alkaline Phosphatase Creatine Kinase Creatine Kinase Index CK-MB (CK-2) Troponin I Total Protein Albumin Lipase Urine Color Urine Appearance Urine pH Ur Specific Prescott Urine Protein Urine Glucose (UA) Urine Ketones Urine Blood Urine Nitrite Urine Bilirubin Urine Urobilinogen Ur Leukocyte Esterase Urine WBC (Auto) Urine RBC (Auto) Urine Casts (Auto) U Epithel Cells (Auto) Urine Bacteria (Auto) SARS-CoV-2 (PCR) Negative Home Medications Medication Instructions Recorded NK [No Known Home Medication] 06/15/20 Current Medications Generic Name Dose Route Start Last Admin Trade Name Freq PRN Reason Stop Dose Admin Acetaminophen 1,000 mg 06/15/20 22:00 06/16/20 11:19 Ofirmev Injection - IVPB 06/16/20 17:28 1,000 mg Q6H PRN Administration PAIN LEVEL 1-5 Albuterol Sulfate 2 puff 06/15/20 17:27 Ventolin Hfa Inhaler - IH Q4H PRN SHORT OF BREATH/WHEEZING Metronidazole 500 mg in 100 mls @ 100 mls/hr 06/16/20 08:00 06/16/20 10:18 Flagyl 500mg Premixed Ivpb - IVPB 100 mls/hr Q8H-IV CHRISTINE Administration Piperacillin Sod/Tazobactam 50 mls @ 100 mls/hr 06/16/20 12:00 Sod 3.375 gm/ Dextrose IVPB Q8H-IV CHRISTINE Protocol Pantoprazole Sodium 40 mg 06/15/20 17:30 06/16/20 10:57 Protonix Iv IVPUSH 40 mg DAILY CHRISTINE Administration ASSESSMENT AND PLAN: 54 F Complicated diverticulitis w/ microperforation Obesity GERD Plan: IV abx w/ Zosyn/Flagyl Strict NPO Supplement IV PPI for GERD symptoms IV Tylenol for fevers/pain Surgery following DVT ppx: SCD
[2020-06-16] MEDS ORDERED: PIPERACILLIN/TAZOB 3.375 GM 3.375 GM in DEXTROSE 5%-WATER - 50 ML IVPB SCH ×2 (12:00)
[2020-06-16] MEDS ORDERED: BENZOIN/ALOE VERA/STORAX/TOLU 58 ML BOTTLE ONE (12:54)
[2020-06-16] MEDS ORDERED: fentaNYL CITRATE 250 MCG/5 ML VIAL ONE (12:55)
[2020-06-16] MEDS ORDERED: SUCCINYLCHOLINE CHLORIDE 200 MG/10 ML SYRINGE ONE (12:56)
[2020-06-16] MEDS ORDERED: PROPOFOL 20 ML ONE (12:56)
[2020-06-16] MEDS ORDERED: ROCURONIUM BROMIDE 100 MG/10 ML VIAL ONE ×2 (12:56→14:20)
--- NOTE | 2020-06-16 13:24 | EKG ---
Test Reason : Blood Pressure : / mmHG Vent. Rate : 083 BPM Atrial Rate : 083 BPM P-R Int : 146 ms QRS Dur : 088 ms QT Int : 378 ms P-R-T Axes : 049 036 034 degrees QTc Int : 444 ms NORMAL SINUS RHYTHM NORMAL ECG WHEN COMPARED WITH ECG OF 13-APR-2018 05:12, NO SIGNIFICANT CHANGE WAS FOUND Confirmed by SILVIO EDMOND MD ([id number]) on 06/16/2020 1:23:50 PM Referred By: Confirmed By:SILVIO EDMOND MD
[2020-06-16] MEDS ORDERED: DEXAMETHASONE SOD PHOSPHATE 4 MG/1 ML VIAL ONE (13:33)
[2020-06-16] MEDS ORDERED: HYDROmorphone HCl 2 MG/ML VIAL ONE (13:49)
--- NOTE | 2020-06-16 14:54 | CON.ID ---
Consult Consult Specialty:: infectious diseases Referred by:: hospitalist Reason for Consultation:: aabd pain,perforation - History of Present Illness Chief Complaint: abd pain History of Present Illness: 54 year old female with medical history of asthma, obesity, presents with complaint of left lower quadrant abdominal pain. Endorses pain was sudden in onset and has been worsening over the past two days. She endorses fevers y esterday evening (reportedly 101F) in addition to approx 4 episodes of non bloody non bilious vomiting. She admits that she has not been able to tolerate diet due to the pain, and vomiting. She was seen in Urgent Care yesterday where she describes an ultrasound was performed which she was told was benign. She endorses subjective fevers, chills, however denies shortness of breath, chest pain, palpitations, diarrhea, melena, hematochezia, or hemoptysis. patient was worked up and found to have perforation and the plan is to take the patient to the operating room - History Source History Provided By: Patient Limitations to Obtaining History: No Limitations - Past Medical History ...LMP: 06/15/10 ...: No - Alcohol/Substance Use Hx Alcohol Use: No - Smoking History Smoking history: Never smoked Have you smoked in the past 12 months: No Aproximately how many cigarettes per day: 0 Home Medications - Allergies Allergies/Adverse Reactions: Allergies Allergy/AdvReac Type Severity Reaction Status Date / Time No Known Allergies Allergy Verified 06/15/20 09:33 - Home Medications Home Medications: Ambulatory Orders NK [No Known Home Medication] 06/15/20 Review of Systems - Review of Systems Constitutional: reports: Fever Eyes: reports: No Symptoms HENT: reports: No Symptoms Neck: reports: No Symptoms Cardiovascular: reports: No Symptoms Respiratory: reports: No Symptoms Gastrointestinal: reports: Abdominal Pain, Other Genitourinary: reports: No Symptoms Musculoskeletal: reports: No Symptoms Integumentary: reports: No Symptoms Neurological: reports: No Symptoms Endocrine: reports: No Symptoms Hematology/Lymphatic: reports: No Symptoms Psychiatric: reports: No Symptoms Physical Exam Vital Signs: Vital Signs Temperature 98.9 F 06/16/20 12:09 Pulse Rate 96 H 06/16/20 12:09 Respiratory Rate 19 06/16/20 12:09 Blood Pressure 101/64 06/16/20 12:09 O2 Sat by Pulse Oximetry (%) 98 06/16/20 12:09 Constitutional: Yes: Moderate Distress, Other Eyes: Yes: Conjunctiva Clear HENT: Yes: Atraumatic, Normocephalic, Other Neck: Yes: Supple Cardiovascular: Yes: Regular Rate and Rhythm Respiratory: Yes: Regular, CTA Bilaterally Gastrointestinal: Yes: Tenderness, Other (absent bowel sounds) Musculoskeletal: Yes: WNL Extremities: Yes: WNL Neurological: Yes: Alert, Oriented Psychiatric: Yes: Alert, Oriented Labs: CBC, BMP 06/16/20 06:05 06/16/20 06:00 Imaging - Results Chest X-ray: Report Reviewed, Image Reviewed Cat Scan: Report Reviewed, Image Reviewed Assessment/Plan Abscess of sigmoid colon due to diverticulitis (Acute) Asthma (Acute) Leukocytosis (Acute) Obesity (BMI 30-39.9) (Acute) Perforation of sigmoid colon due to diverticulitis (Acute) leukocytosis plan abx patient for or npo hydration close watch rest as per the team
--- NOTE | 2020-06-16 15:04 | PN ---
Physical Exam: SUBJECTIVE: Patient seen and examined in the ED this morning, in no acute distress. Ptn endorsing LLQ pain that is non-radiating, variable in intensity and worse with movement. States 15/10 pain, which hurts to just think about. Denies any bowel movements or flatus. Denies F/C, GORDILLO, changes in vision, CP, SoB, current N/V. OBJECTIVE: Vital Signs Period Temp Pulse Resp BP Sys/Wood Pulse Ox Last 24 Hr 98.9 F-101.0 F 78-101 16-20 101-132/60-81 97-100 GENERAL: The patient is awake, alert, and fully oriented, in no acute distress. HEAD: Normal with no signs of trauma. EYES: PERRL, extraocular movements intact, sclera anicteric, conjunctiva clear. No ptosis. ENT: Ears normal, nares patent, oropharynx clear without exudates, moist mucous membranes. NECK: Trachea midline, full range of motion, supple. LUNGS: Breath sounds equal, clear to auscultation bilaterally, no wheezes, no crackles, no accessory muscle use. HEART: Regular rate and rhythm, S1, S2 without murmur, rub or gallop. ABDOMEN: LLQ pain on light palpation. Suprapubic pain on palpation. Soft, nondistended, hypoactive bowel sounds, no guarding EXTREMITIES: 2+ pulses, warm, well-perfused, no edema. NEUROLOGICAL: Normal speech, gait not observed. PSYCH: Normal mood, normal affect. SKIN: Warm, dry, normal turgor, no rashes or lesions noted Laboratory Results - last 24 hr CBC, BMP 06/16/20 06:05 06/16/20 06:00 Active Medications Generic Name Dose Route Start Last Admin Trade Name Freq PRN Reason Stop Dose Admin Albuterol Sulfate 2 puff 06/16/20 16:20 Ventolin Hfa Inhaler - IH Q4H PRN SHORT OF BREATH/WHEEZING Fentanyl 25 mcg 06/16/20 16:20 Sublimaze Injection - IVPUSH Q5M PRN PAIN-PACU ORDER X 4 DOSES ONLY Heparin Sodium (Porcine) 5,000 unit 06/16/20 22:00 Heparin - SQ TID CHRISTINE Hydromorphone HCl 10 mg 06/16/20 16:20 Hydromorphone 10 Mg/50 Ml-Ns PROCESS DESCRIPTION WRITER 06/23/20 15:54 PROCESS DESCRIPTION WRITER CHRISTINE Protocol Metronidazole 500 mg in 100 mls @ 100 mls/hr 06/16/20 18:00 Flagyl 500mg Premixed Ivpb - IVPB Q8H-IV CHRISTINE Piperacillin Sod/Tazobactam 50 mls @ 100 mls/hr 06/17/20 10:00 Sod 3.375 gm/ Dextrose IVPB Q8H-IV CHRISTINE Protocol Piperacillin Sod/Tazobactam 50 mls @ 100 mls/hr 06/16/20 18:00 Sod 3.375 gm/ Dextrose IVPB 06/17/20 02:29 Q8H-IV CHRISTINE Protocol Lactated Ringer's 1,000 ml in 1,000 mls @ 125 mls/hr 06/16/20 18:15 Lactated Ringers Solution IV ASDIR CHRISTINE Ondansetron HCl 4 mg 06/16/20 16:20 Zofran Injection IVPUSH Q6H PRN NAUSEA AND/OR VOMITING Pantoprazole Sodium 40 mg 06/17/20 10:00 Protonix Iv IVPUSH DAILY CHRISTINE ASSESSMENT/PLAN: 54 yo F w/ PMHx of acute sigmoid diverticulitis (11/2018), asthma, obesity, and herniated disc (L4-L5 Dr. Bolton), presents with left lower quadrant abdominal pain. Admitted for recurrent diverticulitis w/ associated localized pneumoperitoneum within the adjacent mesentery. Additional 1.3 x 1.3 cm intramural abscess noted in sigmoid wall on imaging. SEPSIS 2/2 ACUTE SIGMOID DIVERTICULTIS W/ CONTAINED PERFORATION -Tmax 101.0 w/ WBC Max 14.9 -CT Abd/Pelv: Acute sigmoid diverticulitis w/ small localized pneumoperitoneum within the adjacent mesentery. Probable 1.3 x 1.3 cm intramural abscess within the inflamed sigmoid colon wall. There is no definite paracolic abscess. Trace pelvic free fluid. Mild thickening of the urinary bladder dome adjacent to the area of sigmoid diverticulitis probably on a reactive basis. -Per Gen Surg: -NPO -Laparotomy/colostomy for today: POD #0 -Pain control per surgery protocol -Per ID: -Zosyn 3.375 Q8 Day 2 -Per Primary -Flagyl 500mg Q8 Day 1 -FU s/p Surgery -FU Blood Cx -FU Urine Cx -c/w Ofirmev -c/w Pantoprazole 40mg IV daily -c/w Zofran 4mg Q6PRN HISTORY OF ASTHMA -Satting at 97-100% on RA -No wheezing on auscultation -c/w Albuterol 2puffs Q4 PRN FEN -No standing fluids -BMP -NPO --> advance diet as per surgery recs PPx -DVT: SCDs, no chemical AC 2/2 upcoming surgery -GI: Protonix 40mg IV qdaily DISPO -Continue to monitor on medical/surgical floors Visit type - Emergency Visit Emergency Visit: Yes ED Registration Date: 06/15/20 Care time: The patient presented to the Emergency Department on the above date and was hospitalized for further evaluation of their emergent condition. - New Patient This patient is new to me today: Yes Date on this admission: 06/16/20 - Critical Care Critical Care patient: No - Discharge Referral Referred to [facility] Med P.C.: No ATTENDING PHYSICIAN STATEMENT I saw and evaluated the patient. I reviewed the resident's note and discussed the case with the resident. I agree with the resident's findings and plan as documented. SUBJECTIVE: OBJECTIVE: ASSESSMENT AND PLAN:
[2020-06-16] MEDS ORDERED: GLYCOPYRROLATE 0.2 MG/1 ML VIAL ONE (15:25)
[2020-06-16] MEDS ORDERED: NEOSTIGMINE METHYLSULFATE 0.5 MG/ML - 10 ML MDV ONE (15:25)
[2020-06-16] MEDS ORDERED: HYDROmorphone *PCA* 10MG/50ML DISP.SYRIN ONE (15:49)
[2020-06-16] MEDS ORDERED: ONDANSETRON 4 MG/2 ML VIAL IVPUSH PRN (15:54)
[2020-06-16] MEDS ORDERED: HYDROmorphone *PCA* 10MG/50ML DISP.SYRIN PCA SCH (16:00)
--- NOTE | 2020-06-16 16:01 | OP ---
Operative Note - Note: Operative Date: 06/16/20 Pre-Operative Diagnosis: Acute sigmoid diverticulitis w/ perforation (contained). Operation: Laparotomy, colostomy Post-Operative Diagnosis: Same as Pre-op Surgeon: Vasu Church Engineering Specialist: Guero Maguire Anesthesiologist/MANAGEMENT DEVELOPER: Miguel Chance Anesthesia: General Specimens Removed: sigmoid Estimated Blood Loss (mls): 100 Drains & Tubes with Location: RLQ RAMON drain Drains, Volume Out (mls): 125 (Harmon) Fluid Volume Replaced (mls): 2,200 (LR) Operative Report Dictated: Yes
--- NOTE | 2020-06-16 16:05 | SURG ---
Surgery Torch Shearer Note Torch Shearer: Guero Maguire PA-C Date of Service: 06/16/20 Diagnosis: Acute sigmoid diverticulitis (recurrent) with perforation (contained) Procedure: Laparotomy, colostomy I was present for the entirety of the operative procedure. For further detail, please refer to operative report. Visit type - Case Type Case Type: ED Admission
--- NOTE | 2020-06-16 16:19 | PN ---
Teaching Attending Note Name of Resident: Ever Hathaway ATTENDING PHYSICIAN STATEMENT I saw and evaluated the patient. I reviewed the resident's note and discussed the case with the resident. I agree with the resident's findings and plan as documented. SUBJECTIVE: Patient is s/p OR OBJECTIVE: Vital Signs Temperature 98.9 F 06/16/20 12:09 Pulse Rate 96 H 06/16/20 12:09 Respiratory Rate 19 06/16/20 12:09 Blood Pressure 101/64 06/16/20 12:09 O2 Sat by Pulse Oximetry (%) 98 06/16/20 12:09 PE: per resident's note CBCD WBC 12.9 K/mm3 (4.0-10.0) H 06/16/20 06:05 RBC 3.97 M/mm3 (3.60-5.2) 06/16/20 06:05 Hgb 9.8 GM/dL (10.7-15.3) L 06/16/20 06:05 Hct 31.4 % (32.4-45.2) L 06/16/20 06:05 MCV 79.1 fl (80-96) L 06/16/20 06:05 MCHC 31.3 g/dl (32.0-36.0) L 06/16/20 06:05 RDW 16.3 % (11.6-15.6) H 06/16/20 06:05 Plt Count 373 K/MM3 (134-434) 06/16/20 06:05 MPV 7.3 fl (7.5-11.1) L 06/16/20 06:05 CMP Sodium 140 mmol/L (136-145) 06/16/20 06:00 Potassium 3.9 mmol/L (3.5-5.1) 06/16/20 06:00 Chloride 106 mmol/L (98-107) 06/16/20 06:00 Carbon Dioxide 25 mmol/L (21-32) 06/16/20 06:00 Anion Gap 9 MMOL/L (8-16) 06/16/20 06:00 BUN 8.2 mg/dL (7-18) 06/16/20 06:00 Creatinine 0.5 mg/dL (0.55-1.3) L 06/16/20 06:00 Random Glucose 103 mg/dL (74-106) 06/16/20 06:00 Calcium 8.4 mg/dL (8.5-10.1) L 06/16/20 06:00 Total Bilirubin 0.7 mg/dL (0.2-1) 06/16/20 06:00 AST 11 U/L (15-37) L 06/16/20 06:00 ALT 20 U/L (13-61) 06/16/20 06:00 Alkaline Phosphatase 62 U/L (45-117) 06/16/20 06:00 Total Protein 6.1 g/dl (6.4-8.2) L 06/16/20 06:00 Albumin 2.8 g/dl (3.4-5.0) L 06/16/20 06:00 CARDIAC ENZYMES Creatine Kinase 367 U/L (26-192) H 06/15/20 10:45 Troponin I < 0.02 ng/ml (0.00-0.05) 06/15/20 10:45 Current Medications Generic Name Dose Route Start Last Admin Trade Name Freq PRN Reason Stop Dose Admin Acetaminophen 1,000 mg 06/15/20 22:00 06/16/20 11:19 Ofirmev Injection - IVPB 06/16/20 17:28 1,000 mg Q6H PRN Administration PAIN LEVEL 1-5 Albuterol Sulfate 2 puff 06/15/20 17:27 Ventolin Hfa Inhaler - IH Q4H PRN SHORT OF BREATH/WHEEZING Fentanyl 25 mcg 06/16/20 15:54 Sublimaze Injection - IVPUSH [id number] PRN PAIN-PACU ORDER X 4 DOSES ONLY Heparin Sodium (Porcine) 5,000 unit 06/16/20 22:00 Heparin - SQ TID CHRISTINE Hydromorphone HCl 10 mg 06/16/20 16:00 Hydromorphone 10 Mg/50 Ml-Ns PORCELAIN ENAMEL INSTALLER 06/23/20 15:54 PORCELAIN ENAMEL INSTALLER CHRISTINE Protocol Metronidazole 500 mg in 100 mls @ 100 mls/hr 06/16/20 08:00 06/16/20 10:18 Flagyl 500mg Premixed Ivpb - IVPB 100 mls/hr Q8H-IV CHRISTINE Administration Piperacillin Sod/Tazobactam 50 mls @ 100 mls/hr 06/16/20 12:00 06/16/20 11:47 Sod 3.375 gm/ Dextrose IVPB 100 mls/hr Q8H-IV CHRISTINE Administration Protocol Ondansetron HCl 4 mg 06/16/20 15:54 Zofran Injection IVPUSH Q6H PRN NAUSEA AND/OR VOMITING Pantoprazole Sodium 40 mg 06/15/20 17:30 06/16/20 10:57 Protonix Iv IVPUSH 40 mg DAILY CHRISTINE Administration Microbiology 06/15/20 14:51 Urine - Urine Clean Catch Urine Culture - Preliminary Home Medications Medication Instructions Recorded NK [No Known Home Medication] 06/15/20 CT Abd/Pelv: Acute sigmoid diverticulitis with small localized pneumoperitoneum within the adjacent mesentery. Probable 1.3 x 1.3 cm intramural abscess within the inflamed sigmoid colon wall. There is no definite paracolic abscess. Trace pelvic free fluid. Mild thickening of the urinary bladder dome adjacent to the area of sigmoid diverticulitis probably on a reactive basis. ASSESSMENT AND PLAN: This patient is a 54yof with PMhx of sigmoid diverticulitis (11/2018), asthma, obesity, and herniated disc (L4-L5 Dr. Bolton), presents with left lower quadrant abdominal pain. and was found to have acute recurrent diverticulitis with localized pneumoperitoneum within the adjacent mesentery. #Sepsis due to acute sigmoid diverticulitis with contained perforation. presented with fever with localized pneumoperitoneum s/p Laparotomy, colostomy POD#0 , NPO, pain control , Zosyn 3.375 Q8 and added Iv flagyl continue, follow blood cx and bx result #Hx of asthma: duneb prn DVT: SCDs, no chemical AC today , will start in am if its ok with the surgeon GI: Protonix 40mg npo
[2020-06-16] MEDS ORDERED: ALBUTEROL SO4 HFA INHALER IH PRN (16:20)
[2020-06-16] MEDS ORDERED: ACETAMINOPHEN 1000 MG/100 ML VIAL (NON FORMULARY) IVPB PRN (16:20)
[2020-06-16] MEDS ORDERED: HYDROmorphone *PCA* 10MG/50ML DISP.SYRIN PCA ONE (16:30)
[2020-06-16 18:23] VITALS: BMI 33.6
[2020-06-16] MEDS ORDERED: PIPERACILLIN/TAZOBACTAM 3.375 GM VIAL IVPB ONE (19:34)
[2020-06-16] MEDS ORDERED: DEXTROSE 5%-WATER - 50 ML IVPB ONE (19:34)
[2020-06-16] MEDS: PIPERACILLIN/TAZOB 3.375 GM 3.375 GM in DEXTROSE 5%-WATER - 50 ML IVPB SCH (19:36)
[2020-06-16] MEDS: LACTATED RINGERS SOLUTION 1,000 ML/1,000 ML INFUS.BAG IV SCH (19:39)
[2020-06-16] MEDS: HEPARIN NA (PORCINE) 5,000 UNITS/ML 1ML VIAL SQ SCH (21:30)
[2020-06-17] MEDS ORDERED: DEXTROSE 5%-WATER - 50 ML IVPB ONE ×2 (00:48→18:46)
[2020-06-17] MEDS ORDERED: PIPERACILLIN/TAZOBACTAM 3.375 GM VIAL IVPB ONE ×2 (00:48→18:45)
[2020-06-17] MEDS: PIPERACILLIN/TAZOB 3.375 GM 3.375 GM in DEXTROSE 5%-WATER - 50 ML IVPB SCH ×2 (01:06→19:01)
[2020-06-17] MEDS: ONDANSETRON 4 MG/2 ML VIAL IVPUSH PRN ×2 (01:29→12:06)
[2020-06-17] MEDS: LACTATED RINGERS SOLUTION 1,000 ML/1,000 ML INFUS.BAG IV SCH ×3 (01:29→19:12)
[2020-06-17] MEDS: HEPARIN NA (PORCINE) 5,000 UNITS/ML 1ML VIAL SQ SCH ×3 (06:00→22:05)
--- NOTE | 2020-06-17 08:13 | PN ---
Progress Note (short form) - Note Progress Note: GENERAL SURGERY POD #1 s/p Cody's Procedure Alert. Supine in bed. Hasn't gotten OOB yet. Pain control via LITIGATION CLAIM REPRESENTATIVE effective. Despite incisional pain, she said her belly feels better. NGT on LWCS with no output in canister. Denies n/v/f/c, CP, palpitations, SOB or FERGUSON. Last Vital Signs Temp Pulse Resp BP Pulse Ox 99.0 F 78 18 123/72 98 06/17/20 06:00 06/17/20 06:00 06/17/20 06:00 06/17/20 06:00 06/17/20 06:00 CBC, BMP 06/16/20 06:05 06/16/20 06:00 Output Since Surgery 06/17/20 06:00 RLQ RAMON (serosang) 20 Cornelius (clear) 600 GEN: nad Pulm: Unlabored respirations on room air COR: RRR ABD: Surgical dressing c/d/i. Midline incision open superior & inferiorly. [place] for umbilical approximation only. Deep fascia intact. LLQ ostomy pink/viable but not producing yet. : cornelius to gravity LE: SCDs bilat. Soft/supple/NT, warm. A/P: POD #1 s/p Cody's Procedure NPO IVF GI PPx DVT PPx NGT dc'd on rounds Monitor record I/Os RAMON output Incentive spirometer OOB to chair Cornelius scheduled to be dc'd 06/18. LITIGATION CLAIM REPRESENTATIVE for pain management VNS for home wound management Above plan discussed with Dr. Church and agrees. Problem List - Problems (1) Perforation of sigmoid colon due to diverticulitis Code(s): K57.20 - DVTRCLI OF LG INT W PERFORATION AND ABSCESS W/O BLEEDING (2) Obesity (BMI 30-39.9) Code(s): E66.9 - OBESITY, UNSPECIFIED (3) Asthma Code(s): J45.909 - UNSPECIFIED ASTHMA, UNCOMPLICATED (4) Leukocytosis Code(s): D72.829 - ELEVATED WHITE BLOOD CELL COUNT, UNSPECIFIED (5) Abdominal pain Code(s): R10.9 - UNSPECIFIED ABDOMINAL PAIN Qualifiers: Abdominal location: generalized Qualified Code(s): R10.84 - Generalized abdominal pain (6) Spondylolisthesis at L5-S1 level Code(s): M43.17 - SPONDYLOLISTHESIS, LUMBOSACRAL REGION
[2020-06-17 08:50] LABS: HEMATOCRIT 31.7 % (32.4-45.2); MCH 24.9 pg (25.7-33.7); MCHC 31.6 g/dl (32.0-36.0); MEAN PLT VOLUME 7.5 fl (7.5-11.1); PLATELET COUNT 423 K/MM3 (134-434); RBC 4.01 M/mm3 (3.60-5.2); RDW 16.4 % (11.6-15.6); WHITE BLOOD COUNT 12.3 K/mm3 (4.0-10.0)
[2020-06-17 09:00] LABS: BLOOD UREA NITROGEN 7.1 mg/dL (7-18); CALCIUM 8.4 mg/dL (8.5-10.1); CREATININE 0.5 mg/dL (0.55-1.3); POTASSIUM 4.2 mmol/L (3.5-5.1)
[2020-06-17] MEDS: PANTOPRAZOLE SODIUM 40 MG VIAL IVPUSH SCH (09:52)
[2020-06-17] MEDS ORDERED: BENZOCAINE/MENTH/CETYLPYRD CL 1 EACH LOZENGE MM PRN (10:06)
[2020-06-17] MEDS ORDERED: LACTATED RINGERS SOLUTION 1,000 ML/1,000 ML INFUS.BAG IV ONE (11:55)
[2020-06-17] MEDS ORDERED: PCA PUMP NR ONE ×2 (11:55→16:39)
--- NOTE | 2020-06-17 12:35 | PN ---
Progress Note, Physician - Current Medication List Current Medications: Active Medications Albuterol Sulfate (Ventolin Hfa Inhaler -) 2 puff IH Q4H PRN PRN Reason: SHORT OF BREATH/WHEEZING Benzocaine/Menthol (Cepacol Lozenge -) 1 each MM PRN PRN PRN Reason: SORE THROAT Last Admin: 06/17/20 12:06 Dose: 1 each Documented by: Fentanyl (Sublimaze Injection -) 25 mcg IVPUSH Q5M PRN PRN Reason: PAIN-PACU ORDER X 4 DOSES ONLY Heparin Sodium (Porcine) (Heparin -) 5,000 unit SQ TID CHRISTINE Last Admin: 06/17/20 06:00 Dose: 5,000 unit Documented by: Hydromorphone HCl (Hydromorphone 10 Mg/50 Ml-Ns) 10 mg MAMMOGRAPHY TECHNOLOGIST MAMMOGRAPHY TECHNOLOGIST CHRISTINE; Protocol Stop: 06/23/20 15:54 Metronidazole (Flagyl 500mg Premixed Ivpb -) 500 mg in 100 mls @ 100 mls/hr IVPB Q8H-IV CHRISTINE Last Admin: 06/17/20 09:54 Dose: 100 mls/hr Documented by: Piperacillin Sod/Tazobactam (Sod 3.375 gm/ Dextrose) 50 mls @ 100 mls/hr IVPB Q8H-IV CHRISTINE; Protocol Lactated Ringer's (Lactated Ringers Solution) 1,000 ml in 1,000 mls @ 125 mls/hr IV ASDIR CHRISTINE Last Admin: 06/17/20 04:05 Dose: 125 mls/hr Documented by: Lactated Ringer's (Lactated Ringers Solution) 1,000 ml in 1,000 mls @ 175 mls/hr IV ONCE ONE Stop: 06/17/20 17:37 Last Admin: 06/17/20 12:17 Dose: 175 mls/hr Documented by: Pantoprazole Sodium (Protonix Iv) 40 mg IVPUSH DAILY CHRISTINE Last Admin: 06/17/20 09:52 Dose: 40 mg Documented by: - Objective Vital Signs: Vital Signs Temperature 99.4 F 06/17/20 09:11 Pulse Rate 94 H 06/17/20 09:12 Respiratory Rate 18 06/17/20 09:12 Blood Pressure 134/77 06/17/20 09:12 O2 Sat by Pulse Oximetry (%) 99 06/17/20 09:12 Labs: CBC, BMP 06/17/20 07:37 06/17/20 07:37 INR, PTT INR 1.39 (0.83-1.09) H 06/15/20 10:45
--- NOTE | 2020-06-17 12:43 | PN ---
Progress Note (short form) - Note Progress Note: Anesthesia Post op Pt seen and examined S:Alert and awake mild pain O: Vital Signs Temperature 99.4 F 06/17/20 09:11 Pulse Rate 94 H 06/17/20 09:12 Respiratory Rate 18 06/17/20 12:36 Blood Pressure 134/77 06/17/20 09:12 O2 Sat by Pulse Oximetry (%) 99 06/17/20 12:36 CBC, BMP 06/17/20 07:37 06/17/20 07:37 A/P: Current Active Problems Abscess of sigmoid colon due to diverticulitis (Acute) Asthma (Acute) Leukocytosis (Acute) Obesity (BMI 30-39.9) (Acute) Perforation of sigmoid colon due to diverticulitis (Acute) s/p vasquez's Procedure Doing well post op Continue BURLAP BAG SEWER Continue current care Tomasz Hodge MD
--- NOTE | 2020-06-17 13:18 | PN ---
Progress Note, Physician History of Present Illness: pt s/p hartmans procedure pain drainage tube in place - Current Medication List Current Medications: Active Medications Albuterol Sulfate (Ventolin Hfa Inhaler -) 2 puff IH Q4H PRN PRN Reason: SHORT OF BREATH/WHEEZING Benzocaine/Menthol (Cepacol Lozenge -) 1 each MM PRN PRN PRN Reason: SORE THROAT Last Admin: 06/17/20 12:06 Dose: 1 each Documented by: Fentanyl (Sublimaze Injection -) 25 mcg IVPUSH Q5M PRN PRN Reason: PAIN-PACU ORDER X 4 DOSES ONLY Heparin Sodium (Porcine) (Heparin -) 5,000 unit SQ TID CHRISTINE Last Admin: 06/17/20 06:00 Dose: 5,000 unit Documented by: Hydromorphone HCl (Hydromorphone 10 Mg/50 Ml-Ns) 10 mg PLASTICS FABRICATOR PLASTICS FABRICATOR CHRISTINE; Protocol Stop: 06/23/20 15:54 Metronidazole (Flagyl 500mg Premixed Ivpb -) 500 mg in 100 mls @ 100 mls/hr IVPB Q8H-IV CHRISTINE Last Admin: 06/17/20 09:54 Dose: 100 mls/hr Documented by: Piperacillin Sod/Tazobactam (Sod 3.375 gm/ Dextrose) 50 mls @ 100 mls/hr IVPB Q8H-IV CHRISTINE; Protocol Lactated Ringer's (Lactated Ringers Solution) 1,000 ml in 1,000 mls @ 125 mls/hr IV ASDIR CHRISTINE Last Admin: 06/17/20 04:05 Dose: 125 mls/hr Documented by: Lactated Ringer's (Lactated Ringers Solution) 1,000 ml in 1,000 mls @ 175 mls/hr IV ONCE ONE Stop: 06/17/20 17:37 Last Admin: 06/17/20 12:17 Dose: 175 mls/hr Documented by: Pantoprazole Sodium (Protonix Iv) 40 mg IVPUSH DAILY CHRISTINE Last Admin: 06/17/20 09:52 Dose: 40 mg Documented by: - Objective Vital Signs: Vital Signs Temperature 99.4 F 06/17/20 09:11 Pulse Rate 94 H 06/17/20 09:12 Respiratory Rate 18 06/17/20 12:36 Blood Pressure 134/77 06/17/20 09:12 O2 Sat by Pulse Oximetry (%) 99 06/17/20 12:36 Constitutional: Yes: Calm, Mild Distress Cardiovascular: Yes: S1, S2 Respiratory: Yes: Regular, CTA Bilaterally Gastrointestinal: Yes: Soft, Tenderness, Other (absent bowel sounds) Musculoskeletal: Yes: WNL Extremities: Yes: WNL Neurological: Yes: Alert, Oriented Psychiatric: Yes: Alert, Oriented Labs: CBC, BMP 06/17/20 07:37 06/17/20 07:37 INR, PTT INR 1.39 (0.83-1.09) H 06/15/20 10:45 Assessment/Plan Abscess of sigmoid colon due to diverticulitis (Acute) Asthma (Acute) Leukocytosis (Acute) Obesity (BMI 30-39.9) (Acute) Perforation of sigmoid colon due to diverticulitis (Acute) leukocytosis plan continue abx npo as per surgery monitor wbc
--- NOTE | 2020-06-17 15:17 | PN ---
Physical Exam: SUBJECTIVE: Patient seen and examined today in no acute distress. POD 1 following Hartmanns procedure. Ptn endorses abdominal pain, however denies any F/C, GORDILLO, changes in vision, CP, SoB, N/V, or changes in urinary habits. OBJECTIVE: Vital Signs Period Temp Pulse Resp BP Sys/Wood Pulse Ox Last 24 Hr 97.8 F-99.6 F 76-99 16-20 113-134/61-82 95-99 GENERAL: The patient is awake, alert, and fully oriented, in no acute distress. HEAD: Normal with no signs of trauma. EYES: PERRL, extraocular movements intact, sclera anicteric, conjunctiva clear. No ptosis. ENT: Ears normal, nares patent, oropharynx clear without exudates, moist mucous membranes. NECK: Trachea midline, full range of motion, supple. LUNGS: Breath sounds equal, clear to auscultation bilaterally, no wheezes, no crackles, no accessory muscle use. HEART: Regular rate and rhythm, S1, S2 without murmur, rub or gallop. ABDOMEN: s/p ex-lap, midline dressing left intact. RAMON draining minimal serosanguinous fluid. Abdomen tender to palpation, soft, non-distended. Hypoactive bowel sounds. EXTREMITIES: 2+ pulses, warm, well-perfused, no edema. NEUROLOGICAL: Normal speech, gait not observed. PSYCH: Normal mood, normal affect. SKIN: Warm, dry, normal turgor, no rashes or lesions noted Laboratory Results - last 24 hr CBC, BMP 06/17/20 07:37 06/17/20 07:37 Active Medications Generic Name Dose Route Start Last Admin Trade Name Freq PRN Reason Stop Dose Admin Albuterol Sulfate 2 puff 06/16/20 16:20 Ventolin Hfa Inhaler - IH Q4H PRN SHORT OF BREATH/WHEEZING Benzocaine/Menthol 1 each 06/17/20 10:06 06/17/20 12:06 Cepacol Lozenge - MM 1 each PRN PRN Administration SORE THROAT Fentanyl 25 mcg 06/16/20 16:20 Sublimaze Injection - IVPUSH Q5M PRN PAIN-PACU ORDER X 4 DOSES ONLY Heparin Sodium (Porcine) 5,000 unit 06/16/20 22:00 06/17/20 14:18 Heparin - SQ 5,000 unit TID CHRISTINE Administration Hydromorphone HCl 10 mg 06/16/20 16:20 Hydromorphone 10 Mg/50 Ml-Ns MUSIC LEADER 06/23/20 15:54 MUSIC LEADER CHRISTINE Protocol Metronidazole 500 mg in 100 mls @ 100 mls/hr 06/16/20 18:00 06/17/20 09:54 Flagyl 500mg Premixed Ivpb - IVPB 100 mls/hr Q8H-IV CHRISTINE Administration Piperacillin Sod/Tazobactam 50 mls @ 100 mls/hr 06/17/20 10:00 Sod 3.375 gm/ Dextrose IVPB Q8H-IV CHRISTINE Protocol Lactated Ringer's 1,000 ml in 1,000 mls @ 125 mls/hr 06/16/20 18:15 06/17/20 04:05 Lactated Ringers Solution IV 125 mls/hr ASDIR CHRISTINE Administration Lactated Ringer's 1,000 ml in 1,000 mls @ 175 mls/hr 06/17/20 11:55 06/17/20 12:17 Lactated Ringers Solution IV 06/17/20 17:37 175 mls/hr ONCE ONE Administration Pantoprazole Sodium 40 mg 06/17/20 10:00 06/17/20 09:52 Protonix Iv IVPUSH 40 mg DAILY CHRISTINE Administration ASSESSMENT/PLAN: 54 yo F w/ PMHx of acute sigmoid diverticulitis (11/2018), asthma, obesity, and herniated disc (L4-L5 Dr. Bolton), presents with left lower quadrant abdominal pain. Admitted for recurrent diverticulitis w/ associated localized pneumoperitoneum within the adjacent mesentery. Additional 1.3 x 1.3 cm intramural abscess noted in sigmoid wall on imaging. SEPSIS 2/2 ACUTE SIGMOID DIVERTICULTIS W/ CONTAINED PERFORATION -POD 1: Cody procedure -Afebrile, WBC trending down -Per Gen Surg: -NPO -OOB to chair -Incentive Spirometer -Cornelius scheduled to be discontinued on 06/18. -MUSIC LEADER for pain management (Hydromorphone) -VNS for home wound management -Per ID: -Zosyn 3.375 Q8 Day 3 -Per Primary -Flagyl 500mg Q8 Day 2 -1L LR @175 2/2 concentrated urine in cornelius bag --> Resume LR per surgery @ 125 after -FU Blood Cx -FU Abdominal Cx -Urine Cx: Normal Allisno HISTORY OF ASTHMA -Satting at 97-100% on RA -No wheezing on auscultation -c/w Albuterol 2puffs Q4 PRN FEN -NS @ 125 (following completion of 1L at 175) -Lytes -NPO --> advance diet as per surgery recs PPx -DVT: Heparin 5000 TID -GI: Protonix 40mg IV qdaily DISPO -Continue to monitor on medical/surgical floors Visit type - Emergency Visit Emergency Visit: No - New Patient This patient is new to me today: No - Critical Care Critical Care patient: No - Discharge Referral Referred to [facility] Med [facility] No ATTENDING PHYSICIAN STATEMENT I saw and evaluated the patient. I reviewed the resident's note and discussed the case with the resident. I agree with the resident's findings and plan as documented. SUBJECTIVE: OBJECTIVE: ASSESSMENT AND PLAN:
[2020-06-17] MEDS: HYDROmorphone *PCA* 10MG/50ML DISP.SYRIN PCA SCH (15:42)
--- NOTE | 2020-06-17 15:50 | PN ---
Teaching Attending Note Name of Resident: Ever Hathaway ATTENDING PHYSICIAN STATEMENT I saw and evaluated the patient. I reviewed the resident's note and discussed the case with the resident. I agree with the resident's findings and plan as documented. SUBJECTIVE: Patient is feeling better with nAD, less pain, on IVF OBJECTIVE: Vital Signs Temperature 99.6 F 06/17/20 13:45 Pulse Rate 76 06/17/20 15:42 Respiratory Rate 18 06/17/20 15:42 Blood Pressure 120/60 06/17/20 15:42 O2 Sat by Pulse Oximetry (%) 99 06/17/20 15:42 PE:per resident's note + Josiah drain +LLQ ostomy pink/viable CBCD WBC 12.3 K/mm3 (4.0-10.0) H 06/17/20 07:37 RBC 4.01 M/mm3 (3.60-5.2) 06/17/20 07:37 Hgb 10.0 GM/dL (10.7-15.3) L 06/17/20 07:37 Hct 31.7 % (32.4-45.2) L 06/17/20 07:37 MCV 79.0 fl (80-96) L 06/17/20 07:37 MCHC 31.6 g/dl (32.0-36.0) L 06/17/20 07:37 RDW 16.4 % (11.6-15.6) H 06/17/20 07:37 Plt Count 423 K/MM3 (134-434) 06/17/20 07:37 MPV 7.5 fl (7.5-11.1) 06/17/20 07:37 CMP Sodium 138 mmol/L (136-145) 06/17/20 07:37 Potassium 4.2 mmol/L (3.5-5.1) 06/17/20 07:37 Chloride 105 mmol/L (98-107) 06/17/20 07:37 Carbon Dioxide 24 mmol/L (21-32) 06/17/20 07:37 Anion Gap 9 MMOL/L (8-16) 06/17/20 07:37 BUN 7.1 mg/dL (7-18) 06/17/20 07:37 Creatinine 0.5 mg/dL (0.55-1.3) L 06/17/20 07:37 Random Glucose 82 mg/dL (74-106) 06/17/20 07:37 Calcium 8.4 mg/dL (8.5-10.1) L 06/17/20 07:37 Total Bilirubin 0.7 mg/dL (0.2-1) 06/16/20 06:00 AST 11 U/L (15-37) L 06/16/20 06:00 ALT 20 U/L (13-61) 06/16/20 06:00 Alkaline Phosphatase 62 U/L (45-117) 06/16/20 06:00 Total Protein 6.1 g/dl (6.4-8.2) L 06/16/20 06:00 Albumin 2.8 g/dl (3.4-5.0) L 06/16/20 06:00 CARDIAC ENZYMES Creatine Kinase 367 U/L (26-192) H 06/15/20 10:45 Troponin I < 0.02 ng/ml (0.00-0.05) 06/15/20 10:45 Current Medications Generic Name Dose Route Start Last Admin Trade Name Freq PRN Reason Stop Dose Admin Albuterol Sulfate 2 puff 06/16/20 16:20 Ventolin Hfa Inhaler - IH Q4H PRN SHORT OF BREATH/WHEEZING Benzocaine/Menthol 1 each 06/17/20 10:06 06/17/20 12:06 Cepacol Lozenge - MM 1 each PRN PRN Administration SORE THROAT Fentanyl 25 mcg 06/16/20 16:20 Sublimaze Injection - IVPUSH Q5M PRN PAIN-PACU ORDER X 4 DOSES ONLY Heparin Sodium (Porcine) 5,000 unit 06/16/20 22:00 06/17/20 14:18 Heparin - SQ 5,000 unit TID CHRISTINE Administration Hydromorphone HCl 10 mg 06/16/20 16:20 06/17/20 15:42 Hydromorphone 10 Mg/50 Ml-Ns MICROWAVE REMOTE SENSING SCIENTIST 06/23/20 15:54 10 mg MICROWAVE REMOTE SENSING SCIENTIST CHRISTINE Administration Protocol Metronidazole 500 mg in 100 mls @ 100 mls/hr 06/16/20 18:00 06/17/20 09:54 Flagyl 500mg Premixed Ivpb - IVPB 100 mls/hr Q8H-IV CHRISTINE Administration Piperacillin Sod/Tazobactam 50 mls @ 100 mls/hr 06/17/20 10:00 Sod 3.375 gm/ Dextrose IVPB Q8H-IV CHRISTINE Protocol Lactated Ringer's 1,000 ml in 1,000 mls @ 125 mls/hr 06/16/20 18:15 06/17/20 04:05 Lactated Ringers Solution IV 125 mls/hr ASDIR CHRISTINE Administration Lactated Ringer's 1,000 ml in 1,000 mls @ 175 mls/hr 06/17/20 11:55 06/17/20 12:17 Lactated Ringers Solution IV 06/17/20 17:37 175 mls/hr ONCE ONE Administration Pantoprazole Sodium 40 mg 06/17/20 10:00 06/17/20 09:52 Protonix Iv IVPUSH 40 mg DAILY CHRISTINE Administration Home Medications Medication Instructions Recorded NK [No Known Home Medication] 06/15/20 CT Abd/Pelv: Acute sigmoid diverticulitis with small localized pneumoperitoneum within the adjacent mesentery. Probable 1.3 x 1.3 cm intramural abscess within the inflamed sigmoid colon wall. There is no definite paracolic abscess. Trace pelvic free fluid. Mild thickening of the urinary bladder dome adjacent to the area of sigmoid diverticulitis probably on a reactive basis. ASSESSMENT AND PLAN: This patient is a 54yof with PMhx of sigmoid diverticulitis (11/2018), asthma, obesity, and herniated disc (L4-L5 Dr. Bolton), presents with left lower quadrant abdominal pain. and was found to have acute recurrent diverticulitis with localized pneumoperitoneum within the adjacent mesentery. #Sepsis due to acute sigmoid diverticulitis with contained perforation. presented with fever with localized pneumoperitoneum s/p Laparotomy, colostomy POD#1 , NPO, pain control , Zosyn 3.375 Q8 and added Iv flagyl continue, follow blood cx and bx result #Hx of asthma: duoneb prn DVT: SCDs, no chemical AC today , will start in am if its ok with the surgeon GI: Protonix 40mg npo will continue to monitor
[2020-06-18] MEDS ORDERED: ONDANSETRON 4 MG/2 ML VIAL IVPUSH ONE (00:46)
[2020-06-18] MEDS ORDERED: DEXTROSE 5%-WATER - 50 ML IVPB ONE ×3 (02:47→17:04)
[2020-06-18] MEDS ORDERED: PIPERACILLIN/TAZOBACTAM 3.375 GM VIAL IVPB ONE ×3 (02:47→17:04)
[2020-06-18] MEDS: PIPERACILLIN/TAZOB 3.375 GM 3.375 GM in DEXTROSE 5%-WATER - 50 ML IVPB SCH ×3 (02:59→17:12)
[2020-06-18] MEDS: LACTATED RINGERS SOLUTION 1,000 ML/1,000 ML INFUS.BAG IV SCH ×3 (04:28→18:18)
[2020-06-18] MEDS: HEPARIN NA (PORCINE) 5,000 UNITS/ML 1ML VIAL SQ SCH ×3 (07:14→22:07)
[2020-06-18 08:37] LABS: BASO % 0.9 % (0-2.0); EOS % 0.9 % (0-4.5); HEMATOCRIT 28.9 % (32.4-45.2); HEMOGLOBIN 9.3 GM/dL (10.7-15.3); LYMPH % 12.4 % (8-40); MCH 25.6 pg (25.7-33.7); MCHC 32.2 g/dl (32.0-36.0); MEAN CELL VOLUME 79.3 fl (80-96); MEAN PLT VOLUME 7.4 fl (7.5-11.1); MONO % 11.6 % (3.8-10.2); NEUT % 74.2 % (42.8-82.8); PLATELET COUNT 382 K/MM3 (134-434); RBC 3.64 M/mm3 (3.60-5.2); RDW 16.4 % (11.6-15.6); WHITE BLOOD COUNT 8.7 K/mm3 (4.0-10.0)
[2020-06-18 08:53] LABS: CREATININE 0.3 mg/dL (0.55-1.3); POTASSIUM 4.3 mmol/L (3.5-5.1)
[2020-06-18] MEDS: PANTOPRAZOLE SODIUM 40 MG VIAL IVPUSH SCH (09:34)
--- NOTE | 2020-06-18 09:49 | PN ---
Progress Note (short form) - Note Progress Note: Attending Surgeon POD#2 No c/o VSS AF abdo-soft; incision w/open skin wound and fascia intact; partial aidan in place; ostomy viable. extrems-warm; no calf tenderness WBC-nl RAMON-minimal serous output UO-good IMP: doing well post op PLAN: May have ice chips/OOB/IVF/IVAB's/d/c cornelius/continue RAMON. Vasu Church MD FACS
--- NOTE | 2020-06-18 13:38 | PN ---
Progress Note, Physician History of Present Illness: Pt states she feels well, has some abd pain but in no acute distress. Tmax 99.2F. No other complaints. - Current Medication List Current Medications: Active Medications Albuterol Sulfate (Ventolin Hfa Inhaler -) 2 puff IH Q4H PRN PRN Reason: SHORT OF BREATH/WHEEZING Benzocaine/Menthol (Cepacol Lozenge -) 1 each MM PRN PRN PRN Reason: SORE THROAT Last Admin: 06/17/20 12:06 Dose: 1 each Documented by: Fentanyl (Sublimaze Injection -) 25 mcg IVPUSH Q5M PRN PRN Reason: PAIN-PACU ORDER X 4 DOSES ONLY Heparin Sodium (Porcine) (Heparin -) 5,000 unit SQ TID [facility] Last Admin: 06/18/20 07:14 Dose: 5,000 unit Documented by: Hydromorphone HCl (Hydromorphone 10 Mg/50 Ml-Ns) 10 mg AIRCRAFT ELECTRONICS TECHNICAL OFFICER AIRCRAFT ELECTRONICS TECHNICAL OFFICER CHRISTINE; Protocol Stop: 06/23/20 15:54 Last Admin: 06/17/20 15:42 Dose: 10 mg Documented by: Metronidazole (Flagyl 500mg Premixed Ivpb -) 500 mg in 100 mls @ 100 mls/hr IVPB Q8H-IV CHRISTINE Last Admin: 06/18/20 09:35 Dose: 100 mls/hr Documented by: Piperacillin Sod/Tazobactam (Sod 3.375 gm/ Dextrose) 50 mls @ 100 mls/hr IVPB Q8H-IV CHRISTINE; Protocol Last Admin: 06/18/20 09:34 Dose: 100 mls/hr Documented by: Lactated Ringer's (Lactated Ringers Solution) 1,000 ml in 1,000 mls @ 75 mls/hr IV ASDIR CHRISTINE Pantoprazole Sodium (Protonix Iv) 40 mg IVPUSH DAILY [facility] Last Admin: 06/18/20 09:34 Dose: 40 mg Documented by: - Objective Vital Signs: Vital Signs Temperature 98.2 F 06/18/20 06:00 Pulse Rate 80 06/18/20 06:00 Respiratory Rate 18 06/18/20 06:00 Blood Pressure 124/81 06/18/20 06:00 O2 Sat by Pulse Oximetry (%) 99 06/18/20 06:00 Constitutional: Yes: No Distress, Calm Cardiovascular: Yes: Regular Rate and Rhythm Gastrointestinal: Yes: Soft, Abdomen, Obese, Other (+ostomy) Genitourinary: Yes: WNL Integumentary: Yes: WNL Wound/Incision: Yes: Other (+ ostomy, surgical wound site clean/without purulence or surrounding erythema) Neurological: Yes: Alert Labs: CBC, BMP 06/18/20 07:30 06/18/20 07:30 INR, PTT INR 1.39 (0.83-1.09) H 06/15/20 10:45 Laboratory Last Values WBC 8.7 K/mm3 (4.0-10.0) 06/18/20 07:30 RBC 3.64 M/mm3 (3.60-5.2) 06/18/20 07:30 Hgb 9.3 GM/dL (10.7-15.3) L 06/18/20 07:30 Hct 28.9 % (32.4-45.2) L 06/18/20 07:30 MCV 79.3 fl (80-96) L 06/18/20 07:30 MCH 25.6 pg (25.7-33.7) L 06/18/20 07:30 MCHC 32.2 g/dl (32.0-36.0) 06/18/20 07:30 RDW 16.4 % (11.6-15.6) H 06/18/20 07:30 Plt Count 382 K/MM3 (134-434) 06/18/20 07:30 MPV 7.4 fl (7.5-11.1) L 06/18/20 07:30 Absolute Neuts (auto) 6.5 K/mm3 (1.5-8.0) 06/18/20 07:30 Neutrophils % 74.2 % (42.8-82.8) 06/18/20 07:30 Lymphocytes % 12.4 % (8-40) D 06/18/20 07:30 Monocytes % 11.6 % (3.8-10.2) H 06/18/20 07:30 Eosinophils % 0.9 % (0-4.5) D 06/18/20 07:30 Basophils % 0.9 % (0-2.0) 06/18/20 07:30 Nucleated RBC % 0 % (0-0) 06/18/20 07:30 PT with INR 16.50 SEC (9.7-13.0) H 06/15/20 10:45 INR 1.39 (0.83-1.09) H 06/15/20 10:45 PTT (Actin FS) 34.4 SECONDS (25.2-36.5) 06/15/20 10:45 Sodium 142 mmol/L (136-145) 06/18/20 07:30 Potassium 4.3 mmol/L (3.5-5.1) 06/18/20 07:30 Chloride 107 mmol/L (98-107) 06/18/20 07:30 Carbon Dioxide 29 mmol/L (21-32) 06/18/20 07:30 Anion Gap 6 MMOL/L (8-16) L 06/18/20 07:30 BUN 7.0 mg/dL (7-18) 06/18/20 07:30 Creatinine 0.3 mg/dL (0.55-1.3) L 06/18/20 07:30 Est GFR (CKD-EPI)AfAm 149.39 06/18/20 07:30 Est GFR (CKD-EPI)NonAf 128.90 06/18/20 07:30 Random Glucose 92 mg/dL (74-106) 06/18/20 07:30 Calcium 8.0 mg/dL (8.5-10.1) L 06/18/20 07:30 Phosphorus 3.1 mg/dL (2.5-4.9) 06/16/20 06:00 Magnesium 2.1 mg/dL (1.8-2.4) 06/16/20 06:00 Total Bilirubin 0.7 mg/dL (0.2-1) 06/16/20 06:00 AST 11 U/L (15-37) L 06/16/20 06:00 ALT 20 U/L (13-61) 06/16/20 06:00 Alkaline Phosphatase 62 U/L (45-117) 06/16/20 06:00 Creatine Kinase 367 U/L (26-192) H 06/15/20 10:45 Creatine Kinase Index 0.4 % (0.0-5.0) 06/15/20 10:45 CK-MB (CK-2) 1.7 ng/mL (0.5-3.6) 06/15/20 10:45 Troponin I < 0.02 ng/ml (0.00-0.05) 06/15/20 10:45 Total Protein 6.1 g/dl (6.4-8.2) L 06/16/20 06:00 Albumin 2.8 g/dl (3.4-5.0) L 06/16/20 06:00 Lipase 105 U/L (73-393) 06/15/20 10:45 Urine Color Yellow 06/15/20 14:51 Urine Appearance Clear 06/15/20 14:51 Urine pH 5.0 (5.0-8.0) 06/15/20 14:51 Ur Specific [place] >= 1.099 (1.010-1.035) H 06/15/20 14:51 Urine Protein Trace (NEGATIVE) 06/15/20 14:51 Urine Glucose (UA) Negative (NEGATIVE) 06/15/20 14:51 Urine Ketones 1+ (NEGATIVE) H 06/15/20 14:51 Urine Blood Negative (NEGATIVE) 06/15/20 14:51 Urine Nitrite Negative (NEGATIVE) 06/15/20 14:51 Urine Bilirubin Negative (NEGATIVE) 06/15/20 14:51 Urine Urobilinogen 0.2 mg/dL (0.2-1.0) 06/15/20 14:51 Ur Leukocyte Esterase Negative (NEGATIVE) 06/15/20 14:51 Urine WBC (Auto) 7 /uL (0-25.8) 06/15/20 14:51 Urine RBC (Auto) 12 /uL (0-23.9) 06/15/20 14:51 Urine Casts (Auto) 1 /uL (0-3.1) 06/15/20 14:51 U Epithel Cells (Auto) 10 /uL (0-25.1) 06/15/20 14:51 Urine Bacteria (Auto) 213 /uL (0-1359) 06/15/20 14:51 COVID-19 (BATOOL) Not detected (Not Detected) 06/15/20 11:30 SARS-CoV-2 (PCR) Negative (Negative) 06/16/20 09:00 Blood Type O POSITIVE 06/16/20 09:30 Antibody Screen Negative 06/16/20 09:30 Microbiology 06/15/20 12:20 Blood - Peripheral Venous Blood Culture - Preliminary NO GROWTH OBTAINED AFTER 48 HOURS, INCUBATION TO CONTINUE FOR 3 DAYS. 06/16/20 13:50 Abdomen Gram Stain - Final 06/16/20 13:50 Abdomen Wound Culture - Preliminary NO GROWTH OBTAINED AFTER 24 HOURS INCUBATION, REINCUBATED. 06/16/20 09:30 Blood - Peripheral Venous Blood Culture - Preliminary NO GROWTH OBTAINED AFTER 48 HOURS, INCUBATION TO CONTINUE FOR 3 DAYS. 06/15/20 14:51 Urine - Urine Clean Catch Urine Culture - Final Normal Urogenital Allison Problem List - Problems (1) Abscess of sigmoid colon due to diverticulitis Code(s): K57.20 - DVTRCLI OF LG INT W PERFORATION AND ABSCESS W/O BLEEDING (2) Asthma Code(s): J45.909 - UNSPECIFIED ASTHMA, UNCOMPLICATED (3) Leukocytosis Code(s): D72.829 - ELEVATED WHITE BLOOD CELL COUNT, UNSPECIFIED (4) Obesity (BMI 30-39.9) Code(s): E66.9 - OBESITY, UNSPECIFIED Assessment/Plan Acute diverticulitis w/ perforation and abscess s/p Hartmans procedure/drain Asthma Obesity -- pt doing well, Tmax 99.2F, wbc trended down to normal -- continue antibiotics -- Surgery following
[2020-06-18] MEDS: ACETAMINOPHEN 1000 MG/100 ML VIAL (NON FORMULARY) IVPB PRN (15:54)
[2020-06-18] MEDS ORDERED: PT OWN MED DRAWER 7, Y5N ONE (17:04)
--- NOTE | 2020-06-18 17:29 | PN ---
Progress Note (short form) - Note Progress Note: Patient is feeling better, no fever or chills, no passing gas yet Vital Signs Temperature 99.5 F 06/18/20 14:30 Pulse Rate 90 06/18/20 15:00 Respiratory Rate 18 06/18/20 15:00 Blood Pressure 117/63 06/18/20 15:00 O2 Sat by Pulse Oximetry (%) 95 06/18/20 15:00 GENERAL: The patient is awake, alert, and fully oriented, in no acute distress. HEAD: Normal with no signs of trauma. EYES: PERRL, extraocular movements intact, sclera anicteric, conjunctiva clear. ENT: Ears normal, oropharynx clear without exudates, moist mucous membranes. NECK: Trachea midline, full range of motion, supple. LUNGS: Breath sounds equal, clear to auscultation bilaterally, no wheezes, no crackles, no accessory muscle use. HEART: Regular rate and rhythm, S1, S2 without murmur, rub or gallop. ABDOMEN: Soft, nontender, nondistended, + ostomy , + fluid brownish color in the ostomy bag EXTREMITIES: 2+ pulses, warm, well-perfused, no edema. NEUROLOGICAL: Cranial nerves II through XII grossly intact. Normal speech, gait not observed. PSYCH: Normal mood, normal affect. SKIN: Warm, dry, normal turgor, no rashes or lesions noted CBCD WBC 8.7 K/mm3 (4.0-10.0) 06/18/20 07:30 RBC 3.64 M/mm3 (3.60-5.2) 06/18/20 07:30 Hgb 9.3 GM/dL (10.7-15.3) L 06/18/20 07:30 Hct 28.9 % (32.4-45.2) L 06/18/20 07:30 MCV 79.3 fl (80-96) L 06/18/20 07:30 MCHC 32.2 g/dl (32.0-36.0) 06/18/20 07:30 RDW 16.4 % (11.6-15.6) H 06/18/20 07:30 Plt Count 382 K/MM3 (134-434) 06/18/20 07:30 MPV 7.4 fl (7.5-11.1) L 06/18/20 07:30 CMP Sodium 142 mmol/L (136-145) 06/18/20 07:30 Potassium 4.3 mmol/L (3.5-5.1) 06/18/20 07:30 Chloride 107 mmol/L (98-107) 06/18/20 07:30 Carbon Dioxide 29 mmol/L (21-32) 06/18/20 07:30 Anion Gap 6 MMOL/L (8-16) L 06/18/20 07:30 BUN 7.0 mg/dL (7-18) 06/18/20 07:30 Creatinine 0.3 mg/dL (0.55-1.3) L 06/18/20 07:30 Random Glucose 92 mg/dL (74-106) 06/18/20 07:30 Calcium 8.0 mg/dL (8.5-10.1) L 06/18/20 07:30 Total Bilirubin 0.7 mg/dL (0.2-1) 06/16/20 06:00 AST 11 U/L (15-37) L 06/16/20 06:00 ALT 20 U/L (13-61) 06/16/20 06:00 Alkaline Phosphatase 62 U/L (45-117) 06/16/20 06:00 Total Protein 6.1 g/dl (6.4-8.2) L 06/16/20 06:00 Albumin 2.8 g/dl (3.4-5.0) L 06/16/20 06:00 CARDIAC ENZYMES Creatine Kinase 367 U/L (26-192) H 06/15/20 10:45 Troponin I < 0.02 ng/ml (0.00-0.05) 06/15/20 10:45 Current Medications Generic Name Dose Route Start Last Admin Trade Name Freq PRN Reason Stop Dose Admin Acetaminophen 1,000 mg 06/18/20 15:27 06/18/20 15:54 Ofirmev Injection - IVPB 06/19/20 15:27 1,000 mg Q6H PRN Administration PAIN LEVEL 1-5 Albuterol Sulfate 2 puff 06/16/20 16:20 Ventolin Hfa Inhaler - IH Q4H PRN SHORT OF BREATH/WHEEZING Benzocaine/Menthol 1 each 06/17/20 10:06 06/17/20 12:06 Cepacol Lozenge - MM 1 each PRN PRN Administration SORE THROAT Fentanyl 25 mcg 06/16/20 16:20 Sublimaze Injection - IVPUSH Q5M PRN PAIN-PACU ORDER X 4 DOSES ONLY Heparin Sodium (Porcine) 5,000 unit 06/16/20 22:00 06/18/20 15:55 Heparin - SQ 5,000 unit TID CHRISTINE Administration Hydromorphone HCl 10 mg 06/16/20 16:20 06/17/20 15:42 Hydromorphone 10 Mg/50 Ml-Ns SPECIAL ED ASSISTANT 06/23/20 15:54 10 mg SPECIAL ED ASSISTANT CHRISTINE Administration Protocol Metronidazole 500 mg in 100 mls @ 100 mls/hr 06/16/20 18:00 06/18/20 17:12 Flagyl 500mg Premixed Ivpb - IVPB 100 mls/hr Q8H-IV CHRISTINE Administration Piperacillin Sod/Tazobactam 50 mls @ 100 mls/hr 06/17/20 18:00 06/18/20 17:12 Sod 3.375 gm/ Dextrose IVPB 100 mls/hr Q8H-IV CHRISITNE Administration Protocol Lactated Ringer's 1,000 ml in 1,000 mls @ 75 mls/hr 06/18/20 09:50 06/18/20 15:21 Lactated Ringers Solution IV Not Given ASDIR CHRISTINE Pantoprazole Sodium 40 mg 06/17/20 10:00 06/18/20 09:34 Protonix Iv IVPUSH 40 mg DAILY CHRISTINE Administration CT Abd/Pelv: Acute sigmoid diverticulitis with small localized pneumoperitoneum within the adjacent mesentery. Probable 1.3 x 1.3 cm intramural abscess within the inflamed sigmoid colon wall. There is no definite paracolic abscess. Trace pelvic free fluid. Mild thickening of the urinary bladder dome adjacent to the area of sigmoid diverticulitis probably on a reactive basis. ASSESSMENT AND PLAN: This patient is a 54yof with PMhx of sigmoid diverticulitis (11/2018), asthma, obesity, and herniated disc (L4-L5 Dr. Bolton), presents with left lower quadrant abdominal pain. and was found to have acute recurrent diverticulitis with localized pneumoperitoneum within the adjacent mesentery. #Sepsis due to acute sigmoid diverticulitis with contained perforation. presented with fever with localized pneumoperitoneum s/p Laparotomy, colostomy POD#2 , NPO, pain control , Zosyn 3.375 Q8 and added Iv flagyl continue, follow blood cx and bx result #Hx of asthma: duoneb prn DVT: SCDs, heparin sq GI: Protonix 40mg continue npo for now will continue to monitor Visit type - Emergency Visit Emergency Visit: Yes ED Registration Date: 06/15/20 Care time: The patient presented to the Emergency Department on the above date and was hospitalized for further evaluation of their emergent condition. - New Patient This patient is new to me today: No - Critical Care Critical Care patient: No - Discharge Referral Referred to [facility] Med P.C.: No
[2020-06-18] MEDS ORDERED: PCA PUMP NR ONE (17:53)
[2020-06-18] MEDS: HYDROmorphone *PCA* 10MG/50ML DISP.SYRIN PCA SCH (18:05)
[2020-06-19] MEDS ORDERED: PIPERACILLIN/TAZOBACTAM 3.375 GM VIAL IVPB ONE ×3 (00:38→17:17)
[2020-06-19] MEDS ORDERED: DEXTROSE 5%-WATER - 50 ML IVPB ONE ×3 (00:39→17:17)
[2020-06-19] MEDS: PIPERACILLIN/TAZOB 3.375 GM 3.375 GM in DEXTROSE 5%-WATER - 50 ML IVPB SCH ×3 (02:00→17:23)
[2020-06-19] MEDS: HEPARIN NA (PORCINE) 5,000 UNITS/ML 1ML VIAL SQ SCH ×3 (06:42→21:18)
--- NOTE | 2020-06-19 09:33 | PN ---
Progress Note (short form) - Note Progress Note: Attending Surgeon POD#3 No c/o; voiding VSS AF abdo-soft; incision w/open skin wound and fascia intact; partial aidan in place; ostomy viable; no output. extrems-warm; no calf tenderness WBC-nl RAMON-minimal serous output Cultures-no growth IMP: doing well post op PLAN: May have ice chips/OOB/IVF/IVAB's/continue RAMON; will advance diet once ostomy functions. Vasu Church MD FACS
[2020-06-19] MEDS: LACTATED RINGERS SOLUTION 1,000 ML/1,000 ML INFUS.BAG IV SCH (09:51)
[2020-06-19] MEDS: PANTOPRAZOLE SODIUM 40 MG VIAL IVPUSH SCH (10:01)
--- NOTE | 2020-06-19 12:30 | PN ---
Physical Exam: SUBJECTIVE: Patient seen and examined. Complains of some abd pain. Currently rated 7/10. Uses GERIATRIC NURSING ASSISTANT pump. Admits to some nausea, no vomiting. No BM or passing flatus as of yet. Tolerating ice chips. OBJECTIVE: Vital Signs Period Temp Pulse Resp BP Sys/Wood Pulse Ox Last 24 Hr 98.3 F-99.7 F 82-91 18-20 116-135/63-86 93-96 GENERAL: The patient is awake, alert, and fully oriented, in no acute distress. HEENT: NCAT, EOMI, PERRL, moist mucus membranes. LUNGS: Breath sounds equal, clear to auscultation bilaterally, no wheezes. HEART: Regular rate and rhythm, S1, S2 without murmur. ABDOMEN: RAMON drain with minimal serosanguinous fluid. Abdomen mildly tender to palpation, soft, non-distended. Hypoactive bowel sounds. EXTREMITIES: warm, well-perfused, no edema. SKIN: Warm, dry Laboratory Last Values WBC 8.7 K/mm3 (4.0-10.0) 06/18/20 07:30 RBC 3.64 M/mm3 (3.60-5.2) 06/18/20 07:30 Hgb 9.3 GM/dL (10.7-15.3) L 06/18/20 07:30 Hct 28.9 % (32.4-45.2) L 06/18/20 07:30 MCV 79.3 fl (80-96) L 06/18/20 07:30 MCH 25.6 pg (25.7-33.7) L 06/18/20 07:30 MCHC 32.2 g/dl (32.0-36.0) 06/18/20 07:30 RDW 16.4 % (11.6-15.6) H 06/18/20 07:30 Plt Count 382 K/MM3 (134-434) 06/18/20 07:30 MPV 7.4 fl (7.5-11.1) L 06/18/20 07:30 Absolute Neuts (auto) 6.5 K/mm3 (1.5-8.0) 06/18/20 07:30 Neutrophils % 74.2 % (42.8-82.8) 06/18/20 07:30 Lymphocytes % 12.4 % (8-40) D 06/18/20 07:30 Monocytes % 11.6 % (3.8-10.2) H 06/18/20 07:30 Eosinophils % 0.9 % (0-4.5) D 06/18/20 07:30 Basophils % 0.9 % (0-2.0) 06/18/20 07:30 Nucleated RBC % 0 % (0-0) 06/18/20 07:30 PT with INR 16.50 SEC (9.7-13.0) H 06/15/20 10:45 INR 1.39 (0.83-1.09) H 06/15/20 10:45 PTT (Actin FS) 34.4 SECONDS (25.2-36.5) 06/15/20 10:45 Sodium 142 mmol/L (136-145) 06/18/20 07:30 Potassium 4.3 mmol/L (3.5-5.1) 06/18/20 07:30 Chloride 107 mmol/L (98-107) 06/18/20 07:30 Carbon Dioxide 29 mmol/L (21-32) 06/18/20 07:30 Anion Gap 6 MMOL/L (8-16) L 06/18/20 07:30 BUN 7.0 mg/dL (7-18) 06/18/20 07:30 Creatinine 0.3 mg/dL (0.55-1.3) L 06/18/20 07:30 Est GFR (CKD-EPI)AfAm 149.39 06/18/20 07:30 Est GFR (CKD-EPI)NonAf 128.90 06/18/20 07:30 Random Glucose 92 mg/dL (74-106) 06/18/20 07:30 Calcium 8.0 mg/dL (8.5-10.1) L 06/18/20 07:30 Phosphorus 3.1 mg/dL (2.5-4.9) 06/16/20 06:00 Magnesium 2.1 mg/dL (1.8-2.4) 06/16/20 06:00 Total Bilirubin 0.7 mg/dL (0.2-1) 06/16/20 06:00 AST 11 U/L (15-37) L 06/16/20 06:00 ALT 20 U/L (13-61) 06/16/20 06:00 Alkaline Phosphatase 62 U/L (45-117) 06/16/20 06:00 Creatine Kinase 367 U/L (26-192) H 06/15/20 10:45 Creatine Kinase Index 0.4 % (0.0-5.0) 06/15/20 10:45 CK-MB (CK-2) 1.7 ng/mL (0.5-3.6) 06/15/20 10:45 Troponin I < 0.02 ng/ml (0.00-0.05) 06/15/20 10:45 Total Protein 6.1 g/dl (6.4-8.2) L 06/16/20 06:00 Albumin 2.8 g/dl (3.4-5.0) L 06/16/20 06:00 Lipase 105 U/L (73-393) 06/15/20 10:45 Urine Color Yellow 06/15/20 14:51 Urine Appearance Clear 06/15/20 14:51 Urine pH 5.0 (5.0-8.0) 06/15/20 14:51 Ur Specific [place] >= 1.099 (1.010-1.035) H 06/15/20 14:51 Urine Protein Trace (NEGATIVE) 06/15/20 14:51 Urine Glucose (UA) Negative (NEGATIVE) 06/15/20 14:51 Urine Ketones 1+ (NEGATIVE) H 06/15/20 14:51 Urine Blood Negative (NEGATIVE) 06/15/20 14:51 Urine Nitrite Negative (NEGATIVE) 06/15/20 14:51 Urine Bilirubin Negative (NEGATIVE) 06/15/20 14:51 Urine Urobilinogen 0.2 mg/dL (0.2-1.0) 06/15/20 14:51 Ur Leukocyte Esterase Negative (NEGATIVE) 06/15/20 14:51 Urine WBC (Auto) 7 /uL (0-25.8) 06/15/20 14:51 Urine RBC (Auto) 12 /uL (0-23.9) 06/15/20 14:51 Urine Casts (Auto) 1 /uL (0-3.1) 06/15/20 14:51 U Epithel Cells (Auto) 10 /uL (0-25.1) 06/15/20 14:51 Urine Bacteria (Auto) 213 /uL (0-1359) 06/15/20 14:51 COVID-19 (BATOOL) Not detected (Not Detected) 06/15/20 11:30 SARS-CoV-2 (PCR) Negative (Negative) 06/16/20 09:00 Blood Type O POSITIVE 06/16/20 09:30 Antibody Screen Negative 06/16/20 09:30 Active Medications Active Medications Albuterol Sulfate (Ventolin Hfa Inhaler -) 2 puff IH Q4H PRN PRN Reason: SHORT OF BREATH/WHEEZING Benzocaine/Menthol (Cepacol Lozenge -) 1 each MM PRN PRN PRN Reason: SORE THROAT Last Admin: 06/17/20 12:06 Dose: 1 each Documented by: Fentanyl (Sublimaze Injection -) 25 mcg IVPUSH Q5M PRN PRN Reason: PAIN-PACU ORDER X 4 DOSES ONLY Heparin Sodium (Porcine) (Heparin -) 5,000 unit SQ TID CHRISTINE Last Admin: 06/19/20 21:18 Dose: 5,000 unit Documented by: Hydromorphone HCl (Hydromorphone 10 Mg/50 Ml-Ns) 10 mg GERIATRIC NURSING ASSISTANT GERIATRIC NURSING ASSISTANT CHRISTINE; Protocol Stop: 06/23/20 15:54 Last Admin: 06/18/20 18:05 Dose: 10 mg Documented by: Metronidazole (Flagyl 500mg Premixed Ivpb -) 500 mg in 100 mls @ 100 mls/hr IVPB Q8H-IV CHRISTINE Last Admin: 06/19/20 17:23 Dose: 100 mls/hr Documented by: Piperacillin Sod/Tazobactam (Sod 3.375 gm/ Dextrose) 50 mls @ 100 mls/hr IVPB Q8H-IV CHRISTINE; Protocol Last Admin: 06/19/20 17:23 Dose: 100 mls/hr Documented by: Lactated Ringer's (Lactated Ringers Solution) 1,000 ml in 1,000 mls @ 75 mls/hr IV ASDIR CHRISTINE Last Admin: 06/19/20 09:51 Dose: 75 mls/hr Documented by: Pantoprazole Sodium (Protonix Iv) 40 mg IVPUSH DAILY CHRISTINE Last Admin: 06/19/20 10:01 Dose: 40 mg Documented by: ASSESSMENT/PLAN: 54 yo F w/ PMHx of acute sigmoid diverticulitis (11/2018), asthma, obesity, and herniated disc presents with left lower quadrant abdominal pain. Pt is admitted for sepsis secondary to acute diverticulitis with perforation. Pt is s/p laparotomy and colostomy on 06/16/2020. Sepsis likely secondary to acute diverticulitis with perforation -POD #3 of laparotomy and colostomy. -Leukocytosis improved. -will continue with IVF -c/w ice chips, to advance diet when ostomy functioning -OOB as tolerated, incentive spirometer -monitor RAMON drainage -c/w GERIATRIC NURSING ASSISTANT for pain -c/w metronidazole 500 q8H (start 06/16, day 4) and zosyn 3.375 q8H (start 06/15, day 5) -Blood culture negative, abdomen wound cx negative -Urine Cx normal kristina -ID and surgery consulted. Asthma, chronic -Supplemental O2 to keep SpO2>90% -c/w Albuterol 2puffs Q4 PRN FEN -LR @ 75 -Lytes -NPO --> advance diet as per surgery recs PPx -DVT: SQH -GI: Protonix Dispo: -Continue to monitor on medical/surgical floors Visit type - Emergency Visit Emergency Visit: Yes ED Registration Date: 06/15/20 Care time: The patient presented to the Emergency Department on the above date and was hospitalized for further evaluation of their emergent condition. - New Patient This patient is new to me today: No - Critical Care Critical Care patient: No ATTENDING PHYSICIAN STATEMENT I saw and evaluated the patient. I reviewed the resident's note and discussed the case with the resident. I agree with the resident's findings and plan as documented. SUBJECTIVE: OBJECTIVE: ASSESSMENT AND PLAN:
[2020-06-19] MEDS: ACETAMINOPHEN 1000 MG/100 ML VIAL (NON FORMULARY) IVPB PRN (15:56)
--- NOTE | 2020-06-19 16:02 | PN ---
Progress Note, Physician History of Present Illness: Pt is alert, without abd pain, comfortable. C/O intermittent headaches which she attributes to migraines. Afebrile. - Current Medication List Current Medications: Active Medications Albuterol Sulfate (Ventolin Hfa Inhaler -) 2 puff IH Q4H PRN PRN Reason: SHORT OF BREATH/WHEEZING Benzocaine/Menthol (Cepacol Lozenge -) 1 each MM PRN PRN PRN Reason: SORE THROAT Last Admin: 06/17/20 12:06 Dose: 1 each Documented by: Fentanyl (Sublimaze Injection -) 25 mcg IVPUSH Q5M PRN PRN Reason: PAIN-PACU ORDER X 4 DOSES ONLY Heparin Sodium (Porcine) (Heparin -) 5,000 unit SQ TID [facility] Last Admin: 06/19/20 06:42 Dose: 5,000 unit Documented by: Hydromorphone HCl (Hydromorphone 10 Mg/50 Ml-Ns) 10 mg SYSTEM DEVELOPER ASSOCIATE MANAGER SYSTEM DEVELOPER ASSOCIATE MANAGER CHRISTINE; Protocol Stop: 06/23/20 15:54 Last Admin: 06/18/20 18:05 Dose: 10 mg Documented by: Metronidazole (Flagyl 500mg Premixed Ivpb -) 500 mg in 100 mls @ 100 mls/hr IVPB Q8H-IV CHRISTINE Last Admin: 06/19/20 10:02 Dose: 100 mls/hr Documented by: Piperacillin Sod/Tazobactam (Sod 3.375 gm/ Dextrose) 50 mls @ 100 mls/hr IVPB Q8H-IV CHRISTINE; Protocol Last Admin: 06/19/20 09:51 Dose: 100 mls/hr Documented by: Lactated Ringer's (Lactated Ringers Solution) 1,000 ml in 1,000 mls @ 75 mls/hr IV ASDIR CHRISTINE Last Admin: 06/19/20 09:51 Dose: 75 mls/hr Documented by: Pantoprazole Sodium (Protonix Iv) 40 mg IVPUSH DAILY [facility] Last Admin: 06/19/20 10:01 Dose: 40 mg Documented by: - Objective Vital Signs: Vital Signs Temperature 97.5 F L 06/19/20 14:00 Pulse Rate 86 06/19/20 14:00 Respiratory Rate 20 06/19/20 14:00 Blood Pressure 128/67 06/19/20 14:00 O2 Sat by Pulse Oximetry (%) 96 10/11/20 14:00 Constitutional: Yes: No Distress, Calm Neck: Yes: Supple Cardiovascular: Yes: Regular Rate and Rhythm Respiratory: Yes: Regular Gastrointestinal: Yes: Soft, Abdomen, Obese, Other (+ostomy, surgical wound site clean) Integumentary: Yes: WNL Neurological: Yes: Alert, Oriented Labs: CBC, BMP 06/18/20 07:30 06/18/20 07:30 INR, PTT INR 1.39 (0.83-1.09) H 06/15/20 10:45 Problem List - Problems (1) Abscess of sigmoid colon due to diverticulitis Code(s): K57.20 - DVTRCLI OF LG INT W PERFORATION AND ABSCESS W/O BLEEDING (2) Asthma Code(s): J45.909 - UNSPECIFIED ASTHMA, UNCOMPLICATED (3) Leukocytosis Code(s): D72.829 - ELEVATED WHITE BLOOD CELL COUNT, UNSPECIFIED (4) Obesity (BMI 30-39.9) Code(s): E66.9 - OBESITY, UNSPECIFIED Assessment/Plan Acute diverticulitis w/ perforation and abscess s/p Hartmans procedure/drain Asthma Obesity -- Afebrile, wbc trended down to normal -- continue current antibiotics for now -- Surgery following
--- NOTE | 2020-06-19 18:34 | PN ---
Teaching Attending Note Name of Resident: Dorothea Roca ATTENDING PHYSICIAN STATEMENT I saw and evaluated the patient. I reviewed the resident's note and discussed the case with the resident. I agree with the resident's findings and plan as documented. SUBJECTIVE: Patient is feeling better but c/o having caffeine withdrawel headache, better to day than yesterday. OBJECTIVE: Vital Signs Temperature 97.5 F L 06/19/20 14:00 Pulse Rate 86 06/19/20 14:00 Respiratory Rate 20 06/19/20 14:00 Blood Pressure 128/67 06/19/20 14:00 O2 Sat by Pulse Oximetry (%) 96 06/19/20 14:00 PE:per resident's note CBCD WBC 8.7 K/mm3 (4.0-10.0) 06/18/20 07:30 RBC 3.64 M/mm3 (3.60-5.2) 06/18/20 07:30 Hgb 9.3 GM/dL (10.7-15.3) L 06/18/20 07:30 Hct 28.9 % (32.4-45.2) L 06/18/20 07:30 MCV 79.3 fl (80-96) L 06/18/20 07:30 MCHC 32.2 g/dl (32.0-36.0) 06/18/20 07:30 RDW 16.4 % (11.6-15.6) H 06/18/20 07:30 Plt Count 382 K/MM3 (134-434) 06/18/20 07:30 MPV 7.4 fl (7.5-11.1) L 06/18/20 07:30 CMP Sodium 142 mmol/L (136-145) 06/18/20 07:30 Potassium 4.3 mmol/L (3.5-5.1) 06/18/20 07:30 Chloride 107 mmol/L (98-107) 06/18/20 07:30 Carbon Dioxide 29 mmol/L (21-32) 06/18/20 07:30 Anion Gap 6 MMOL/L (8-16) L 06/18/20 07:30 BUN 7.0 mg/dL (7-18) 06/18/20 07:30 Creatinine 0.3 mg/dL (0.55-1.3) L 06/18/20 07:30 Random Glucose 92 mg/dL (74-106) 06/18/20 07:30 Calcium 8.0 mg/dL (8.5-10.1) L 06/18/20 07:30 Total Bilirubin 0.7 mg/dL (0.2-1) 06/16/20 06:00 AST 11 U/L (15-37) L 06/16/20 06:00 ALT 20 U/L (13-61) 06/16/20 06:00 Alkaline Phosphatase 62 U/L (45-117) 06/16/20 06:00 Total Protein 6.1 g/dl (6.4-8.2) L 06/16/20 06:00 Albumin 2.8 g/dl (3.4-5.0) L 06/16/20 06:00 CARDIAC ENZYMES Creatine Kinase 367 U/L (26-192) H 06/15/20 10:45 Troponin I < 0.02 ng/ml (0.00-0.05) 06/15/20 10:45 Current Medications Generic Name Dose Route Start Last Admin Trade Name Freq PRN Reason Stop Dose Admin Albuterol Sulfate 2 puff 06/16/20 16:20 Ventolin Hfa Inhaler - IH Q4H PRN SHORT OF BREATH/WHEEZING Benzocaine/Menthol 1 each 06/17/20 10:06 06/17/20 12:06 Cepacol Lozenge - MM 1 each PRN PRN Administration SORE THROAT Fentanyl 25 mcg 06/16/20 16:20 Sublimaze Injection - IVPUSH Q5M PRN PAIN-PACU ORDER X 4 DOSES ONLY Heparin Sodium (Porcine) 5,000 unit 06/16/20 22:00 06/19/20 15:22 Heparin - SQ 5,000 unit TID CHRISTINE Administration Hydromorphone HCl 10 mg 06/16/20 16:20 06/18/20 18:05 Hydromorphone 10 Mg/50 Ml-Ns REFRIGERATOR ROOM CLERK 06/23/20 15:54 10 mg REFRIGERATOR ROOM CLERK CHRISTINE Administration Protocol Metronidazole 500 mg in 100 mls @ 100 mls/hr 06/16/20 18:00 06/19/20 17:23 Flagyl 500mg Premixed Ivpb - IVPB 100 mls/hr Q8H-IV CHRISTINE Administration Piperacillin Sod/Tazobactam 50 mls @ 100 mls/hr 06/17/20 18:00 06/19/20 17:23 Sod 3.375 gm/ Dextrose IVPB 100 mls/hr Q8H-IV CHRISTINE Administration Protocol Lactated Ringer's 1,000 ml in 1,000 mls @ 75 mls/hr 06/18/20 09:50 06/19/20 09:51 Lactated Ringers Solution IV 75 mls/hr ASDIR CHRISTINE Administration Pantoprazole Sodium 40 mg 06/17/20 10:00 06/19/20 10:01 Protonix Iv IVPUSH 40 mg DAILY CHRISTINE Administration Home Medications Medication Instructions Recorded NK [No Known Home Medication] 06/15/20 Microbiology 06/15/20 12:20 Blood - Peripheral Venous Blood Culture - Preliminary NO GROWTH OBTAINED AFTER 72 HOURS, INCUBATION TO CONTINUE FOR 2 DAYS. 06/16/20 13:50 Abdomen Gram Stain - Final 06/16/20 13:50 Abdomen Wound Culture - Final NO AEROBIC OR ANAEROBIC GROWTH OBTAINED. 06/16/20 09:30 Blood - Peripheral Venous Blood Culture - Preliminary NO GROWTH OBTAINED AFTER 72 HOURS, INCUBATION TO CONTINUE FOR 2 DAYS. 06/15/20 14:51 Urine - Urine Clean Catch Urine Culture - Final Normal Urogenital Allison CT Abd/Pelv: Acute sigmoid diverticulitis with small localized pneumoperitoneum within the adjacent mesentery. Probable 1.3 x 1.3 cm intramural abscess within the inflamed sigmoid colon wall. There is no definite paracolic abscess. Trace pelvic free fluid. Mild thickening of the urinary bladder dome adjacent to the area of sigmoid diverticulitis probably on a reactive basis. ASSESSMENT AND PLAN: This patient is a 54yof with PMhx of sigmoid diverticulitis (11/2018), asthma, obesity, and herniated disc (L4-L5 Dr. Bolton), presents with left lower quadrant abdominal pain. and was found to have acute recurrent diverticulitis with localized pneumoperitoneum within the adjacent mesentery. #Sepsis due to acute sigmoid diverticulitis with contained perforation. presented with fever with localized pneumoperitoneum s/p Laparotomy, colostomy POD#3 , NPO, pain control , Zosyn 3.375 Q8 and added Iv flagyl continue, follow blood cx and bx result #Hx of asthma: duoneb prn DVT: SCDs, heparin sq GI: Protonix 40mg continue npo for now will continue to monitor
[2020-06-20] MEDS ORDERED: PIPERACILLIN/TAZOBACTAM 3.375 GM VIAL IVPB ONE ×2 (00:52→09:01)
[2020-06-20] MEDS ORDERED: DEXTROSE 5%-WATER - 50 ML IVPB ONE ×2 (00:52→09:01)
[2020-06-20] MEDS: PIPERACILLIN/TAZOB 3.375 GM 3.375 GM in DEXTROSE 5%-WATER - 50 ML IVPB SCH ×3 (01:04→18:42)
[2020-06-20] MEDS ORDERED: PCA PUMP NR ONE ×2 (04:20→18:20)
[2020-06-20] MEDS ORDERED: ONDANSETRON 4 MG/2 ML VIAL IVPUSH ONE (04:46)
[2020-06-20] MEDS: HEPARIN NA (PORCINE) 5,000 UNITS/ML 1ML VIAL SQ SCH ×3 (05:37→21:40)
[2020-06-20] MEDS: LACTATED RINGERS SOLUTION 1,000 ML/1,000 ML INFUS.BAG IV SCH ×3 (05:40→18:40)
[2020-06-20 08:11] LABS: HEMATOCRIT 29.7 % (32.4-45.2); HEMOGLOBIN 9.4 GM/dL (10.7-15.3); MCH 24.8 pg (25.7-33.7); MCHC 31.8 g/dl (32.0-36.0); MEAN CELL VOLUME 77.8 fl (80-96); MEAN PLT VOLUME 7.2 fl (7.5-11.1); PLATELET COUNT 400 K/MM3 (134-434); RBC 3.81 M/mm3 (3.60-5.2); RDW 16.2 % (11.6-15.6); WHITE BLOOD COUNT 7.4 K/mm3 (4.0-10.0)
[2020-06-20] MEDS: HYDROmorphone *PCA* 10MG/50ML DISP.SYRIN PCA SCH (08:32)
[2020-06-20 08:48] LABS: BLOOD UREA NITROGEN 7.4 mg/dL (7-18); CALCIUM 7.9 mg/dL (8.5-10.1); CREATININE 0.2 mg/dL (0.55-1.3); MAGNESIUM 1.9 mg/dL (1.8-2.4); PHOSPHOROUS 2.7 mg/dL (2.5-4.9); POTASSIUM 3.9 mmol/L (3.5-5.1)
[2020-06-20] MEDS: PANTOPRAZOLE SODIUM 40 MG VIAL IVPUSH SCH (09:11)
--- NOTE | 2020-06-20 09:37 | PN ---
Teaching Attending Note Name of Resident: Ever Hathaway ATTENDING PHYSICIAN STATEMENT I saw and evaluated the patient. I reviewed the resident's note and discussed the case with the resident. I agree with the resident's findings and plan as documented. SUBJECTIVE: Patient continues to be NPO OBJECTIVE: Vital Signs Temperature 97.2 F L 06/20/20 05:24 Pulse Rate 84 06/20/20 06:00 Respiratory Rate 20 06/20/20 06:00 Blood Pressure 129/95 06/20/20 06:00 O2 Sat by Pulse Oximetry (%) 98 06/20/20 06:00 PE;per resedent's note + drainage CBCD WBC 7.4 K/mm3 (4.0-10.0) 06/20/20 06:54 RBC 3.81 M/mm3 (3.60-5.2) 06/20/20 06:54 Hgb 9.4 GM/dL (10.7-15.3) L 06/20/20 06:54 Hct 29.7 % (32.4-45.2) L 06/20/20 06:54 MCV 77.8 fl (80-96) L 06/20/20 06:54 MCHC 31.8 g/dl (32.0-36.0) L 06/20/20 06:54 RDW 16.2 % (11.6-15.6) H 06/20/20 06:54 Plt Count 400 K/MM3 (134-434) 06/20/20 06:54 MPV 7.2 fl (7.5-11.1) L 06/20/20 06:54 CMP Sodium 140 mmol/L (136-145) 06/20/20 06:54 Potassium 3.9 mmol/L (3.5-5.1) 06/20/20 06:54 Chloride 105 mmol/L (98-107) 06/20/20 06:54 Carbon Dioxide 25 mmol/L (21-32) 06/20/20 06:54 Anion Gap 9 MMOL/L (8-16) 06/20/20 06:54 BUN 7.4 mg/dL (7-18) 06/20/20 06:54 Creatinine 0.2 mg/dL (0.55-1.3) L 06/20/20 06:54 Random Glucose 81 mg/dL (74-106) 06/20/20 06:54 Calcium 7.9 mg/dL (8.5-10.1) L 06/20/20 06:54 Total Bilirubin 0.7 mg/dL (0.2-1) 06/16/20 06:00 AST 11 U/L (15-37) L 06/16/20 06:00 ALT 20 U/L (13-61) 06/16/20 06:00 Alkaline Phosphatase 62 U/L (45-117) 06/16/20 06:00 Total Protein 6.1 g/dl (6.4-8.2) L 06/16/20 06:00 Albumin 2.8 g/dl (3.4-5.0) L 06/16/20 06:00 CARDIAC ENZYMES Creatine Kinase 367 U/L (26-192) H 06/15/20 10:45 Troponin I < 0.02 ng/ml (0.00-0.05) 06/15/20 10:45 Current Medications Generic Name Dose Route Start Last Admin Trade Name Freq PRN Reason Stop Dose Admin Albuterol Sulfate 2 puff 06/16/20 16:20 Ventolin Hfa Inhaler - IH Q4H PRN SHORT OF BREATH/WHEEZING Benzocaine/Menthol 1 each 06/17/20 10:06 06/17/20 12:06 Cepacol Lozenge - MM 1 each PRN PRN Administration SORE THROAT Fentanyl 25 mcg 06/16/20 16:20 Sublimaze Injection - IVPUSH Q5M PRN PAIN-PACU ORDER X 4 DOSES ONLY Heparin Sodium (Porcine) 5,000 unit 06/16/20 22:00 06/20/20 05:37 Heparin - SQ 5,000 unit TID CHRISTINE Administration Hydromorphone HCl 10 mg 06/16/20 16:20 10 08:32 Hydromorphone 10 Mg/50 Ml-Ns REAL ESTATE AGENCY LICENSEE 06/23/20 15:54 Not Given REAL ESTATE AGENCY LICENSEE CHRISTINE Protocol Metronidazole 500 mg in 100 mls @ 100 mls/hr 06/16/20 18:00 06/20/20 09:11 Flagyl 500mg Premixed Ivpb - IVPB 100 mls/hr Q8H-IV CHRISTINE Administration Piperacillin Sod/Tazobactam 50 mls @ 100 mls/hr 06/17/20 18:00 06/20/20 09:11 Sod 3.375 gm/ Dextrose IVPB 100 mls/hr Q8H-IV CHRISTINE Administration Protocol Lactated Ringer's 1,000 ml in 1,000 mls @ 75 mls/hr 06/18/20 09:50 06/20/20 05:40 Lactated Ringers Solution IV 75 mls/hr ASDIR CHRISTINE Administration Pantoprazole Sodium 40 mg 06/17/20 10:00 06/20/20 09:11 Protonix Iv IVPUSH 40 mg DAILY CHRISTINE Administration Home Medications Medication Instructions Recorded NK [No Known Home Medication] 06/15/20 Microbiology 06/15/20 12:20 Blood - Peripheral Venous Blood Culture - Preliminary NO GROWTH OBTAINED AFTER 96 HOURS, INCUBATION TO CONTINUE FOR 1 DAYS. 06/16/20 09:30 Blood - Peripheral Venous Blood Culture - Preliminary NO GROWTH OBTAINED AFTER 96 HOURS, INCUBATION TO CONTINUE FOR 1 DAYS. 06/16/20 13:50 Abdomen Gram Stain - Final 06/16/20 13:50 Abdomen Wound Culture - Final NO AEROBIC OR ANAEROBIC GROWTH OBTAINED. 06/15/20 14:51 Urine - Urine Clean Catch Urine Culture - Final Normal Urogenital Allison CT Abd/Pelv: Acute sigmoid diverticulitis with small localized pneumoperitoneum within the adjacent mesentery. Probable 1.3 x 1.3 cm intramural abscess within the inflamed sigmoid colon wall. There is no definite paracolic abscess. Trace pelvic free fluid. Mild thickening of the urinary bladder dome adjacent to the area of sigmoid diverticulitis probably on a reactive basis. ASSESSMENT AND PLAN: This patient is a 54yof with PMhx of sigmoid diverticulitis (11/2018), asthma, obesity, and herniated disc (L4-L5 Dr. Bolton), presents with left lower quadrant abdominal pain. and was found to have acute recurrent diverticulitis with localized pneumoperitoneum within the adjacent mesentery. #Sepsis due to acute sigmoid diverticulitis with contained perforation. presented with fever with localized pneumoperitoneum s/p Laparotomy, colostomy POD#4 , NPO, pain control , Zosyn 3.375 Q8 and added Iv flagyl continue, follow blood cx and bx result #Hx of asthma: duoneb prn DVT: SCDs, heparin sq GI: Protonix 40mg continue npo for now as per sx further management per sx will continue to monitor
--- NOTE | 2020-06-20 10:54 | PN ---
Progress Note, Physician History of Present Illness: stable still with abd pain - Current Medication List Current Medications: Active Medications Albuterol Sulfate (Ventolin Hfa Inhaler -) 2 puff IH Q4H PRN PRN Reason: SHORT OF BREATH/WHEEZING Benzocaine/Menthol (Cepacol Lozenge -) 1 each MM PRN PRN PRN Reason: SORE THROAT Last Admin: 06/17/20 12:06 Dose: 1 each Documented by: Fentanyl (Sublimaze Injection -) 25 mcg IVPUSH Q5M PRN PRN Reason: PAIN-PACU ORDER X 4 DOSES ONLY Heparin Sodium (Porcine) (Heparin -) 5,000 unit SQ TID CHRISTINE Last Admin: 06/20/20 05:37 Dose: 5,000 unit Documented by: Hydromorphone HCl (Hydromorphone 10 Mg/50 Ml-Ns) 10 mg SHADE BANDER SHADE BANDER CHRISTINE; Protocol Stop: 06/23/20 15:54 Last Admin: 06/20/20 08:32 Dose: Not Given Documented by: Metronidazole (Flagyl 500mg Premixed Ivpb -) 500 mg in 100 mls @ 100 mls/hr IVPB Q8H-IV CHRISTINE Last Admin: 06/20/20 09:11 Dose: 100 mls/hr Documented by: Piperacillin Sod/Tazobactam (Sod 3.375 gm/ Dextrose) 50 mls @ 100 mls/hr IVPB Q8H-IV CHRISTINE; Protocol Last Admin: 06/20/20 09:11 Dose: 100 mls/hr Documented by: Lactated Ringer's (Lactated Ringers Solution) 1,000 ml in 1,000 mls @ 75 mls/hr IV ASDIR CHRISTINE Last Admin: 06/20/20 05:40 Dose: 75 mls/hr Documented by: Pantoprazole Sodium (Protonix Iv) 40 mg IVPUSH DAILY [facility] Last Admin: 06/20/20 09:11 Dose: 40 mg Documented by: - Objective Vital Signs: Vital Signs Temperature 97.2 F L 06/20/20 05:24 Pulse Rate 84 06/20/20 06:00 Respiratory Rate 20 06/20/20 06:00 Blood Pressure 129/95 06/20/20 06:00 O2 Sat by Pulse Oximetry (%) 98 06/20/20 06:00 Constitutional: Yes: Calm, Mild Distress Cardiovascular: Yes: S1, S2 Respiratory: Yes: Regular, CTA Bilaterally Gastrointestinal: Yes: Soft, Hypoactive Bowel Sounds Musculoskeletal: Yes: WNL Extremities: Yes: WNL Neurological: Yes: Alert, Oriented Psychiatric: Yes: Alert, Oriented Labs: CBC, BMP 06/20/20 06:54 06/20/20 06:54 INR, PTT INR 1.39 (0.83-1.09) H 06/15/20 10:45 Assessment/Plan Abscess of sigmoid colon due to diverticulitis (Acute) Asthma (Acute) Leukocytosis (Acute) Obesity (BMI 30-39.9) (Acute) Perforation of sigmoid colon due to diverticulitis (Acute) leukocytosis plan continue abx will deescalate tomorrow rest as per the team
--- NOTE | 2020-06-20 12:43 | PN ---
Physical Exam: SUBJECTIVE: Patient seen and examined today in no acute distress. POD 4 following Hartmanns procedure. Ptn states abdominal pain as decreased, denies any F/C, GORDILLO, changes in vision, CP, SoB, N/V, or changes in urinary habits. OBJECTIVE: Vital Signs Period Temp Pulse Resp BP Sys/Wood Pulse Ox Last 24 Hr 97.2 F-98.4 F 80-86 18-20 122-153/67-95 94-98 GENERAL: The patient is awake, alert, and fully oriented, in no acute distress. HEAD: Normal with no signs of trauma. EYES: PERRL, extraocular movements intact, sclera anicteric, conjunctiva clear. No ptosis. ENT: Ears normal, nares patent, oropharynx clear without exudates, moist mucous membranes. NECK: Trachea midline, full range of motion, supple. LUNGS: Breath sounds equal, clear to auscultation bilaterally, no wheezes, no crackles, no accessory muscle use. HEART: Regular rate and rhythm, S1, S2 without murmur, rub or gallop. ABDOMEN: Surgical dressing left intact, RAMON draining minimal serosanguinous fluid, Colostomy bag draining minimal serosanguinous fluid. Abdomen soft, nontender, nondistended, normoactive bowel sounds EXTREMITIES: 2+ pulses, warm, well-perfused, no edema. NEUROLOGICAL: Normal speech, gait not observed. PSYCH: Normal mood, normal affect. SKIN: Warm, dry, normal turgor, no rashes or lesions noted Laboratory Results - last 24 hr CBC, BMP 06/20/20 06:54 06/20/20 06:54 Active Medications Generic Name Dose Route Start Last Admin Trade Name Mitchell PRN Reason Stop Dose Admin Albuterol Sulfate 2 puff 06/16/20 16:20 Ventolin Hfa Inhaler - IH Q4H PRN SHORT OF BREATH/WHEEZING Benzocaine/Menthol 1 each 06/17/20 10:06 06/17/20 12:06 Cepacol Lozenge - MM 1 each PRN PRN Administration SORE THROAT Fentanyl 25 mcg 06/16/20 16:20 Sublimaze Injection - IVPUSH Q5M PRN PAIN-PACU ORDER X 4 DOSES ONLY Heparin Sodium (Porcine) 5,000 unit 06/16/20 22:00 06/20/20 05:37 Heparin - SQ 5,000 unit TID CHRISTINE Administration Hydromorphone HCl 10 mg 06/16/20 16:20 06/20/20 08:32 Hydromorphone 10 Mg/50 Ml-Ns COMMUNITY RELATIONS LIAISON 06/23/20 15:54 Not Given COMMUNITY RELATIONS LIAISON CHRISTINE Protocol Metronidazole 500 mg in 100 mls @ 100 mls/hr 06/16/20 18:00 06/20/20 09:11 Flagyl 500mg Premixed Ivpb - IVPB 100 mls/hr Q8H-IV CHRISTINE Administration Piperacillin Sod/Tazobactam 50 mls @ 100 mls/hr 06/17/20 18:00 06/20/20 09:11 Sod 3.375 gm/ Dextrose IVPB 100 mls/hr Q8H-IV CHRISTINE Administration Protocol Lactated Ringer's 1,000 ml in 1,000 mls @ 75 mls/hr 06/18/20 09:50 06/20/20 05:40 Lactated Ringers Solution IV 75 mls/hr ASDIR CHRISTINE Administration Pantoprazole Sodium 40 mg 06/17/20 10:00 06/20/20 09:11 Protonix Iv IVPUSH 40 mg DAILY CHRISTINE Administration ASSESSMENT/PLAN: 54 yo F w/ PMHx of acute sigmoid diverticulitis (11/2018), asthma, obesity, and herniated disc (L4-L5 Dr. Bolton), presents with left lower quadrant abdominal pain. Admitted for recurrent diverticulitis w/ associated localized pneumoperitoneum within the adjacent mesentery. Additional 1.3 x 1.3 cm intramural abscess noted in sigmoid wall on imaging. RESOLVED: SEPSIS 2/2 ACUTE SIGMOID DIVERTICULTIS W/ CONTAINED PERFORATION -POD 4: Cody procedure -Afebrile w/ no WBC -Per Gen Surg: -NPO w/ Ice Chips: Diet once ostomy functions -LR @ 75 -OOB to chair -Incentive Spirometer -COMMUNITY RELATIONS LIAISON for pain management (Hydromorphone) -VNS for home wound management -Per ID: -Zosyn 3.375 Q8 Day 6 -Per Primary -Flagyl 500mg Q8 Day 5 -FU Blood Cx: No growth @ 96hrs -Abdominal Cx: FINAL, No Growth -Urine Cx: Normal Allison HISTORY OF ASTHMA -Satting at 94-98% -No wheezing on auscultation -c/w Albuterol 2puffs Q4 PRN FEN -AJ @ 75 -Lytes -NPO --> advance diet as per surgery recs PPx -DVT: Heparin 5000 TID -GI: Protonix 40mg IV qdaily DISPO -Continue to monitor on medical/surgical floors Visit type - Emergency Visit Emergency Visit: No - New Patient This patient is new to me today: No - Critical Care Critical Care patient: No - Discharge Referral Referred to [facility] Med P.C.: No ATTENDING PHYSICIAN STATEMENT I saw and evaluated the patient. I reviewed the resident's note and discussed the case with the resident. I agree with the resident's findings and plan as documented. SUBJECTIVE: OBJECTIVE: ASSESSMENT AND PLAN:
--- NOTE | 2020-06-20 15:39 | PATH ---
Surgical Pathology Report Patient Name: ZORAN NICHOLAS Med. Rec. #: [id number] /Age/Gender: 1965 (Age: 54) / F Account: [id number] Location: [address] [place] [address]/[facility] Taken: 06/16/2020 Received: 06/17/2020 Reported: 06/20/2020 Physicians: Vasu Church MD Specimen(s) Received PORTION OF SIGMOID COLON Clinical History Perforation of sigmoid colon due to diverticulitis Final Diagnosis PORTION OF SIGMOID COLON, RESECTION: PORTION OF COLON WITH DIVERTICULA, MARKED ACUTE DIVERTICULITIS WITH TRANSMURAL ABSCESS FORMATION EXTENDING TO THE PERICOLONIC ADIPOSE TISSUE AND SEROSAL SURFACE. ACUTE SEROSITIS AND FOCAL FIBROTIC ADHESION. VIABLE MARGINS. Electronically Signed Krystian Holliday M.D. Gross Description Received in formalin labeled "portion of sigmoid colon," is an 8 cm in length portion of sigmoid colon with 2 undesignated mucosal margins and moderate attached pericolonic adipose tissue. The serosa is de jesus-pink with attached exudate. No discrete perforation site is identified. The mucosa is de jesus with normal folds. No mucosal masses are identified. Sectioning reveals a large abscess cavity, containing green pus, in the pericolonic adipose tissue. There are additional uncomplicated diverticula present, some of which contain fecal material. Safety Counselor sections are submitted in 9 cassettes as follows: 0-0-xukoowgghaot stapled mucosal margins; 3-9-gjstercq from abscess cavity; 6-3-xqzgrlbtpo uninvolved guest experience representative diverticula. DL/06/17/2020 saudi/06/17/2020
[2020-06-21] MEDS ORDERED: DEXTROSE 5%-WATER - 50 ML IVPB ONE ×2 (01:22→09:03)
[2020-06-21] MEDS ORDERED: PIPERACILLIN/TAZOBACTAM 3.375 GM VIAL IVPB ONE ×2 (01:22→09:03)
[2020-06-21] MEDS: PIPERACILLIN/TAZOB 3.375 GM 3.375 GM in DEXTROSE 5%-WATER - 50 ML IVPB SCH ×2 (01:31→09:16)
[2020-06-21] MEDS ORDERED: ACETAMINOPHEN 325 MG TABLET (FP) PO ONE (03:13)
[2020-06-21] MEDS: HEPARIN NA (PORCINE) 5,000 UNITS/ML 1ML VIAL SQ SCH ×3 (06:33→21:40)
--- NOTE | 2020-06-21 08:58 | PN ---
Progress Note (short form) - Note Progress Note: POD 5, s/p Baltazar's procedure for Acute sigmoid diverticulitis w/ perforation Pt seen and examined. Reports she is doing well. No issues overnight. Reports gas from colostomy overnight, no stool yet. Was oob ambulating with PT yesterday. Denies cp/sob, n/v/d. Vital Signs Temp 98.9 F 06/21/20 06:00 Pulse 82 06/21/20 06:00 Resp 18 06/21/20 06:00 BP 139/91 06/21/20 06:00 Pulse Ox 97 06/21/20 06:00 Intake & Output 06/20/20 06/20/20 06/21/20 11:59 23:59 11:59 Intake Total 0 1000 Output Total 230 20 Balance -230 0 980 Weight 202 lb Intake: IV 700 LACTATED RINGERS SOLUTION 700 1,000 ml In 1,000 ml @ 75 mls/hr IV ASDIR CHRISTINE Rx #:[id number] IVPB 300 Oral 0 0 Output: Drainage 20 20 Abdomen 20 20 Urine 200 Harmon 200 Emesis 10 Other: Voiding Method Toilet Toilet Diaper # Unmeasured Voids Harmon 1 1 Bowel Movement No No # Bowel Movements 0 Height 5 ft 5 in Body Mass Index (BMI) 33.6 CBC, BMP 06/20/20 06:54 06/20/20 06:54 Gen: awake, alert, nad Resp: unlabored on RA Abdo: soft, nt/nd, midline laparotomy incision with stables in place at umbilicus, proximal and distal portions of incision open, fascia intact, subcutaneous tissue clean with no erythema or drainage noted at either incision. Dressing changed with damp to dry and 4x4s. Colostomy viable, small amount of mucus at opening, +gas in colostomy bag. Ramon drain present with scant serosanguinous drainage in reservoir A/P: 54 y/o F w/ PMHx asthma, obesity, a/w left lower quadrant abdominal pain found to have recurrent diverticulitis w/ associated localized penumoperitoneum w/i adjacent mesentery, now POD 5, s/p Baltazar's procedure for Acute sigmoid diverticulitis w/ perforation. low grade fever 100F yesterday afternoon. Remainder of vss Labs pending for today RAMON output 20ml overnight -clear liquids ordered for lunch -pain control -dvt prophylaxis -oob with PT -continue abx per ID -will continue to follow d/w attending Dr Church
[2020-06-21 09:12] LABS: BASO % 0.6 % (0-2.0); EOS % 1.5 % (0-4.5); HEMATOCRIT 29.6 % (32.4-45.2); HEMOGLOBIN 9.6 GM/dL (10.7-15.3); LYMPH % 15.1 % (8-40); MCH 25.5 pg (25.7-33.7); MCHC 32.6 g/dl (32.0-36.0); MEAN CELL VOLUME 78.3 fl (80-96); MEAN PLT VOLUME 7.1 fl (7.5-11.1); MONO % 12.8 % (3.8-10.2); PLATELET COUNT 385 K/MM3 (134-434); RBC 3.78 M/mm3 (3.60-5.2); RDW 16.4 % (11.6-15.6)
--- NOTE | 2020-06-21 09:14 | PN ---
Teaching Attending Note Name of Resident: Sarthak Atkinson ATTENDING PHYSICIAN STATEMENT I saw and evaluated the patient. I reviewed the resident's note and discussed the case with the resident. I agree with the resident's findings and plan as documented. SUBJECTIVE: Patient still dizzy, weak attempting to eat OBJECTIVE: Vital Signs Period Temp Pulse Resp BP Sys/Wood Pulse Ox Last 24 Hr 98.9 F-100 F 80-95 18-19 129-146/78-91 95-97 Physical Exam as noted in Resident note ASSESSMENT AND PLAN: 54 y/o F with Hx of Sigmoid Diverticulitis, Asthma, Obesity, Lumbar disc herniation who presents with LLQ abdominal pain Abdominal pain: Likely in setting of diverticulitis with localized pneumoperitoneum s/p Laparatopy continue IV Abx advance diet as tolerated Appreciate Sx, ID recs Continue pain control IV Fluids PPI Asthma Cont PRN nebs PPx HSQ
[2020-06-21] MEDS: PANTOPRAZOLE SODIUM 40 MG VIAL IVPUSH SCH (09:17)
[2020-06-21 09:57] LABS: POTASSIUM 4.3 mmol/L (3.5-5.1)
[2020-06-21 10:07] LABS: BLOOD UREA NITROGEN 7.2 mg/dL (7-18); CALCIUM 8.2 mg/dL (8.5-10.1); CREATININE 0.2 mg/dL (0.55-1.3); MAGNESIUM 1.9 mg/dL (1.8-2.4)
[2020-06-21] MEDS: LACTATED RINGERS SOLUTION 1,000 ML/1,000 ML INFUS.BAG IV SCH (13:43)
--- NOTE | 2020-06-21 14:23 | PN ---
Physical Exam: SUBJECTIVE: Patient seen and examined this morning, expressed feeling of gas passing into colostomy bag last night. Feels better, pain controlled. OBJECTIVE: Vital Signs Period Temp Pulse Resp BP Sys/Wood Pulse Ox Last 24 Hr 98.0 F-100 F 80-92 17-19 121-146/78-91 95-98 GENERAL: The patient is awake, alert, and fully oriented, in no acute distress. HEAD: Normal with no signs of trauma. EYES: PERRL, extraocular movements intact, sclera anicteric, conjunctiva clear. No ptosis. ENT: Ears normal, nares patent, oropharynx clear without exudates, moist mucous membranes. NECK: Trachea midline, full range of motion, supple. LUNGS: Breath sounds equal, clear to auscultation bilaterally, no wheezes, no crackles, no accessory muscle use. HEART: Regular rate and rhythm, S1, S2 without murmur, rub or gallop. ABDOMEN: Surgical dressing left intact, RAMON draining minimal serosanguinous fluid, Colostomy bag has gas in it. Abdomen soft, nontender, nondistended, normoactive bowel sounds EXTREMITIES: 2+ pulses, warm, well-perfused, no edema. NEUROLOGICAL: Normal speech, gait not observed. PSYCH: Normal mood, normal affect. SKIN: Warm, dry, normal turgor, no rashes or lesions noted Laboratory Results - last 24 hr CBC, BMP 06/21/20 07:50 06/21/20 07:50 Active Medications Generic Name Dose Route Start Last Admin Trade Name Freq PRN Reason Stop Dose Admin Albuterol Sulfate 2 puff 06/16/20 16:20 Ventolin Hfa Inhaler - IH Q4H PRN SHORT OF BREATH/WHEEZING Benzocaine/Menthol 1 each 06/17/20 10:06 06/17/20 12:06 Cepacol Lozenge - MM 1 each PRN PRN Administration SORE THROAT Heparin Sodium (Porcine) 5,000 unit 06/16/20 22:00 06/21/20 13:43 Heparin - SQ 5,000 unit TID CHRISTINE Administration Hydromorphone HCl 10 mg 06/16/20 16:20 06/20/20 08:32 Hydromorphone 10 Mg/50 Ml-Ns POLICE DISPATCHER 06/23/20 15:54 Not Given POLICE DISPATCHER CHRISTINE Protocol Metronidazole 500 mg in 100 mls @ 100 mls/hr 06/16/20 18:00 06/21/20 09:16 Flagyl 500mg Premixed Ivpb - IVPB 100 mls/hr Q8H-IV CHRISTINE Administration Lactated Ringer's 1,000 ml in 1,000 mls @ 75 mls/hr 06/18/20 09:50 06/21/20 13:43 Lactated Ringers Solution IV 75 mls/hr ASDIR CHRISTINE Administration Pantoprazole Sodium 40 mg 06/17/20 10:00 06/21/20 09:17 Protonix Iv IVPUSH 40 mg DAILY CHRISTINE Administration ASSESSMENT/PLAN: 54 yo F w/ PMHx of acute sigmoid diverticulitis (11/2018), asthma, obesity, and herniated disc (L4-L5 Dr. Bolton), presents with left lower quadrant abdominal pain. Admitted for recurrent diverticulitis w/ associated localized pneumoperitoneum within the adjacent mesentery. Additional 1.3 x 1.3 cm intramural abscess noted in sigmoid wall on imaging. RESOLVED: SEPSIS 2/2 ACUTE SIGMOID DIVERTICULTIS W/ CONTAINED PERFORATION -POD 5: Cody's procedure -Low temp (100.0 on 06/20) w/ no WBC -Per Gen Surg: -CLD -LR @ 75 -OOB w/ PT -Incentive Spirometer -POLICE DISPATCHER for pain management (Hydromorphone) -VNS for home wound management -Per ID: -DC Zosyn -c/w Flagyl 500mg q8 Day 6 -Likely deescalate abx tomorrow -FU Blood Cx: FINAL, No Growth -Abdominal Cx: FINAL, No Growth -Urine Cx: Normal Allison HISTORY OF ASTHMA -Satting at 95-98% -No wheezing on auscultation -c/w Albuterol 2puffs Q4 PRN FEN -LR @ 75 -Lytes -CLD --> advance diet as per surgery recs PPx -DVT: Heparin 5000 TID -GI: Protonix 40mg IV qdaily DISPO -Continue to monitor on medical/surgical floors Visit type - Emergency Visit Emergency Visit: No - New Patient This patient is new to me today: No - Critical Care Critical Care patient: No - Discharge Referral Referred to [facility] Med P.C.: No ATTENDING PHYSICIAN STATEMENT I saw and evaluated the patient. I reviewed the resident's note and discussed the case with the resident. I agree with the resident's findings and plan as documented. SUBJECTIVE: OBJECTIVE: ASSESSMENT AND PLAN:
--- NOTE | 2020-06-21 14:28 | PN ---
Progress Note, Physician History of Present Illness: starting to feel better still with some abd pain - Current Medication List Current Medications: Active Medications Albuterol Sulfate (Ventolin Hfa Inhaler -) 2 puff IH Q4H PRN PRN Reason: SHORT OF BREATH/WHEEZING Benzocaine/Menthol (Cepacol Lozenge -) 1 each MM PRN PRN PRN Reason: SORE THROAT Last Admin: 06/17/20 12:06 Dose: 1 each Documented by: Heparin Sodium (Porcine) (Heparin -) 5,000 unit SQ TID CHRISTINE Last Admin: 06/21/20 13:43 Dose: 5,000 unit Documented by: Hydromorphone HCl (Hydromorphone 10 Mg/50 Ml-Ns) 10 mg VEGETABLE CUTTER VEGETABLE CUTTER CHRISTINE; Protocol Stop: 06/23/20 15:54 Last Admin: 06/20/20 08:32 Dose: Not Given Documented by: Metronidazole (Flagyl 500mg Premixed Ivpb -) 500 mg in 100 mls @ 100 mls/hr IVPB Q8H-IV CHRISTINE Last Admin: 06/21/20 09:16 Dose: 100 mls/hr Documented by: Piperacillin Sod/Tazobactam (Sod 3.375 gm/ Dextrose) 50 mls @ 100 mls/hr IVPB Q8H-IV CHRISTINE; Protocol Last Admin: 06/21/20 09:16 Dose: 100 mls/hr Documented by: Lactated Ringer's (Lactated Ringers Solution) 1,000 ml in 1,000 mls @ 75 mls/hr IV ASDIR CHRISTINE Last Admin: 06/21/20 13:43 Dose: 75 mls/hr Documented by: Pantoprazole Sodium (Protonix Iv) 40 mg IVPUSH DAILY [facility] Last Admin: 06/21/20 09:17 Dose: 40 mg Documented by: - Objective Vital Signs: Vital Signs Temperature 99.6 F 06/21/20 14:21 Pulse Rate 95 H 06/21/20 14:21 Respiratory Rate 18 06/21/20 14:21 Blood Pressure 129/81 06/21/20 14:21 O2 Sat by Pulse Oximetry (%) 97 06/21/20 14:21 Constitutional: Yes: Calm, Mild Distress Cardiovascular: Yes: S1, S2 Respiratory: Yes: Regular, CTA Bilaterally Gastrointestinal: Yes: Soft, Hypoactive Bowel Sounds Musculoskeletal: Yes: WNL Extremities: Yes: WNL Neurological: Yes: Alert, Oriented Psychiatric: Yes: Alert, Oriented Labs: CBC, BMP 06/21/20 07:50 06/21/20 07:50 INR, PTT INR 1.39 (0.83-1.09) H 06/15/20 10:45 Assessment/Plan Abscess of sigmoid colon due to diverticulitis (Acute) Asthma (Acute) Leukocytosis (Acute) Obesity (BMI 30-39.9) (Acute) Perforation of sigmoid colon due to diverticulitis (Acute) leukocytosis plan will stop zosyn continue falgyl for now will deescalate probably tomorrow nutrition
[2020-06-21] MEDS ORDERED: PCA PUMP NR ONE (20:22)
[2020-06-22] MEDS: HEPARIN NA (PORCINE) 5,000 UNITS/ML 1ML VIAL SQ SCH ×3 (05:51→21:43)
[2020-06-22 09:04] LABS: BASO % 0.6 % (0-2.0); EOS % 0.9 % (0-4.5); HEMATOCRIT 31.3 % (32.4-45.2); HEMOGLOBIN 10.1 GM/dL (10.7-15.3); LYMPH % 12.5 % (8-40); MCH 25.3 pg (25.7-33.7); MCHC 32.2 g/dl (32.0-36.0); MEAN CELL VOLUME 78.6 fl (80-96); MEAN PLT VOLUME 7.1 fl (7.5-11.1); MONO % 12.4 % (3.8-10.2); NEUT % 73.6 % (42.8-82.8); PLATELET COUNT 413 K/MM3 (134-434); RBC 3.98 M/mm3 (3.60-5.2); RDW 16.7 % (11.6-15.6); WHITE BLOOD COUNT 10.5 K/mm3 (4.0-10.0)
[2020-06-22] MEDS: PANTOPRAZOLE SODIUM 40 MG VIAL IVPUSH SCH (09:22)
[2020-06-22 09:31] LABS: POTASSIUM 4.4 mmol/L (3.5-5.1)
[2020-06-22 09:42] LABS: BLOOD UREA NITROGEN 5.8 mg/dL (7-18); CALCIUM 8.4 mg/dL (8.5-10.1); CREATININE 0.2 mg/dL (0.55-1.3)
--- NOTE | 2020-06-22 10:51 | PN ---
Progress Note (short form) - Note Progress Note: POD 6, s/p Baltazar's procedure for Acute sigmoid diverticulitis w/ perforation Pt seen and examined. Reports she is doing well. No issues overnight. Continues to have gas from colostomy, minimal stool. Was oob ambulating with PT yesterday. Denies cp/sob, n/v/d. Vital Signs Temp 98.7 F 06/22/20 08:23 Pulse 80 06/22/20 08:23 Resp 18 06/22/20 08:23 BP 143/82 06/22/20 08:23 Pulse Ox 98 06/22/20 08:23 Intake & Output 06/21/20 06/21/20 06/22/20 11:59 23:59 11:59 Intake Total 1000 1525 1025 Output Total 9987 517 4491 Balance -865 1215 0 Intake: IV 700 700 825 LACTATED RINGERS SOLUTION 700 700 825 1,000 ml In 1,000 ml @ 75 mls/hr IV ASDIR CHRISTINE Rx #:[id number] IVPB 300 250 100 Oral 0 575 100 Output: Drainage 65 10 25 Abdomen 65 10 25 Urine 6764 798 5099 External Catheter 2298 344 7663 Other: Voiding Method External Catheter Toilet Toilet # Unmeasured Voids Harmon 1 2 Void 2 Bowel Movement No No No CBC, BMP 06/22/20 08:15 06/22/20 08:15 Gen: awake, alert, nad Resp: unlabored on RA Abdo: soft, nt/nd, midline laparotomy incision with stables in place at umbilicus, proximal and distal portions of incision open, fascia intact, subcutaneous tissue clean with no erythema or drainage noted at either incision. Dressing changed with damp to dry and 4x4s. Colostomy viable, small amount of stool at opening, +gas in colostomy bag. Ramon drain present with scant serosanguinous drainage in reservoir A/P: 54 y/o F w/ PMHx asthma, obesity, a/w left lower quadrant abdominal pain found to have recurrent diverticulitis w/ associated localized penumoperitoneum w/i adjacent mesentery, now POD 6, s/p Baltazar's procedure for Acute sigmoid diverticulitis w/ perforation. afebrile, VSS Labs reviewed, wbc trending up RAMON output 25ml overnight -continue clear liquids -pain control -dvt prophylaxis -oob to chair for meals, oob with PT -continue abx per ID -encourage incentive spirometer -will continue to follow d/w attending Dr Church
--- NOTE | 2020-06-22 11:26 | PN ---
Progress Note, Physician History of Present Illness: no complaints wbc marginally increased - Current Medication List Current Medications: Active Medications Albuterol Sulfate (Ventolin Hfa Inhaler -) 2 puff IH Q4H PRN PRN Reason: SHORT OF BREATH/WHEEZING Benzocaine/Menthol (Cepacol Lozenge -) 1 each MM PRN PRN PRN Reason: SORE THROAT Last Admin: 06/17/20 12:06 Dose: 1 each Documented by: Heparin Sodium (Porcine) (Heparin -) 5,000 unit SQ TID CHRISTINE Last Admin: 06/22/20 05:51 Dose: 5,000 unit Documented by: Hydromorphone HCl (Hydromorphone 10 Mg/50 Ml-Ns) 10 mg HORSE SHOW MANAGER HORSE SHOW MANAGER CHRISTINE; Protocol Stop: 06/23/20 15:54 Last Admin: 06/20/20 08:32 Dose: Not Given Documented by: Metronidazole (Flagyl 500mg Premixed Ivpb -) 500 mg in 100 mls @ 100 mls/hr IVPB Q8H-IV CHRISTINE Last Admin: 06/22/20 09:23 Dose: 100 mls/hr Documented by: Lactated Ringer's (Lactated Ringers Solution) 1,000 ml in 1,000 mls @ 75 mls/hr IV ASDIR CHRISTINE Last Admin: 06/21/20 13:43 Dose: 75 mls/hr Documented by: Pantoprazole Sodium (Protonix Iv) 40 mg IVPUSH DAILY [facility] Last Admin: 06/22/20 09:22 Dose: 40 mg Documented by: - Objective Vital Signs: Vital Signs Temperature 98.7 F 06/22/20 08:23 Pulse Rate 80 06/22/20 08:23 Respiratory Rate 18 06/22/20 08:23 Blood Pressure 143/82 06/22/20 08:23 O2 Sat by Pulse Oximetry (%) 98 06/22/20 08:23 Constitutional: Yes: No Distress, Calm, Obese Cardiovascular: Yes: Regular Rate and Rhythm Respiratory: Yes: Regular, CTA Bilaterally Gastrointestinal: Yes: Normal Bowel Sounds, Soft Musculoskeletal: Yes: WNL Extremities: Yes: WNL Neurological: Yes: Alert, Oriented Psychiatric: Yes: Alert, Oriented Labs: CBC, BMP 06/22/20 08:15 06/22/20 08:15 INR, PTT INR 1.39 (0.83-1.09) H 06/15/20 10:45 Assessment/Plan Abscess of sigmoid colon due to diverticulitis (Acute) Asthma (Acute) Leukocytosis (Acute) Obesity (BMI 30-39.9) (Acute) Perforation of sigmoid colon due to diverticulitis (Acute) leukocytosis plan continue current mgmt rest as per the team
--- NOTE | 2020-06-22 13:05 | PN ---
Teaching Attending Note Name of Resident: Ever Hathaway ATTENDING PHYSICIAN STATEMENT I saw and evaluated the patient. I reviewed the resident's note and discussed the case with the resident. I agree with the resident's findings and plan as documented. SUBJECTIVE: Patient feels well, tolerating PO intake OBJECTIVE: Vital Signs Period Temp Pulse Resp BP Sys/Wood Pulse Ox Last 24 Hr 98.7 F-99.7 F 80-95 18-18 129-150/81-88 94-98 Physical Exam as noted in Resident note ASSESSMENT AND PLAN: 54 y/o F with Hx of Sigmoid Diverticulitis, Asthma, Obesity, Lumbar disc herniation who presents with LLQ abdominal pain Abdominal pain: Likely in setting of diverticulitis with localized pneumoperitoneum s/p OR with Sx for hartmans procedure with drain placement Patient will likley need drain removed prior to discharge Continue flagyl Appreciate Sx, ID recs Continue pain control PPI Asthma Cont PRN nebs PPx HSQ
[2020-06-22] MEDS: LACTATED RINGERS SOLUTION 1,000 ML/1,000 ML INFUS.BAG IV SCH (13:29)
--- NOTE | 2020-06-22 16:00 | PN ---
Physical Exam: SUBJECTIVE: Patient seen and examined today, in no acute distress, RAMON with minimal serosanguinous output, gas seen in colostomy bag with minimal stool at ostomy opening. Ptn endorsing mild nausea w/ meals, however not endorsing abdominal pain, or vomiting, tolerating diet. Denies F/C OBJECTIVE: Vital Signs Period Temp Pulse Resp BP Sys/Wood Pulse Ox Last 24 Hr 98.6 F-99.7 F 80-102 18-18 126-150/73-88 94-98 GENERAL: The patient is awake, alert, and fully oriented, in no acute distress. HEAD: Normal with no signs of trauma. EYES: PERRL, extraocular movements intact, sclera anicteric, conjunctiva clear. No ptosis. ENT: Ears normal, nares patent, oropharynx clear without exudates, moist mucous membranes. NECK: Trachea midline, full range of motion, supple. LUNGS: Breath sounds equal, clear to auscultation bilaterally, no wheezes, no crackles, no accessory muscle use. HEART: Regular rate and rhythm, S1, S2 without murmur, rub or gallop. ABDOMEN: Surgical dressing left intact, RAMON draining minimal serosanguinous fluid, Colostomy bag has gas in it and stool at opening. Abdomen soft, nontender, nondistended, normoactive bowel sounds EXTREMITIES: 2+ pulses, warm, well-perfused, no edema. NEUROLOGICAL: Normal speech, gait not observed. PSYCH: Normal mood, normal affect. SKIN: Warm, dry, normal turgor, no rashes or lesions noted Laboratory Results - last 24 hr CBC, BMP 06/22/20 08:15 06/22/20 08:15 Active Medications Generic Name Dose Route Start Last Admin Trade Name Freq PRN Reason Stop Dose Admin Albuterol Sulfate 2 puff 06/16/20 16:20 Ventolin Hfa Inhaler - IH Q4H PRN SHORT OF BREATH/WHEEZING Benzocaine/Menthol 1 each 06/17/20 10:06 06/17/20 12:06 Cepacol Lozenge - MM 1 each PRN PRN Administration SORE THROAT Heparin Sodium (Porcine) 5,000 unit 06/16/20 22:00 06/22/20 13:28 Heparin - SQ 5,000 unit TID CHRISTINE Administration Hydromorphone HCl 10 mg 06/16/20 16:20 06/22/20 18:10 Hydromorphone 10 Mg/50 Ml-Ns PARKING STATION ATTENDANT 06/23/20 15:54 Not Given PARKING STATION ATTENDANT CHRISTINE Protocol Metronidazole 500 mg in 100 mls @ 100 mls/hr 06/16/20 18:00 06/22/20 09:23 Flagyl 500mg Premixed Ivpb - IVPB 100 mls/hr Q8H-IV CHRISTINE Administration Lactated Ringer's 1,000 ml in 1,000 mls @ 75 mls/hr 06/18/20 09:50 06/22/20 13:29 Lactated Ringers Solution IV Not Given ASDIR CHRISTINE Pantoprazole Sodium 40 mg 06/17/20 10:00 06/22/20 09:22 Protonix Iv IVPUSH 40 mg DAILY CHRISTINE Administration ASSESSMENT/PLAN: 54 yo F w/ PMHx of acute sigmoid diverticulitis (11/2018), asthma, obesity, and herniated disc (L4-L5 Dr. Bolton), presents with left lower quadrant abdominal pain. Admitted for recurrent diverticulitis w/ associated localized pneumoperitoneum within the adjacent mesentery. Additional 1.3 x 1.3 cm intramural abscess noted in sigmoid wall on imaging. RESOLVED: SEPSIS 2/2 ACUTE SIGMOID DIVERTICULTIS W/ CONTAINED PERFORATION -POD 6: Cody's procedure -Afebrile: WBC 10.5 (increased) -Per Gen Surg: -CLD -LR @ 75 -OOB w/ PT -Incentive Spirometer -PARKING STATION ATTENDANT for pain management (Hydromorphone) -VNS for home wound management -Per ID: -c/w Flagyl 500mg q8 Day 7 -contact ID regarding deescalation -Primary: -FU surgery regarding drain removal prior to DC -FU Blood Cx: FINAL, No Growth -Abdominal Cx: FINAL, No Growth -Urine Cx: Normal Allison HISTORY OF ASTHMA -Satting on RA -No wheezing on auscultation -c/w Albuterol 2puffs Q4 PRN FEN -LR @ 75 -Lytes -CLD --> advance diet as per surgery recs PPx -DVT: Heparin 5000 TID -GI: Protonix 40mg IV qdaily DISPO -Continue to monitor on medical/surgical floors Visit type - Emergency Visit Emergency Visit: No - New Patient This patient is new to me today: No - Critical Care Critical Care patient: No - Discharge Referral Referred to [facility] Med P.C.: No ATTENDING PHYSICIAN STATEMENT I saw and evaluated the patient. I reviewed the resident's note and discussed the case with the resident. I agree with the resident's findings and plan as documented. SUBJECTIVE: OBJECTIVE: ASSESSMENT AND PLAN:
[2020-06-22] MEDS: HYDROmorphone *PCA* 10MG/50ML DISP.SYRIN PCA SCH (18:10)
[2020-06-23] MEDS: LACTATED RINGERS SOLUTION 1,000 ML/1,000 ML INFUS.BAG IV SCH (00:22)
[2020-06-23] MEDS: HEPARIN NA (PORCINE) 5,000 UNITS/ML 1ML VIAL SQ SCH ×2 (06:09→16:29)
[2020-06-23 08:12] LABS: BASO % 0.7 % (0-2.0); EOS % 0.7 % (0-4.5); HEMOGLOBIN 9.7 GM/dL (10.7-15.3); LYMPH % 11.8 % (8-40); MCH 25.3 pg (25.7-33.7); MCHC 32.4 g/dl (32.0-36.0); MEAN CELL VOLUME 78.1 fl (80-96); MEAN PLT VOLUME 7.2 fl (7.5-11.1); MONO % 14.3 % (3.8-10.2); NEUT % 72.5 % (42.8-82.8); PLATELET COUNT 437 K/MM3 (134-434); RBC 3.85 M/mm3 (3.60-5.2); RDW 16.6 % (11.6-15.6)
[2020-06-23 08:19] LABS: BLOOD UREA NITROGEN 5.3 mg/dL (7-18); CALCIUM 8.4 mg/dL (8.5-10.1); CREATININE 0.3 mg/dL (0.55-1.3); POTASSIUM 4.4 mmol/L (3.5-5.1)
[2020-06-23] MEDS ORDERED: PCA PUMP NR ONE (09:06)
[2020-06-23] MEDS: PANTOPRAZOLE SODIUM 40 MG VIAL IVPUSH SCH (09:12)
--- NOTE | 2020-06-23 10:43 | PN ---
Progress Note, Physician History of Present Illness: no complaints stable - Current Medication List Current Medications: Active Medications Albuterol Sulfate (Ventolin Hfa Inhaler -) 2 puff IH Q4H PRN PRN Reason: SHORT OF BREATH/WHEEZING Benzocaine/Menthol (Cepacol Lozenge -) 1 each MM PRN PRN PRN Reason: SORE THROAT Last Admin: 06/17/20 12:06 Dose: 1 each Documented by: Heparin Sodium (Porcine) (Heparin -) 5,000 unit SQ TID CHRISTINE Last Admin: 06/23/20 06:09 Dose: 5,000 unit Documented by: Hydromorphone HCl (Hydromorphone 10 Mg/50 Ml-Ns) 10 mg JUNIOR DATABASE ADMINISTRATOR JUNIOR DATABASE ADMINISTRATOR CHRISTINE; Protocol Stop: 06/23/20 15:54 Last Admin: 06/22/20 18:10 Dose: Not Given Documented by: Metronidazole (Flagyl 500mg Premixed Ivpb -) 500 mg in 100 mls @ 100 mls/hr IVPB Q8H-IV CHRISTINE Last Admin: 06/23/20 09:13 Dose: 100 mls/hr Documented by: Lactated Ringer's (Lactated Ringers Solution) 1,000 ml in 1,000 mls @ 75 mls/hr IV ASDIR CHRISTINE Last Admin: 06/23/20 00:22 Dose: 75 mls/hr Documented by: Pantoprazole Sodium (Protonix Iv) 40 mg IVPUSH DAILY [facility] Last Admin: 06/23/20 09:12 Dose: 40 mg Documented by: - Objective Vital Signs: Vital Signs Temperature 99.7 F H 06/23/20 06:00 Pulse Rate 79 06/23/20 06:00 Respiratory Rate 18 06/23/20 06:00 Blood Pressure 135/84 06/23/20 06:00 O2 Sat by Pulse Oximetry (%) 96 06/23/20 06:00 Constitutional: Yes: No Distress, Calm Cardiovascular: Yes: S1, S2 Respiratory: Yes: Regular, CTA Bilaterally Gastrointestinal: Yes: Normal Bowel Sounds, Soft Musculoskeletal: Yes: WNL Extremities: Yes: WNL Wound/Incision: Yes: Clean/Dry Neurological: Yes: Alert, Oriented Psychiatric: Yes: Alert, Oriented Labs: CBC, BMP 06/23/20 07:15 06/23/20 07:15 INR, PTT INR 1.39 (0.83-1.09) H 06/15/20 10:45 Assessment/Plan Abscess of sigmoid colon due to diverticulitis (Acute) Asthma (Acute) Leukocytosis (Acute) Obesity (BMI 30-39.9) (Acute) Perforation of sigmoid colon due to diverticulitis (Acute) leukocytosis plan continue current mgmt rest as per the team will stop flagyl
--- NOTE | 2020-06-23 12:34 | PN ---
Progress Note (short form) - Note Progress Note: SURGERY POD 7, s/p Baltazar's procedure for Acute sigmoid diverticulitis w/ perforation Pt seen and examined. Reports she is doing well. No issues overnight. Continues to have gas from colostomy, minimal stool. Was oob ambulating with PT yesterday. Denies cp/sob, n/v/d. Last Vital Signs Temp Pulse Resp BP Pulse Ox 99.7 F H 79 18 135/84 96 06/23/20 06:00 06/23/20 06:00 06/23/20 06:00 06/23/20 06:00 06/23/20 06:00 CBC, BMP 06/23/20 07:15 06/23/20 07:15 Gen: awake, alert, nad Resp: unlabored on RA Abdo: soft, nt/nd, midline laparotomy incision with stables in place at umbilicus, proximal and distal portions of incision open, fascia intact, subcutaneous tissue clean with no erythema or drainage noted at either incision. Dressing changed with damp to dry and 4x4s. Colostomy viable, small amount of stool at opening, +gas in colostomy bag. Josiah drain present with scant serosanguinous drainage in reservoir A/P: 54 y/o F w/ PMHx asthma, obesity, a/w left lower quadrant abdominal pain found to have recurrent diverticulitis w/ associated localized penumoperitoneum w/i adjacent mesentery, now POD 7, s/p Baltazar's procedure for Acute sigmoid diverticulitis w/ perforation. -drain removed at bedside and dressing changed. -pt appears to be doing well, will need VNS for wound care as outpatient -pt cleared from surgery standpoint for discharge -pt should follow up with Dr. Church as outpatient next week in the office, call for appt. d/w attending Dr Church
--- NOTE | 2020-06-23 14:14 | DS ---
Physical Exam: SUBJECTIVE: Patient seen and examined, in no acute distress, endorses only mild abdominal pain, however denies any difficulty with food, denies N/V, F/C, CP, SoB. OBJECTIVE: Vital Signs Period Temp Pulse Resp BP Sys/Wood Pulse Ox Last 24 Hr 99.6 F-99.7 F 79-91 17-18 117-135/63-84 96-98 PHYSICAL EXAM GENERAL: The patient is awake, alert, and fully oriented, in no acute distress. HEAD: Normal with no signs of trauma. EYES: PERRL, extraocular movements intact, sclera anicteric, conjunctiva clear. No ptosis. ENT: Ears normal, nares patent, oropharynx clear without exudates, moist mucous membranes. NECK: Trachea midline, full range of motion, supple. LUNGS: Breath sounds equal, clear to auscultation bilaterally, no wheezes, no crackles, no accessory muscle use. HEART: Regular rate and rhythm, S1, S2 without murmur, rub or gallop. ABDOMEN: Surgical dressing left intact, RAMON Removed. Colostomy bag has gas and liquid stool in it. Abdomen, soft, non-tender, normoactive bs EXTREMITIES: 2+ pulses, warm, well-perfused, no edema. NEUROLOGICAL: Normal speech, gait not observed. PSYCH: Normal mood, normal affect. SKIN: Warm, dry, normal turgor, no rashes or lesions noted LABS Laboratory Results - last 24 hr 06/23/20 06/23/20 07:15 07:15 WBC 10.0 RBC 3.85 Hgb 9.7 L Hct 30.0 L MCV 78.1 L MCH 25.3 L MCHC 32.4 RDW 16.6 H Plt Count 437 H MPV 7.2 L Absolute Neuts (auto) 7.2 Neutrophils % 72.5 Lymphocytes % 11.8 Monocytes % 14.3 H Eosinophils % 0.7 Basophils % 0.7 Nucleated RBC % 0 Sodium 139 Potassium 4.4 Chloride 104 Carbon Dioxide 31 Anion Gap 3 L BUN 5.3 L Creatinine 0.3 L Est GFR (CKD-EPI)AfAm 149.39 Est GFR (CKD-EPI)NonAf 128.90 Random Glucose 120 H Calcium 8.4 L HOSPITAL COURSE: Date of Admission:06/15/20 Date of Discharge: 06/23/20 Minutes to complete discharge: 36 Discharge Summary Problems reviewed: Yes Reason For Visit: PERFORATION OF SIGMOID COLON DUE TO DIVERTICULITIS Current Active Problems Asthma (Chronic) Obesity (BMI 30-39.9) (Chronic) Condition: Stable - Instructions Diet, Activity, Other Instructions: YOUR VISIT You came to the hospital because you were experiencing fever and belly pain. You were admitted to the hospital for a condition called, "diverticulitis," which is an inflammation of your intestines. You were found to have a, "perforation," which is a hole in your intestines. Surgery was performed and your bowel was repaired. You now have a, "colostomy bag," which is a way for you to have bowel movements for the present time after your surgery. While here, you were also seen by an infectious disease doctor. Please follow up with your surgeon regarding the, "reversal" of your colostomy, which will complete the procedure. You are now stable and may return home. Also found during your stay:: 1.) CAT Scan: Several, "hepatic cysts" that were unchanged from your previous imaging. You should discuss these with your primary care provider. 2.) CAT Scan: Mild deformity of one of the bones in your lower back which could result in back pain. You should discuss this with your primary care provider. MEDICATIONS You are not required to take any new medications after your hospital stay. WOUND CARE It is recommoneded that our perform daily dressing changes with wet to dry dressings for your midline abdominal incision. Please provide these instructions to your visiting nursing service and wound care team. Colostomy Instructions: See below ADDITIONAL CARE -Please make an appointment to see Dr. Church in 7-10 days following your discha rge home. Please call: [phone] -Please make an appointment to see a primary care provider 2 week from today. Since you do not have one, you can call to schedule an appointment at the [facility] residents' clinic, located at [address] [place] [address]. If you would like to continue seeing Dr. Ever Hathaway, please ask for a Saturday morning appointment. ADDITIONAL INFORMATION -Please call [phone] or come directly to the emergency department if you experience recurrence of the symptoms that brought you to the hospital, unusual headache, vision change, shortness of breath, chest pain, numbness, tingling, loss of alertness/awareness, loss of function, unusual bleeding or any alarming symptoms. Dr. Church Post-Operative Discharge Instructions Physical activity Resume your normal everyday activity as tolerated no heavy lifting or exercise until seen by your surgeon. You may walk unlimited amounts of and climb stairs. You may resume driving the car when you feel safe and comfortable behind the w heel. Wound care You have a liquid bandage over your incisions. This will come off slowly on its own over the next few weeks. Please avoid picking at it if you notice it flaking. You may shower starting tomorrow. When showering allow soap and water to run over the incision. Do not scrub, pat dry after showering. Diet There are no dietary restrictions. Eat healthy, high-fiber foods. Drink 6 to 8 glasses of liquid each day. This will assist in keeping your bowels are regular. Pain management You may take Tylenol or acetaminophen or Ibuprofen (for example, Motrin, Advil etc.) Any pain prescription medication ordered should be taken as prescribed for moderate to severe pain. Call Dr. Church for any of the following: Severe pain not relieved by medication Fever of 101 or higher Excessive bleeding or drainage on dressing Inability to urinate Call the office at [phone] for a post operative appointment in 7 - 10 days. [facility] The Drug Utilization Report below displays all of the controlled substance presc riptions, if any, that your patient has filled in the last twelve months. The information displayed on this report is compiled from pharmacy submissions to the Department, and accurately reflects the information as submitted by the pharmacies. This report was requested by: Guero Maguire | Reference #: [id number] Changing Your Ostomy Pouch Home care: Remove the used pouch and empty into the toilet. Starting at the upper edge of the skin barrier, carefully push the skin away from the barrier with one hand. Slowly peel back the skin barrier with the other hand. Peel all the way around the skin barrier until the pouch comes off. Seal the pouch in a plastic bag. Then put it in a second plastic bag. Throw it away in a trash bin. Clean around the stoma: Wipe any stool off the skin around the stoma with toilet paper. Clean the skin with warm water and a soft washcloth. Wash right up to the edge of the stoma. Pat the skin dry with a clean towel. If needed, put on extra skin protection, such as moisture barrier cream or powder. Put on the new pouch: Peel the backing off the skin barrier. Place the precut skin barrier over the stoma. If you dont use a pouch with a precut skin barrier, size and cut the opening (1/16 inch bigger than the stoma) and peel the backing off the skin barrier. Carefully place it over the stoma. The pouch opening should point toward your feet. If using a pouch with a clamp at the base, it may be easier to apply the clamp to the pouch first. Snap the pouch onto the barrier flange (if you use a 2-piece pouch). Press the barrier against your skin. Hold it in place for 45 seconds. Clamp the tail of the pouch (if drainable or reusable). Wash your hands with clean, warm or cold water for at least 20 seconds when you are done. Referrals: Vasu Church MD [Staff Physician] - Disposition: HOME - Home Medications Comprehensive Discharge Medication List: Ambulatory Orders NK [No Known Home Medication] 06/15/20 - Discharge Referral Referred to [facility] Med P.C.: No ATTENDING PHYSICIAN STATEMENT I saw and evaluated the patient. I reviewed the resident's note and discussed the case with the resident. I agree with the resident's findings and plan as documented. SUBJECTIVE: OBJECTIVE: ASSESSMENT AND PLAN:
--- NOTE | 2020-06-23 14:21 | PN ---
Teaching Attending Note Name of Resident: Ever Hathaway ATTENDING PHYSICIAN STATEMENT I saw and evaluated the patient. I reviewed the resident's note and discussed the case with the resident. I agree with the resident's findings and plan as documented. SUBJECTIVE: Drain removed today Has no complaints ready to go home OBJECTIVE: Vital Signs Period Temp Pulse Resp BP Sys/Wood Pulse Ox Last 24 Hr 99.6 F-99.7 F 79-91 17-18 117-135/63-84 96-98 Physical Exam as per resident note Labs reviewed ASSESSMENT AND PLAN: 54 y/o F with Hx of Sigmoid Diverticulitis, Asthma, Obesity, Lumbar disc herniation who presents with LLQ abdominal pain Abdominal pain: Likely in setting of diverticulitis with localized pneumoper itoneum s/p OR with Sx for hartmans procedure with drain placement Pain now resolved Drain removed Patient will need to follow with Surgery about reversal of colostomy Tolerating PO Intake Stop Abx at this time Asthma Cont PRN nebs PPx HSQ Dispo: plan for discharge home today
[2020-06-24] MEDS ORDERED: PCA PUMP NR ONE (05:58)
[2020-06-24] MEDS: PANTOPRAZOLE SODIUM 40 MG VIAL IVPUSH SCH (10:12)
--- NOTE | 2020-06-24 11:52 | PN ---
Progress Note, Physician History of Present Illness: stable no complaints - Current Medication List Current Medications: Active Medications Albuterol Sulfate (Ventolin Hfa Inhaler -) 2 puff IH Q4H PRN PRN Reason: SHORT OF BREATH/WHEEZING Benzocaine/Menthol (Cepacol Lozenge -) 1 each MM PRN PRN PRN Reason: SORE THROAT Last Admin: 06/17/20 12:06 Dose: 1 each Documented by: Enoxaparin Sodium (Lovenox -) 40 mg SQ DAILY [facility] Lactated Ringer's (Lactated Ringers Solution) 1,000 ml in 1,000 mls @ 75 mls/hr IV ASDIR CHRISTINE Last Admin: 06/23/20 00:22 Dose: 75 mls/hr Documented by: Oxycodone HCl (Roxicodone -) 5 mg PO Q6H PRN PRN Reason: PAIN LEVEL 4 - 6 Pantoprazole Sodium (Protonix Iv) 40 mg IVPUSH DAILY [facility] Last Admin: 06/24/20 10:12 Dose: 40 mg Documented by: - Objective Vital Signs: Vital Signs Temperature 98.5 F 06/24/20 06:05 Pulse Rate 86 06/24/20 08:07 Respiratory Rate 18 06/24/20 08:07 Blood Pressure 129/73 06/24/20 08:07 O2 Sat by Pulse Oximetry (%) 97 06/24/20 08:07 Constitutional: Yes: No Distress, Calm Cardiovascular: Yes: S1, S2 Respiratory: Yes: Regular, CTA Bilaterally Gastrointestinal: Yes: Normal Bowel Sounds, Soft Musculoskeletal: Yes: WNL Extremities: Yes: WNL Wound/Incision: Yes: Clean/Dry Neurological: Yes: Alert, Oriented Psychiatric: Yes: Alert, Oriented Labs: CBC, BMP 06/23/20 07:15 06/23/20 07:15 INR, PTT INR 1.39 (0.83-1.09) H 06/15/20 10:45 Assessment/Plan Abscess of sigmoid colon due to diverticulitis (Acute) Asthma (Acute) Leukocytosis (Acute) Obesity (BMI 30-39.9) (Acute) Perforation of sigmoid colon due to diverticulitis (Acute) leukocytosis plan continue current mgmt stable
[2020-06-24] MEDS: ENOXAPARIN NA (PORCINE) 40 MG/0.4 ML DISP.SYRIN SQ SCH (12:19)
[2020-06-24] MEDS: oxyCODONE HCL 5 MG TABLET PO PRN ×2 (12:20→18:06)
[2020-06-24] MEDS: LACTATED RINGERS SOLUTION 1,000 ML/1,000 ML INFUS.BAG IV SCH (12:25)
[2020-06-24 13:46] LABS: PH,URINE >= 9.0 (5.0-8.0); URINE APPEARANCE CLEAR; URINE BILIRUBIN NEGATIVE (NEGATIVE); URINE COLOR YELLOW; URINE GLUCOSE (UA) NEGATIVE (NEGATIVE); URINE KETONE NEGATIVE (NEGATIVE); URINE LEUK ESTERASE NEGATIVE (NEGATIVE); URINE NITRITE NEGATIVE (NEGATIVE); URINE PROTEIN NEGATIVE (NEGATIVE); URINE UROBILINOGEN 0.2 mg/dL (0.2-1.0)
--- NOTE | 2020-06-24 15:12 | PN ---
Physical Exam: SUBJECTIVE: Patient seen and examined this morning, was discharged yesterday, however was not instructed on how to change wounds. Ptn was instructed today. OBJECTIVE: Vital Signs Period Temp Pulse Resp BP Sys/Wood Pulse Ox Last 24 Hr 98.5 F-100.0 F 84-96 18-20 114-140/69-85 95-97 GENERAL: The patient is awake, alert, and fully oriented, in no acute distress. HEAD: Normal with no signs of trauma. EYES: PERRL, extraocular movements intact, sclera anicteric, conjunctiva clear. No ptosis. ENT: Ears normal, nares patent, oropharynx clear without exudates, moist mucous membranes. NECK: Trachea midline, full range of motion, supple. LUNGS: Breath sounds equal, clear to auscultation bilaterally, no wheezes, no crackles, no accessory muscle use. HEART: Regular rate and rhythm, S1, S2 without murmur, rub or gallop. ABDOMEN: Colostomy bag leaking into wound dressing. Bag changed. Wound dr essing changed. Abdomen soft, nontender, nondistended, normoactive bowel sounds EXTREMITIES: 2+ pulses, warm, well-perfused, no edema. NEUROLOGICAL: Normal speech, gait not observed. PSYCH: Normal mood, normal affect. SKIN: Warm, dry, normal turgor, no rashes or lesions noted Laboratory Results - last 24 hr CBC, BMP 06/23/20 07:15 06/23/20 07:15 Active Medications Generic Name Dose Route Start Last Admin Trade Name Freq PRN Reason Stop Dose Admin Albuterol Sulfate 2 puff 06/16/20 16:20 Ventolin Hfa Inhaler - IH Q4H PRN SHORT OF BREATH/WHEEZING Benzocaine/Menthol 1 each 06/17/20 10:06 06/17/20 12:06 Cepacol Lozenge - MM 1 each PRN PRN Administration SORE THROAT Enoxaparin Sodium 40 mg 06/24/20 11:15 06/24/20 12:19 Lovenox - SQ 40 mg DAILY CHRISTINE Administration Lactated Ringer's 1,000 ml in 1,000 mls @ 75 mls/hr 06/18/20 09:50 06/24/20 12:25 Lactated Ringers Solution IV Not Given ASDIR CHRISTINE Oxycodone HCl 5 mg 06/24/20 11:07 06/24/20 12:20 Roxicodone - PO 5 mg Q6H PRN Administration PAIN LEVEL 4 - 6 Pantoprazole Sodium 40 mg 06/17/20 10:00 06/24/20 10:12 Protonix Iv IVPUSH 40 mg DAILY CHRISTINE Administration ASSESSMENT/PLAN: 54 yo F w/ PMHx of acute sigmoid diverticulitis (11/2018), asthma, obesity, and herniated disc (L4-L5 Dr. Bolton), presents with left lower quadrant abdominal pain. Admitted for recurrent diverticulitis w/ associated localized pneumoperitoneum within the adjacent mesentery. Additional 1.3 x 1.3 cm intramural abscess noted in sigmoid wall on imaging. RESOLVED: SEPSIS 2/2 ACUTE SIGMOID DIVERTICULTIS W/ CONTAINED PERFORATION -POD 8: Cody's procedure -Afebrile w/o WBC -Per Gen Surg: -LR @ 75 -OOB w/ PT -Incentive Spirometer -Oxycodone 5mg q6 PRN -FU Blood Cx: FINAL, No Growth -Abdominal Cx: FINAL, No Growth -UA (06/24): No pathology -Wound care instructions given to ptn, wound care service is now ready per SW NEW ELEVATED TEMPERATURE 100.0 -UA: Negative -CXR: No acute pathology NEW ONSET DYSURIA -Post void residual volume 124; Normal if age <65 is <50 -Possibly 2/2 recent surgery -Monitor for any signs of acute urinary retention. Straight cath if needed. HISTORY OF ASTHMA -Satting on RA -No wheezing on auscultation -c/w Albuterol 2puffs Q4 PRN FEN -LR @ 75 -Lytes -Regular diet PPx -DVT: Lovenox 40mg sq daily -GI: Protonix 40mg IV qdaily DISPO -Continue to monitor on medical/surgical floors, DC tomorrow Visit type - Emergency Visit Emergency Visit: No - New Patient This patient is new to me today: No - Critical Care Critical Care patient: No - Discharge Referral Referred to [facility] Med P.C.: No ATTENDING PHYSICIAN STATEMENT I saw and evaluated the patient. I reviewed the resident's note and discussed the case with the resident. I agree with the resident's findings and plan as documented. SUBJECTIVE: OBJECTIVE: ASSESSMENT AND PLAN:
--- NOTE | 2020-06-24 17:55 | PN ---
Teaching Attending Note Name of Resident: Ever Hathaway ATTENDING PHYSICIAN STATEMENT I saw and evaluated the patient. I reviewed the resident's note and discussed the case with the resident. I agree with the resident's findings and plan as documented. SUBJECTIVE: seen around 11 am no fever or chills today but had a low grade fever yesterday 's evening has pressure feeling in lower abd when she urinates, no dysuria. No N.V . passing liqid stool to the colostomy OBJECTIVE: NAD Awake, alert, cooperative CV: RRR. Lungs: CTAB Ext: no edema or erythema on upper or lower extremities Abd:soft, ND, Nl BS . Left sided colostomy bag which is clean intact and and with clean dry non erythematous skin around it . open mid line surgical wound which is interrupted by 2 sets of aidan ( 11 , then 2 aidan) base of the wounds with granulation tissue, and no purulent discharge . upper wound has some bleeding when bandage was removed. no surrounding erythema around the 3 parts of the wound. a small (1 cm ) horizontal cut, healing , slight erythema at the wound line, no discharge , to the right of the mid line wound. covered with clean gauze. ASSESSMENT AND PLAN: 54 y/o lady with h/o diverticulitis , Asthma, Obesity, Lumbar disc herniation who presented with abd painand was found to have diverticulitis with local perforation 1- Acute sigmoid colitis with localized perforationand intramural abscess 2- s/p Hartmen procedure 3- fever last night - add oxycodone - stop IVF - wound changed during rounds - cont diet - UA nad cxray were obtained, no PNA or UTI. monitor fever - bladder scan done with 165 cc residual, might explain her pressure feeling with urination . expect that to improve with ambulation and decreased inflammation - add lovenox - Monitor till tomorrow for recurrence of fever - seen by Id today, nO new recs - RN tought patient how to care for her colostomy. wound care to be shown
[2020-06-25] MEDS: oxyCODONE HCL 5 MG TABLET PO PRN ×2 (02:40→09:55)
[2020-06-25 08:40] LABS: BASO % 0.7 % (0-2.0); EOS % 1.9 % (0-4.5); HEMATOCRIT 30.5 % (32.4-45.2); HEMOGLOBIN 10.1 GM/dL (10.7-15.3); LYMPH % 16.7 % (8-40); MCH 26.2 pg (25.7-33.7); MCHC 33.2 g/dl (32.0-36.0); MEAN CELL VOLUME 78.9 fl (80-96); MEAN PLT VOLUME 7.1 fl (7.5-11.1); MONO % 12.6 % (3.8-10.2); NEUT % 68.1 % (42.8-82.8); PLATELET COUNT 494 K/MM3 (134-434); RBC 3.87 M/mm3 (3.60-5.2); RDW 17.4 % (11.6-15.6); WHITE BLOOD COUNT 10.8 K/mm3 (4.0-10.0)
[2020-06-25 08:52] LABS: POTASSIUM 4.4 mmol/L (3.5-5.1)
[2020-06-25 08:56] LABS: CALCIUM 8.9 mg/dL (8.5-10.1)
[2020-06-25 08:58] LABS: BLOOD UREA NITROGEN 6.6 mg/dL (7-18)
[2020-06-25 09:00] LABS: CREATININE 0.4 mg/dL (0.55-1.3)
[2020-06-25] MEDS: ENOXAPARIN NA (PORCINE) 40 MG/0.4 ML DISP.SYRIN SQ SCH (09:55)
[2020-06-25] MEDS: PANTOPRAZOLE SODIUM 40 MG VIAL IVPUSH SCH (09:55)
--- NOTE | 2020-06-25 10:00 | PN ---
Progress Note (short form) - Note Progress Note: Attending Surgeon POD#8 s/p Baltazar's procedure for Acute sigmoid diverticulitis w/ perforation and abscess Tolerating diet and having gas and stool from thecolostomy. OOB ambulating w/minimal discomfort VSS AF Abdo: soft, nt/nd, midline laparotomy incision with stables in place at umbilicus, proximal and distal portions of incision open, fascia intact, subcutaneous tissue clean with no erythema or drainage noted at either incision. IMP: doing well PLAN: -Cleared from surgery standpoint for discharge to office f/u and w/VNS. Vasu Church MD FACS
--- NOTE | 2020-06-25 11:35 | DS ---
Physical Exam: SUBJECTIVE: Patient seen and examined. No acute events overnight. Was taught how to do change wound. OBJECTIVE: Vital Signs Period Temp Pulse Resp BP Sys/Wood Pulse Ox Last 24 Hr 98.4 F-98.8 F 78-97 - 110-140/67-85 97-98 PHYSICAL EXAM GENERAL: The patient is awake, alert, and fully oriented, in no acute distress. HEENT: NCAT, EOMI, PERRL, moist mucus membranes LUNGS: CTA b/l, no wheezes or accessory muscle use. HEART: Regular rate and rhythm, S1, S2 without murmur. ABDOMEN: Colostomy visualized. Bag has brown liquid stool. No erythema around surrounding skin. Soft, non-distended. Bowel sounds present. EXTREMITIES: Warm, well-perfused, no edema SKIN: Midline surgical incision visualized. No overt bleeding seen. [place] intact. Dressing changed. Draining scant serosanguinous fluid. LABS Laboratory Results - last 24 hr 06/24/20 06/25/20 06/25/20 11:30 07:36 07:36 WBC 10.8 H RBC 3.87 Hgb 10.1 L Hct 30.5 L MCV 78.9 L MCH 26.2 MCHC 33.2 RDW 17.4 H Plt Count 494 H MPV 7.1 L Absolute Neuts (auto) 7.4 Neutrophils % 68.1 Lymphocytes % 16.7 D Monocytes % 12.6 H Eosinophils % 1.9 D Basophils % 0.7 Nucleated RBC % 0 Sodium 137 Potassium 4.4 Chloride 102 Carbon Dioxide 29 Anion Gap 6 L BUN 6.6 L Creatinine 0.4 L Est GFR (CKD-EPI)AfAm 135.90 Est GFR (CKD-EPI)NonAf 117.26 Random Glucose 103 Calcium 8.9 Urine Color Yellow Urine Appearance Clear Urine pH >= 9.0 H D Ur Specific [place] 1.007 L Urine Protein Negative Urine Glucose (UA) Negative Urine Ketones Negative Urine Blood Negative Urine Nitrite Negative Urine Bilirubin Negative Urine Urobilinogen 0.2 Ur Leukocyte Esterase Negative HOSPITAL COURSE: 54 yo F w/ PMH of acute sigmoid diverticulitis (11/2018), asthma, obesity, and herniated disc (L4-L5) presented to the ED with LLQ abdominal pain. CT A/P done and showed acute sigmoid diverticulitis with an associated small localized pneumoperitoneum within the adjacent mesentery. A probable 1.3 x 1.3 cm intramural abscess is seen within the inflamed sigmoid colon wall. There was trace pelvic free fluid. Pt admitted for sepsis secondary to acute sigmoid diverticulitis with contained perforation. Pt received Cody's procedure on 06/16/[address] Church. Pt tolerated procedure, was afebrile and without leukocytosis. Pt's pain was controlled. Colostomy bag was draining stool. Surgical site was without erythema or purulence. Blood culture and abdominal wound culture was without any bacterial growth. Pt was instructed on how to care for colostomy bag and wound. Pt is hemodynamically stable and medically optimized for discharge home. Pt will follow up with Dr. Church for further post-operative care. Date of Admission:06/15/20 Date of Discharge: 06/25/20 Minutes to complete discharge: 36 Discharge Summary Problems reviewed: Yes Reason For Visit: PERFORATION OF SIGMOID COLON DUE TO DIVERTICULITIS Current Active Problems Asthma (Chronic) Obesity (BMI 30-39.9) (Chronic) Condition: Stable - Instructions Diet, Activity, Other Instructions: YOUR VISIT You came to the hospital because you were experiencing fever and belly pain. You were admitted to the hospital for a condition called, "diverticulitis," which is an inflammation of your intestines. You were found to have a, "perforation," which is a hole in your intestines. Surgery was performed and your bowel was repaired. You now have a, "colostomy bag," which is a way for you to have bowel movements for the present time after your surgery. While here, you were also seen by an infectious disease doctor. Please follow up with your surgeon regarding the, "reversal" of your colostomy, which will complete the procedure. You are now stable and may return home. Also found during your stay: 1.) CAT Scan: Several, "hepatic cysts" that were unchanged from your previous imaging. You should discuss these with your primary care provider. 2.) CAT Scan: Mild deformity of one of the bones in your lower back which could result in back pain. You should discuss this with your primary care provider. MEDICATIONS take oxyocdone 2.5 mg every 6 hours as needed for severe pain. please do not drive while on oxycodone. do not climb ladders and be casreful on stairs WOUND CARE It is recommended that our perform daily dressing changes with wet to dry dressings for your midline abdominal incision ( wet it a little with normal saline ) . Please provide these instructions to your visiting nursing service and wound care team. The small healing cut to the Right of the mid ine wound is to be covered by a dry clean gauze with tape , change daily Colostomy Instructions: See below ADDITIONAL CARE -Please make an appointment to see Dr. Church in 7-10 days following your discharge home. Please call: [phone] -Please make an appointment to see a primary care provider 2 week from today. Since you do not have one, you can call to schedule an appointment at the [facility]' clinic, located at [address] [place] [address]. If you would like to continue seeing Dr. Ever Hathaway, please ask for a Saturday morning appointment. ADDITIONAL INFORMATION -Please call [phone] or come directly to the emergency department if you experience recurrence of the symptoms that brought you to the hospital, unusual headache, vision change, shortness of breath, chest pain, numbness, tingling, loss of alertness/awareness, loss of function, unusual bleeding or any alarming symptoms. Dr. Church Post-Operative Discharge Instructions Physical activity Resume your normal everyday activity as tolerated no heavy lifting or exercise until seen by your surgeon. You may walk unlimited amounts of and climb stairs. You may resume driving the car when you feel safe and comfortable behind the wheel. Diet There are no dietary restrictions. Eat healthy, high-fiber foods. Drink 6 to 8 glasses of liquid each day. This will assist in keeping your bowels are regular. Pain management You may take Tylenol or acetaminophen or Ibuprofen (for example, Motrin, Advil etc.) Any pain prescription medication ordered should be taken as prescribed for moderate to severe pain. Call Dr. Church for any of the following: Severe pain not relieved by medication Fever of 101 or higher Excessive bleeding or drainage on dressing Inability to urinate Call the office at [phone] for a post operative appointment in 7 - 10 days. [facility] The Drug Utilization Report below displays all of the controlled substance prescriptions, if any, that your patient has filled in the last twelve months. The information displayed on this report is compiled from pharmacy submissions to the Department, and accurately reflects the information as submitted by the pharmacies. This report was requested by: Guero Maguire | Reference #: [id number] Changing Your Ostomy Pouch Home care: Remove the used pouch and empty into the toilet. Starting at the upper edge of the skin barrier, carefully push the skin away from the barrier with one hand. Slowly peel back the skin barrier with the other hand. Peel all the way around the skin barrier until the pouch comes off. Seal the pouch in a plastic bag. Then put it in a second plastic bag. Throw it away in a trash bin. Clean around the stoma: Wipe any stool off the skin around the stoma with toilet paper. Clean the skin with warm water and a soft washcloth. Wash right up to the edge of the stoma. Pat the skin dry with a clean towel. If needed, put on extra skin protection, such as moisture barrier cream or powder. Put on the new pouch: Peel the backing off the skin barrier. Place the precut skin barrier over the stoma. If you dont use a pouch with a precut skin barrier, size and cut the opening (1/16 inch bigger than the stoma) and peel the backing off the skin barrier. Carefully place it over the stoma. The pouch opening should point toward your feet. If using a pouch with a clamp at the base, it may be easier to apply the clamp to the pouch first. Snap the pouch onto the barrier flange (if you use a 2-piece pouch). Press the barrier against your skin. Hold it in place for 45 seconds. Clamp the tail of the pouch (if drainable or reusable). Wash your hands with clean, warm or cold water for at least 20 seconds when you are done. Referrals: Vasu Church MD [Staff Physician] - 1 Week Disposition: HOME - Home Medications Comprehensive Discharge Medication List: Ambulatory Orders NK [No Known Home Medication] 06/15/20 This patient is new to me today: No Emergency Visit: Yes ED Registration Date: 06/15/20 Care time: The patient presented to the Emergency Department on the above date and was hospitalized for further evaluation of their emergent condition. Critical Care patient: No - Discharge Referral Referred to [facility] Med P.C.: No ATTENDING PHYSICIAN STATEMENT I saw and evaluated the patient. I reviewed the resident's note and discussed the case with the resident. I agree with the resident's findings and plan as documented. SUBJECTIVE: OBJECTIVE: ASSESSMENT AND PLAN:
--- NOTE | 2020-06-25 12:11 | PN ---
Progress Note, Physician History of Present Illness: stable no new issues - Current Medication List Current Medications: Active Medications Albuterol Sulfate (Ventolin Hfa Inhaler -) 2 puff IH Q4H PRN PRN Reason: SHORT OF BREATH/WHEEZING Benzocaine/Menthol (Cepacol Lozenge -) 1 each MM PRN PRN PRN Reason: SORE THROAT Last Admin: 06/17/20 12:06 Dose: 1 each Documented by: Enoxaparin Sodium (Lovenox -) 40 mg SQ DAILY [facility] Last Admin: 06/25/20 09:55 Dose: 40 mg Documented by: Oxycodone HCl (Roxicodone -) 5 mg PO Q6H PRN PRN Reason: PAIN LEVEL 4 - 6 Last Admin: 06/25/20 09:55 Dose: 5 mg Documented by: Pantoprazole Sodium (Protonix Iv) 40 mg IVPUSH DAILY [facility] Last Admin: 06/25/20 09:55 Dose: 40 mg Documented by: - Objective Vital Signs: Vital Signs Temperature 99.5 F 06/25/20 10:00 Pulse Rate 86 06/25/20 10:00 Respiratory Rate 06/25/20 10:00 Blood Pressure 100/76 06/25/20 10:00 O2 Sat by Pulse Oximetry (%) 99 06/25/20 10:00 Constitutional: Yes: No Distress, Calm Cardiovascular: Yes: S1, S2 Respiratory: Yes: Regular, CTA Bilaterally Gastrointestinal: Yes: Normal Bowel Sounds, Soft Musculoskeletal: Yes: WNL Extremities: Yes: WNL Neurological: Yes: Alert, Oriented Psychiatric: Yes: Alert, Oriented Labs: CBC, BMP 06/25/20 07:36 06/25/20 07:36 INR, PTT INR 1.39 (0.83-1.09) H 06/15/20 10:45 Assessment/Plan Abscess of sigmoid colon due to diverticulitis (Acute) Asthma (Acute) Leukocytosis (Acute) Obesity (BMI 30-39.9) (Acute) Perforation of sigmoid colon due to diverticulitis (Acute) leukocytosis plan continue current mgmt stable
--- NOTE | 2020-06-25 13:00 | PN ---
Teaching Attending Note Name of Resident: Dorothea Roca ATTENDING PHYSICIAN STATEMENT I saw and evaluated the patient. I reviewed the resident's note and discussed the case with the resident. I agree with the resident's findings and plan as documented. SUBJECTIVE: no fever or chills .minimal abd pain, no [place] , no N/V . she tolerated her diet . bladder pressure is better OBJECTIVE: NAD Awake, alert, cooperative CV: RRR. Lungs: CTAB Ext: no edema or erythema on upper or lower extremities. Abd: soft, ND, Nl BS. Left sided colostomy bag with clean surrounding skinm, liquid brown stool in it open mid line surgical wound which is interrupted by 2 sets of aidan ( 11 , then 2 aidan) base of the wounds with granulation tissue, and no purulent discharge . no surrounding erythema around the 3 parts of the wound. a small (1 cm ) horizontal cut, healing , no erythema today , no discharge , to the right of the mid line wound. ASSESSMENT AND PLAN: 54 y/o lady with h/o diverticulitis , Asthma, Obesity, Lumbar disc herniation who presented with abd painand was found to have diverticulitis with local p erforation 1- Acute sigmoid colitis with localized perforation and intramural abscess 2- s/p Hartmen procedure 3- fever, did not recur plan : - case was dw dr. [place]. no need fro Abx as fever did not recur and work up is negative to date - f/u with her surgeon . and pcp . need CBC in few days - wet to dry dressing daily to the abd wound. this was d/w dr. lee today - she was encouraged to walk so her bladder gains complete function - she was tought how to care for her colostomy and wound. dc home today with VNS. she is to be given some supplies for wound care and colostomy.
[2020-06-25] MEDS ORDERED: ACETAMINOPHEN 325 MG TABLET (FP) PO ONE (14:11)
[2020-06-25 15:33] VITALS: BP 113/77; PULSE 88; TEMP 98.8
--- NOTE | 2020-06-27 09:15 | OP ---
DATE OF OPERATION: 06/16/2020 PREOPERATIVE DIAGNOSIS: Acute sigmoid diverticulitis with contained perforation. POSTOPERATIVE DIAGNOSIS: Acute sigmoid diverticulitis with contained perforation. PROCEDURE: Cody's procedure (sigmoid colon resection and end colostomy). SURGEON: Vasu Church MD DAMPPROOFER: Guero Maguire PA-C ANESTHESIA: General. OPERATIVE FINDINGS: There was a mass involving the sigmoid colon consistent with [id number] diverticulitis and possible recent or remote perforation with abscess formation. The rest of the findings were unremarkable. PROCEDURE: The patient was placed on the operating table in the supine position and, after the induction of general anesthesia and placement of a Harmon catheter and sequential compression devices on the patient's lower extremities, the abdomen was prepped with ChloraPrep and draped in a sterile fashion. A timeout was taken and the peritoneal cavity was entered through a midline incision. The previously noted findings were observed. The sigmoid colon was bluntly mobilized distally away from the posterior uterus. A window was made in the mesentery of the distal sigmoid and then the TA 90 stapling device was placed across the sigmoid and 2 Skye clamps were placed proximally and the sigmoid colon divided after the stapling device was fired. Next, the mesentery was scored and sequentially divided using a combination of the LigaSure device and/or Irina clamps and the resultant pedicles ligated with 2-0 and/or 0 silk suture. Laterally the colon was mobilized along the lateral peritoneal reflection as well with the LigaSure device all the way up to just below the splenic flexure. Proximally to the area of acute pathology in the sigmoid again a window was made using blunt dissection in the mesentery and the colon divided there using a TA stapling device proximally and 2 Skye clamps distally. The remainder of the mesentery was divided and then the specimen was passed off the operative field and sent for pathological examination. At this point it was determined that there was adequate length without tension and with adequate blood supply to bring the transected proximal end of the colon through the abdominal wall to create the colostomy. Next, a disk of skin was removed midway between the umbilicus and left anterior superior iliac spine using electrocautery, creating an opening in the abdominal wall 2 fingerbreadths in greatest dimension for the colostomy. The muscle was bluntly divided and the fascia scored in a cross pattern. The colon was then brought to the abdominal wall and anchored there temporarily with [place] clamps. Again, there was no tension and no further mobilization was necessary. Next, copious irrigation was carried out with 3 L of normal saline and hemostasis secured with electrocautery. A 10 mm Primo-Obrien drain was placed through a stab wound on the right side of the lower midline incision and it was placed in the pelvis and anchored to the skin with 2-0 silk suture. Hemostasis was checked for again and noted to be good and the NG tube was confirmed with correct placement in the stomach. Next, closure of the midline incision was carried out using continuous 0 looped Maxon suture. The subcutaneous tissue was irrigated and hemostasis checked for and noted to be good, and then the skin edges in area around the umbilicus were reapproximated using surgical aidan. The wound was then packed with 1 inch Iodoform gauze and covered with a sterile towel. Next, the colostomy was matured by excising the staple line and maturing the colostomy to the abdominal wall with interrupted 3-0 Vicryl sutures. A colostomy appliance of appropriate size was then placed and then the midline wound dressed with further dry sterile dressings and Medipore tape. A Biopatch was placed around the drain site and the drain was connected to bulb suction. The procedure was terminated at this point and the patient transferred to the postanesthesia care unit in stable condition awake and alert. At the completion of the procedure needle, instrument and sponge counts were verified as correct. ESTIMATED BLOOD LOSS: 100 mL REPLACEMENTS: Crystalloid. DRAINS: One 10-mm Primo-Obrien in the pelvis. SPECIMEN: Portion of sigmoid colon to Pathology. I, Vasu Church, was physically present in the operating room from the time the patient was placed on the operating table until she was transferred to the postanesthesia care unit in my accompaniment. MD KIARA Alexandra/[id number] MTDD
== END 2020-06-25 17:56 | disposition home or self-care (01) | DRG 854 ==
LOC: JER 09:26 → JERBED 17:07 → J6S 06-16 17:55
PROVIDERS: ATTEND Internal Medicine
PROC: 0D1N0Z4 Bypass Sigmoid Colon to Cutaneous, Open Approach (ICD-10-PCS; 2020-06-16)
PROC: 0DTN0ZZ Resection of Sigmoid Colon, Open Approach (ICD-10-PCS; principal; 2020-06-16 08:30)
DX: A41.89 Other specified sepsis (principal); K57.20 Diverticulitis of large intestine with perforation and abscess without bleeding; J45.909 Unspecified asthma, uncomplicated; E66.9 Obesity, unspecified; Z68.33 Body mass index [BMI] 33.0-33.9, adult; M43.17 Spondylolisthesis, lumbosacral region; M51.36 Other intervertebral disc degeneration, lumbar region; R50.9 Fever, unspecified; R10.32 Left lower quadrant pain
CPT/HCPCS: 36415; 71045-TC-FY; 74177-TC; 80048; 80053; 81003; 82550; 82553; 83690; 83735; 84100; 84484; 85025; 85027; 85610; 85730; 86850; 86900; 86901; 87040; 87070; 87086; 87205; 88307-TC; 93005; 93010; 94010; 94760; 97116-GP; 97162-GP; 99285-25; C9803; J0131; J1644; Q9967; U0003

== ENCOUNTER 2020-11-24 05:16 | Inpatient (IN) | payer BC ==
[2020-11-23 10:06] VITALS: BMI 31.6
[2020-11-24] MEDS ORDERED: ALVIMOPAN 12 MG CAP PO ONE (10:30)
[2020-11-24] MEDS ORDERED: ERTAPENEM SODIUM 1 GM in SODIUM CHLORIDE 50 ML IVPB ONE (10:30)
[2020-12-28] MEDS ORDERED: ALVIMOPAN 12 MG CAP PO ONE (07:00)
[2020-12-29] MEDS ORDERED: ERTAPENEM SODIUM 1 GM in SODIUM CHLORIDE 50 ML IVPB ONE (07:00)
[2020-12-29 10:29] LABS: HEMOGLOBIN 14.2 GM/dL (10.7-15.3); MCH 29.3 pg (25.7-33.7); MCHC 33.7 g/dl (32.0-36.0); MEAN CELL VOLUME 86.8 fl (80-96); MEAN PLT VOLUME 7.2 fl (7.5-11.1); PLATELET COUNT 405 K/MM3 (134-434); RBC 4.84 M/mm3 (3.60-5.2); RDW 15.6 % (11.6-15.6); WHITE BLOOD COUNT 8.4 K/mm3 (4.0-10.0)
[2020-12-29] MEDS ORDERED: ALVIMOPAN 12 MG CAP PO ONE (10:40)
[2020-12-29] MEDS ORDERED: ERTAPENEM SODIUM 1 GM VIAL ONE (10:41)
[2020-12-29 10:47] LABS: INR 1.13 (0.83-1.09); PROTHROMBIN TIME (PATIENT) 13.9 SEC (9.7-13.0)
[2020-12-29 10:49] LABS: ACTIVATED PTT 34.6 SECONDS (25.2-36.5)
[2020-12-29 10:50] LABS: BLOOD UREA NITROGEN 16.8 mg/dL (7-18); CALCIUM 9.7 mg/dL (8.5-10.1)
[2020-12-29 10:53] LABS: CREATININE 0.8 mg/dL (0.55-1.3)
[2020-12-30] MEDS ORDERED: ONDANSETRON 4 MG/2 ML VIAL ONE ×2 (07:10→15:15)
[2020-12-30] MEDS ORDERED: LIDOCAINE HCL/PF 2% SDV 5ML VIAL ONE (07:10)
[2020-12-30] MEDS ORDERED: DEXAMETHASONE SOD PHOSPHATE 4 MG/1 ML VIAL ONE (07:10)
[2020-12-30] MEDS ORDERED: PROPOFOL 20 ML ONE ×2 (07:11→10:57)
[2020-12-30] MEDS ORDERED: SUCCINYLCHOLINE CHLORIDE 200 MG/10 ML SYRINGE ONE (07:11)
[2020-12-30] MEDS ORDERED: fentaNYL CITRATE 250 MCG/5 ML VIAL ONE (07:11)
[2020-12-30] MEDS ORDERED: ROCURONIUM BROMIDE 100 MG/10 ML VIAL ONE ×2 (07:11→09:07)
[2020-12-30] MEDS ORDERED: MIDAZOLAM HCL 2 MG/2 ML SINGLE DOSE VIAL ONE (07:11)
[2020-12-30] MEDS ORDERED: ERTAPENEM SODIUM 1 GM VIAL IVPB ONE (07:55)
[2020-12-30] MEDS ORDERED: ERTAPENEM SODIUM 1 GM in SODIUM CHLORIDE 50 ML IVPB ONE (08:15)
[2020-12-30] MEDS ORDERED: HYDROmorphone HCl 2 MG/ML VIAL ONE (09:09)
[2020-12-30] MEDS ORDERED: GLYCOPYRROLATE 0.2 MG/1 ML VIAL ONE (10:43)
[2020-12-30] MEDS ORDERED: NEOSTIGMINE METHYLSULFATE 0.5 MG/ML - 10 ML MDV ONE (10:43)
[2020-12-30] MEDS ORDERED: ACETAMINOPHEN INJECTION 100 ML IVPB ONE (11:05)
[2020-12-30] MEDS ORDERED: MINERAL OIL/PETROLATUM,WHITE 3.5 GM TUBE ONE (11:07)
[2020-12-30] MEDS ORDERED: ONDANSETRON 4 MG/2 ML VIAL IVPUSH PRN (12:03)
[2020-12-30] MEDS ORDERED: HYDROmorphone *PCA* 10MG/50ML DISP.SYRIN ONE (12:09)
[2020-12-30] MEDS: SODIUM CHLORIDE 1,000 ML IV SCH ×2 (12:15→22:07)
[2020-12-30] MEDS: HYDROmorphone *PCA* 10MG/50ML DISP.SYRIN PCA PRN (12:15)
[2020-12-30] MEDS: ONDANSETRON 4 MG/2 ML VIAL IVPUSH PRN ×3 (15:10→22:08)
[2020-12-30] MEDS: ACETAMINOPHEN 1000 MG/100 ML VIAL (NON FORMULARY) IVPB SCH (18:17)
[2020-12-31] MEDS: SODIUM CHLORIDE 1,000 ML IV SCH ×2 (00:36→10:10)
[2020-12-31] MEDS: ACETAMINOPHEN 1000 MG/100 ML VIAL (NON FORMULARY) IVPB SCH ×2 (00:39→06:31)
[2020-12-31] MEDS: ONDANSETRON 4 MG/2 ML VIAL IVPUSH PRN (09:35)
[2020-12-31] MEDS: ENOXAPARIN NA (PORCINE) 40 MG/0.4 ML DISP.SYRIN SQ SCH (09:39)
[2020-12-31 09:51] LABS: BASO % 0.1 % (0-2.0); EOS % 0.3 % (0-4.5); HEMATOCRIT 36.4 % (32.4-45.2); LYMPH % 16.2 % (8-40); MCHC 32.9 g/dl (32.0-36.0); MEAN CELL VOLUME 88.1 fl (80-96); MEAN PLT VOLUME 7.5 fl (7.5-11.1); MONO % 13.5 % (3.8-10.2); NEUT % 69.9 % (42.8-82.8); PLATELET COUNT 333 K/MM3 (134-434); RBC 4.13 M/mm3 (3.60-5.2); RDW 15.6 % (11.6-15.6)
[2020-12-31 10:03] LABS: ALBUMIN 2.8 g/dl (3.4-5.0); BLOOD UREA NITROGEN 10.7 mg/dL (7-18); CALCIUM 8.7 mg/dL (8.5-10.1); MAGNESIUM 2.1 mg/dL (1.8-2.4)
[2020-12-31 10:07] LABS: CREATININE 0.5 mg/dL (0.55-1.3); PHOSPHOROUS 2.9 mg/dL (2.5-4.9)
[2020-12-31 10:08] LABS: BILIRUBIN,TOTAL 0.5 mg/dL (0.2-1); TOT PROT 5.4 g/dl (6.4-8.2)
[2020-12-31] MEDS: ALVIMOPAN 12 MG CAP PO SCH ×2 (10:11→21:13)
[2020-12-31] MEDS ORDERED: FAMOTIDINE 20 MG/50 ML IVPB 20 MG/50 ML MG IVPB ONE (13:46)
[2020-12-31] MEDS ORDERED: PCA PUMP NR ONE (16:25)
[2020-12-31] MEDS: HYDROmorphone *PCA* 10MG/50ML DISP.SYRIN PCA PRN (16:27)
[2020-12-31] MEDS ORDERED: PT OWN MED DRAWER 7, Y5N ONE (21:04)
[2020-12-31] MEDS ORDERED: ONDANSETRON 4 MG/2 ML VIAL IVPUSH ONE (22:04)
[2021-01-01] MEDS: SODIUM CHLORIDE 1,000 ML IV SCH (00:09)
[2021-01-01 09:07] LABS: HEMATOCRIT 34.5 % (32.4-45.2); HEMOGLOBIN 11.4 GM/dL (10.7-15.3); MCH 29.3 pg (25.7-33.7); MCHC 33.1 g/dl (32.0-36.0); MEAN CELL VOLUME 88.3 fl (80-96); MEAN PLT VOLUME 7.3 fl (7.5-11.1); PLATELET COUNT 306 K/MM3 (134-434); RBC 3.91 M/mm3 (3.60-5.2); RDW 15.7 % (11.6-15.6); WHITE BLOOD COUNT 9.4 K/mm3 (4.0-10.0)
[2021-01-01 09:38] LABS: BLOOD UREA NITROGEN 9.7 mg/dL (7-18); MAGNESIUM 1.9 mg/dL (1.8-2.4)
[2021-01-01 09:41] LABS: CREATININE 0.4 mg/dL (0.55-1.3); PHOSPHOROUS 2.9 mg/dL (2.5-4.9)
[2021-01-01] MEDS ORDERED: PT OWN MED DRAWER 7, Y5N ONE ×3 (10:34→21:55)
[2021-01-01] MEDS: ENOXAPARIN NA (PORCINE) 40 MG/0.4 ML DISP.SYRIN SQ SCH (10:45)
[2021-01-01] MEDS: ALVIMOPAN 12 MG CAP PO SCH ×2 (10:46→22:17)
[2021-01-01] MEDS: PANTOPRAZOLE SODIUM 40 MG VIAL IVPUSH SCH (18:00)
[2021-01-02] MEDS ORDERED: PCA PUMP NR ONE ×2 (00:43→23:10)
[2021-01-02] MEDS: SODIUM CHLORIDE 1,000 ML IV SCH (00:57)
[2021-01-02 09:31] LABS: BASO % 0.3 % (0-2.0); EOS % 1.5 % (0-4.5); HEMATOCRIT 33.2 % (32.4-45.2); HEMOGLOBIN 11.2 GM/dL (10.7-15.3); MCH 29.7 pg (25.7-33.7); MCHC 33.7 g/dl (32.0-36.0); MEAN CELL VOLUME 88.2 fl (80-96); MEAN PLT VOLUME 7.6 fl (7.5-11.1); MONO % 12.5 % (3.8-10.2); NEUT % 69.7 % (42.8-82.8); PLATELET COUNT 284 K/MM3 (134-434); RBC 3.76 M/mm3 (3.60-5.2); RDW 15.8 % (11.6-15.6); WHITE BLOOD COUNT 6.9 K/mm3 (4.0-10.0)
[2021-01-02 10:01] LABS: ALBUMIN 2.5 g/dl (3.4-5.0); BLOOD UREA NITROGEN 6.3 mg/dL (7-18); CALCIUM 8.7 mg/dL (8.5-10.1)
[2021-01-02 10:04] LABS: CREATININE 0.4 mg/dL (0.55-1.3)
[2021-01-02 10:05] LABS: BILIRUBIN,TOTAL 0.6 mg/dL (0.2-1); TOT PROT 5.6 g/dl (6.4-8.2)
[2021-01-02] MEDS ORDERED: SODIUM PHOSPHATE IVPB ONE (10:05)
[2021-01-02] MEDS ORDERED: WATER IVPB ONE (10:05)
[2021-01-02] MEDS ORDERED: DEXTROSE IVPB ONE (10:05)
[2021-01-02] MEDS ORDERED: PT OWN MED DRAWER 7, Y5N ONE (10:13)
[2021-01-02] MEDS ORDERED: SODIUM PHOSPHATE - 15 MM in DEXTROSE 5%-WATER - 250 ML IVPB SCH (10:20)
[2021-01-02] MEDS: ALVIMOPAN 12 MG CAP PO SCH (10:21)
[2021-01-02] MEDS: ENOXAPARIN NA (PORCINE) 40 MG/0.4 ML DISP.SYRIN SQ SCH (10:21)
[2021-01-02] MEDS: PANTOPRAZOLE SODIUM 40 MG VIAL IVPUSH SCH (10:33)
[2021-01-02] MEDS ORDERED: ACETAMINOPHEN 1000 MG/100 ML VIAL (NON FORMULARY) IVPB PRN (14:13)
[2021-01-02] MEDS ORDERED: MORPHINE SULFATE 2 MG/ML VIAL IVPUSH PRN (14:14)
[2021-01-02] MEDS ORDERED: HYDROmorphone *PCA* 10MG/50ML DISP.SYRIN PCA SCH (21:30)
[2021-01-03] MEDS: SODIUM CHLORIDE 1,000 ML IV SCH (03:36)
[2021-01-03 08:59] LABS: HEMATOCRIT 34.3 % (32.4-45.2); HEMOGLOBIN 11.4 GM/dL (10.7-15.3); MCH 29.4 pg (25.7-33.7); MCHC 33.4 g/dl (32.0-36.0); MEAN PLT VOLUME 7.4 fl (7.5-11.1); PLATELET COUNT 334 K/MM3 (134-434); RDW 15.3 % (11.6-15.6); WHITE BLOOD COUNT 6.1 K/mm3 (4.0-10.0)
[2021-01-03 09:20] LABS: BLOOD UREA NITROGEN 5.9 mg/dL (7-18); CALCIUM 8.8 mg/dL (8.5-10.1)
[2021-01-03 09:21] LABS: MAGNESIUM 2.1 mg/dL (1.8-2.4)
[2021-01-03 09:23] LABS: CREATININE 0.3 mg/dL (0.55-1.3)
[2021-01-03 09:24] LABS: PHOSPHOROUS 2.9 mg/dL (2.5-4.9)
[2021-01-03] MEDS: PANTOPRAZOLE SODIUM 40 MG VIAL IVPUSH SCH (10:39)
[2021-01-03] MEDS: ENOXAPARIN NA (PORCINE) 40 MG/0.4 ML DISP.SYRIN SQ SCH (10:39)
[2021-01-03] MEDS ORDERED: ACETAMINOPHEN 325 MG TABLET (FP) PO PRN ×2 (12:55→14:40)
[2021-01-03] MEDS ORDERED: oxyCODONE HCL 5 MG TABLET PO PRN (12:55)
[2021-01-03] MEDS ORDERED: PCA PUMP NR ONE (13:46)
[2021-01-04] MEDS: ACETAMINOPHEN 500 MG TABLET (FP) PO PRN ×2 (03:42→10:51)
[2021-01-04 08:36] LABS: HEMATOCRIT 35.2 % (32.4-45.2); HEMOGLOBIN 11.7 GM/dL (10.7-15.3); MCH 29.2 pg (25.7-33.7); MCHC 33.2 g/dl (32.0-36.0); PLATELET COUNT 364 K/MM3 (134-434); RDW 15.7 % (11.6-15.6); WHITE BLOOD COUNT 5.5 K/mm3 (4.0-10.0)
[2021-01-04 09:12] LABS: BLOOD UREA NITROGEN 8.5 mg/dL (7-18); CALCIUM 9.1 mg/dL (8.5-10.1)
[2021-01-04 09:14] LABS: MAGNESIUM 2.1 mg/dL (1.8-2.4)
[2021-01-04 09:16] LABS: CREATININE 0.4 mg/dL (0.55-1.3); PHOSPHOROUS 3.9 mg/dL (2.5-4.9)
[2021-01-04] MEDS ORDERED: DOCUSATE SODIUM 100 MG CAPSULE (FP) PO SCH (10:00)
[2021-01-04] MEDS: PANTOPRAZOLE SODIUM 40 MG VIAL IVPUSH SCH (10:52)
[2021-01-04] MEDS: ENOXAPARIN NA (PORCINE) 40 MG/0.4 ML DISP.SYRIN SQ SCH (10:52)
[2021-01-04 13:25] VITALS: BP 118/73; PULSE 102; TEMP 98.4
== END 2021-01-04 15:49 | disposition home or self-care (01) | DRG 346 ==
LOC: J2C 05:16 → UNDOADMIN 05:16 → J2C 12-29 04:16 → J6S 12-29 08:00
PROVIDERS: ADMIT Surgery; ATTEND Student in an Organized Health Care Education/Training Program
PROC: 0DJD8ZZ Inspection of Lower Intestinal Tract, Via Natural or Artificial Opening Endoscopic (ICD-10-PCS; 2020-12-30)
PROC: 0DSN0ZZ Reposition Sigmoid Colon, Open Approach (ICD-10-PCS; principal; 2020-12-30 07:30)
DX: Z43.3 Encounter for attention to colostomy (principal); J45.909 Unspecified asthma, uncomplicated; M43.17 Spondylolisthesis, lumbosacral region; E66.9 Obesity, unspecified; Z68.31 Body mass index [BMI] 31.0-31.9, adult
CPT/HCPCS: 36415; 80048; 80053; 80061; 83036; 83721; 83735; 84100; 85025; 85027; 85610; 85730; 86850; 86900; 86901; 88304-TC; 94010; 94760; 97116-GP; 97162-GP; J0131

== ENCOUNTER 2021-03-22 13:57 | Emergency (ER) | payer BC ==
[2021-03-22 14:20] VITALS: BP 124/94; PULSE 100; TEMP 98.7; BMI 32.1
[2021-03-22] MEDS ORDERED: SODIUM CHLORIDE 0.9% 500 ML INFUS.BAG IV ONE (15:20)
[2021-03-22] MEDS ORDERED: ACETAMINOPHEN 1000 MG/100 ML VIAL (NON FORMULARY) IVPB ONE (15:21)
[2021-03-22] MEDS ORDERED: ACETAMINOPHEN INJECTION 100 ML IVPB ONE (15:51)
[2021-03-22 17:14] LABS: BASO % 0.5 % (0-2.0); EOS % 0.9 % (0-4.5); HEMATOCRIT 33.9 % (32.4-45.2); HEMOGLOBIN 10.9 GM/dL (10.7-15.3); LYMPH % 26.8 % (8-40); MCH 26.6 pg (25.7-33.7); MCHC 32.2 g/dl (32.0-36.0); MEAN CELL VOLUME 82.6 fl (80-96); MEAN PLT VOLUME 7.1 fl (7.5-11.1); MONO % 8.7 % (3.8-10.2); NEUT % 63.1 % (42.8-82.8); PLATELET COUNT 461 10^3/uL (134-434); RDW 15.3 % (11.6-15.6); WHITE BLOOD COUNT 8.5 K/mm3 (4.0-10.0)
[2021-03-22 17:38] LABS: BLOOD UREA NITROGEN 18.4 mg/dL (7-18)
[2021-03-22 17:39] LABS: ALBUMIN 4.1 g/dl (3.4-5.0)
[2021-03-22 17:41] LABS: CREATININE 0.6 mg/dL (0.55-1.3)
[2021-03-22 17:42] LABS: TOT PROT 7.6 g/dl (6.4-8.2)
[2021-03-22 17:49] LABS: BILIRUBIN,TOTAL 0.2 mg/dL (0.2-1)
[2021-03-22 18:34] LABS: EPI CELLS 21 /uL (0-25.1); HYALINE CASTS 0 /uL (0-3.1); PH,URINE 6.5 (5.0-8.0); URINE APPEARANCE CLEAR; URINE BACTERIA 199 /uL (0-1359); URINE BILIRUBIN NEGATIVE (NEGATIVE); URINE COLOR YELLOW; URINE GLUCOSE (UA) NEGATIVE (NEGATIVE); URINE KETONE NEGATIVE (NEGATIVE); URINE LEUK ESTERASE TRACE (NEGATIVE); URINE NITRITE NEGATIVE (NEGATIVE); URINE PROTEIN NEGATIVE (NEGATIVE); URINE RBC 15 /uL (0-23.9); URINE UROBILINOGEN 0.2 mg/dL (0.2-1.0); URINE WBC 27 /uL (0-25.8)
== END 2021-03-22 21:40 | disposition home or self-care (01) ==
LOC: JER 13:57
PROC: 3E0333Z Introduction of Anti-inflammatory into Peripheral Vein, Percutaneous Approach (ICD-10-PCS; principal; 2021-03-22)
DX: R10.32 Left lower quadrant pain (principal)
CPT/HCPCS: 36415; 74177-TC; 80053; 81003; 83690; 85025; 99285-25; J0131; Q9967

== ENCOUNTER 2021-12-24 06:18 | Inpatient (IN) | payer BC ==
[2021-12-24] MEDS ORDERED: ONDANSETRON 4 MG/2 ML VIAL IVPUSH ONE (07:36)
[2021-12-24] MEDS ORDERED: morphine SULFATE 4 MG/ML VIAL IVPUSH ONE (07:36)
[2021-12-24] MEDS ORDERED: morphine SULFATE 4 MG/ML VIAL ONE ×2 (07:42→11:25)
[2021-12-24] MEDS ORDERED: ONDANSETRON 4 MG/2 ML VIAL ONE (07:42)
[2021-12-24 08:42] LABS: BASO % 1.1 % (0-2.0); EOS % 1.1 % (0-4.5); HEMATOCRIT 24.4 % (32.4-45.2); HEMOGLOBIN 7.3 GM/dL (10.7-15.3); LYMPH % 21.3 % (8-40); MCHC 29.8 g/dl (32.0-36.0); MEAN CELL VOLUME 61.8 fl (80-96); MEAN PLT VOLUME 6.3 fl (7.5-11.1); MONO % 11.5 % (3.8-10.2); PLATELET COUNT 530 10^3/uL (134-434); RBC 3.95 M/mm3 (3.60-5.2); RDW 19.5 % (11.6-15.6); WHITE BLOOD COUNT 6.9 K/mm3 (4.0-10.0)
[2021-12-24 08:55] LABS: EPI CELLS >36 /uL (0-25.1); HYALINE CASTS 2 /uL (0-3.1); PH,URINE 5.5 (5.0-8.0); URINE APPEARANCE CLEAR; URINE BACTERIA 1693 /uL (0-1359); URINE BILIRUBIN NEGATIVE (NEGATIVE); URINE COLOR YELLOW; URINE GLUCOSE (UA) NEGATIVE (NEGATIVE); URINE KETONE TRACE (NEGATIVE); URINE LEUK ESTERASE TRACE (NEGATIVE); URINE NITRITE NEGATIVE (NEGATIVE); URINE PROTEIN NEGATIVE (NEGATIVE); URINE RBC 33 /uL (0-23.9); URINE WBC 63 /uL (0-25.8)
[2021-12-24 09:06] LABS: ALBUMIN 3.6 g/dl (3.4-5.0); CALCIUM 8.8 mg/dL (8.5-10.1)
[2021-12-24 09:07] LABS: BLOOD UREA NITROGEN 15.5 mg/dL (7-18); MCH 18.4 pg (25.7-33.7)
[2021-12-24 09:09] LABS: CREATININE 0.6 mg/dL (0.55-1.3)
[2021-12-24 09:11] LABS: BILIRUBIN,TOTAL 0.3 mg/dL (0.2-1); TOT PROT 7.1 g/dl (6.4-8.2)
[2021-12-24 10:32] LABS: ANISOCYTOSIS 3+; MACROCYTOSIS 0; OVALOCYTE 1+
[2021-12-24] MEDS ORDERED: morphine CARPU-JECT 4 MG/1 ML DISP.SYRIN IVPUSH ONE (11:19)
[2021-12-24] MEDS ORDERED: PANTOPRAZOLE SODIUM 40 MG VIAL ONE (14:43)
[2021-12-24] MEDS: D5-1/2NS+20 MEQ KCL - 20 MEQ/1,000 ML INFUS.BAG IV SCH (14:51)
[2021-12-24] MEDS: PANTOPRAZOLE SODIUM 40 MG VIAL IVPUSH SCH (14:51)
[2021-12-24] MEDS: ONDANSETRON 4 MG/2 ML VIAL IVPUSH PRN (23:30)
[2021-12-25 00:31] LABS: HEMATOCRIT 25.5 % (32.4-45.2); HEMOGLOBIN 7.8 GM/dL (10.7-15.3); MCHC 30.5 g/dl (32.0-36.0); MEAN CELL VOLUME 65.1 fl (80-96); MEAN PLT VOLUME 6.3 fl (7.5-11.1); PLATELET COUNT 404 10^3/uL (134-434); RBC 3.91 M/mm3 (3.60-5.2); RDW 22.8 % (11.6-15.6); WHITE BLOOD COUNT 5.6 K/mm3 (4.0-10.0)
[2021-12-25 00:35] LABS: MCH 19.8 pg (25.7-33.7)
[2021-12-25 00:51] VITALS: BMI 34.1
[2021-12-25] MEDS: ONDANSETRON 4 MG/2 ML VIAL IVPUSH PRN ×3 (06:30→21:02)
[2021-12-25 08:14] LABS: BASO % 0.8 % (0-2.0); EOS % 1.4 % (0-4.5); HEMATOCRIT 26.1 % (32.4-45.2); HEMOGLOBIN 7.9 GM/dL (10.7-15.3); LYMPH % 30.3 % (8-40); MCHC 30.2 g/dl (32.0-36.0); MEAN CELL VOLUME 65.4 fl (80-96); MEAN PLT VOLUME 6.7 fl (7.5-11.1); MONO % 11.5 % (3.8-10.2); PLATELET COUNT 413 10^3/uL (134-434); RDW 22.5 % (11.6-15.6)
[2021-12-25 08:24] LABS: CALCIUM 8.6 mg/dL (8.5-10.1)
[2021-12-25 08:25] LABS: BLOOD UREA NITROGEN 7.9 mg/dL (7-18)
[2021-12-25 08:28] LABS: CREATININE 0.6 mg/dL (0.55-1.3)
[2021-12-25 08:30] LABS: BILIRUBIN,TOTAL 0.4 mg/dL (0.2-1); TOT PROT 6.1 g/dl (6.4-8.2)
[2021-12-25 08:36] LABS: MCH 19.8 pg (25.7-33.7)
[2021-12-25] MEDS ORDERED: ACETAMINOPHEN 1000 MG/100 ML BAG IVPB ONE (09:00)
[2021-12-25] MEDS: PANTOPRAZOLE SODIUM 40 MG VIAL IVPUSH SCH (09:47)
[2021-12-25 09:54] LABS: RETICULOCYTES 1.93 % (0.5-1.5)
[2021-12-25] MEDS ORDERED: IRON SUCROSE INJECTION 200 MG in SODIUM CHLORIDE 90 ML IVPB ONE (10:00)
[2021-12-25] MEDS ORDERED: FLU VACC QS2021-22(6MOS UP)/PF 60 MCG/0.5 ML SYRINGE IM ONE (10:00)
[2021-12-25] MEDS: D5-1/2NS+20 MEQ KCL - 20 MEQ/1,000 ML INFUS.BAG IV SCH ×2 (11:20→22:56)
[2021-12-26 07:21] LABS: CALCIUM 8.6 mg/dL (8.5-10.1); EOS % 1.4 % (0-4.5); HEMATOCRIT 26.5 % (32.4-45.2); HEMOGLOBIN 8.1 GM/dL (10.7-15.3); LYMPH % 23.2 % (8-40); MCHC 30.5 g/dl (32.0-36.0); MEAN CELL VOLUME 65.5 fl (80-96); MEAN PLT VOLUME 6.6 fl (7.5-11.1); NEUT % 62.4 % (42.8-82.8); PLATELET COUNT 423 10^3/uL (134-434); RBC 4.05 M/mm3 (3.60-5.2); RDW 22.7 % (11.6-15.6); WHITE BLOOD COUNT 6.6 K/mm3 (4.0-10.0)
[2021-12-26 07:22] LABS: BLOOD UREA NITROGEN 4.2 mg/dL (7-18)
[2021-12-26 07:23] LABS: CREATININE 0.6 mg/dL (0.55-1.3)
[2021-12-26 07:24] LABS: BILIRUBIN,TOTAL 0.6 mg/dL (0.2-1)
[2021-12-26] MEDS: D5-1/2NS+20 MEQ KCL - 20 MEQ/1,000 ML INFUS.BAG IV SCH ×2 (07:46→13:49)
[2021-12-26] MEDS: PANTOPRAZOLE SODIUM 40 MG VIAL IVPUSH SCH (09:24)
[2021-12-26] MEDS: ACETAMINOPHEN 1000 MG/100 ML BAG IVPB PRN ×2 (12:58→23:20)
[2021-12-26] MEDS ORDERED: IRON SUCROSE INJECTION 200 MG in SODIUM CHLORIDE 90 ML IVPB ONE (13:16)
[2021-12-27] MEDS: PANTOPRAZOLE SODIUM 40 MG VIAL IVPUSH SCH (09:35)
[2021-12-27] MEDS ORDERED: ENOXAPARIN NA (PORCINE) 40 MG/0.4 ML DISP.SYRIN SQ ONE (10:00)
[2021-12-27 10:12] LABS: BASO % 0.8 % (0-2.0); EOS % 0.6 % (0-4.5); HEMATOCRIT 31.4 % (32.4-45.2); HEMOGLOBIN 9.7 GM/dL (10.7-15.3); LYMPH % 13.7 % (8-40); MCH 20.2 pg (25.7-33.7); MCHC 31.1 g/dl (32.0-36.0); MEAN PLT VOLUME 6.3 fl (7.5-11.1); MONO % 10.3 % (3.8-10.2); NEUT % 74.6 % (42.8-82.8); PLATELET COUNT 461 10^3/uL (134-434); RBC 4.82 M/mm3 (3.60-5.2); RDW 23.8 % (11.6-15.6); WHITE BLOOD COUNT 10.1 K/mm3 (4.0-10.0)
[2021-12-27 11:02] LABS: CALCIUM 8.8 mg/dL (8.5-10.1)
[2021-12-27 11:03] LABS: BLOOD UREA NITROGEN 4.6 mg/dL (7-18)
[2021-12-27 11:06] LABS: CREATININE 0.6 mg/dL (0.55-1.3)
[2021-12-27 11:26] LABS: ANISOCYTOSIS 3+; MACROCYTOSIS 0
[2021-12-27] MEDS ORDERED: IRON SUCROSE INJECTION 200 MG in SODIUM CHLORIDE 90 ML IVPB ONE (12:00)
[2021-12-27] MEDS ORDERED: BISACODYL 5 MG TABLET.DR (FP) PO ONE (16:00)
[2021-12-27] MEDS: D5-1/2NS+20 MEQ KCL - 20 MEQ/1,000 ML INFUS.BAG IV SCH (16:51)
[2021-12-27] MEDS ORDERED: PEG 3350/NA SULF BICARB CL/KCL 4000 ML SOLN.RECON PO ONE (17:00)
[2021-12-27] MEDS: ONDANSETRON 4 MG/2 ML VIAL IVPUSH PRN (23:21)
[2021-12-28] MEDS ORDERED: ACETAMINOPHEN 1000 MG/100 ML BAG IVPB ONE (03:32)
[2021-12-28] MEDS: D5-1/2NS+20 MEQ KCL - 20 MEQ/1,000 ML INFUS.BAG IV SCH ×2 (05:08→23:53)
[2021-12-28 09:18] LABS: INR 1.6 (0.83-1.09); PROTHROMBIN TIME (PATIENT) 18.5 SEC (9.7-13.0)
[2021-12-28 09:21] LABS: ACTIVATED PTT 34.7 SECONDS (25.2-36.5)
[2021-12-28 09:22] LABS: BASO % 0.6 % (0-2.0); EOS % 0.5 % (0-4.5); HEMATOCRIT 30.3 % (32.4-45.2); MCHC 29.8 g/dl (32.0-36.0); MEAN CELL VOLUME 66.9 fl (80-96); MEAN PLT VOLUME 6.6 fl (7.5-11.1); MONO % 14.5 % (3.8-10.2); NEUT % 68.4 % (42.8-82.8); PLATELET COUNT 415 10^3/uL (134-434); RBC 4.52 M/mm3 (3.60-5.2); RDW 23.7 % (11.6-15.6); WHITE BLOOD COUNT 10.4 K/mm3 (4.0-10.0)
[2021-12-28 09:36] LABS: CALCIUM 8.8 mg/dL (8.5-10.1)
[2021-12-28 09:37] LABS: ALBUMIN 3.2 g/dl (3.4-5.0)
[2021-12-28 09:40] LABS: CREATININE 0.6 mg/dL (0.55-1.3)
[2021-12-28 09:41] LABS: BILIRUBIN,TOTAL 0.4 mg/dL (0.2-1); TOT PROT 6.4 g/dl (6.4-8.2)
[2021-12-28] MEDS: PANTOPRAZOLE 40 MG TABLET PO SCH (14:43)
[2021-12-28] MEDS: ACETAMINOPHEN 325 MG TABLET (FP) PO PRN ×2 (14:43→22:48)
[2021-12-28] MEDS: ONDANSETRON 4 MG/2 ML VIAL IVPUSH PRN (22:43)
[2021-12-28] MEDS: SULFAMETHOXAZOLE/TRIMETHOPRIM 800MG/160MG D.S. TABLET PO SCH (22:49)
[2021-12-29 07:05] LABS: BASO % 0.5 % (0-2.0); EOS % 1.1 % (0-4.5); HEMOGLOBIN 8.1 GM/dL (10.7-15.3); LYMPH % 20.7 % (8-40); MCH 20.3 pg (25.7-33.7); MCHC 29.8 g/dl (32.0-36.0); MEAN CELL VOLUME 68.1 fl (80-96); MEAN PLT VOLUME 6.9 fl (7.5-11.1); MONO % 11.6 % (3.8-10.2); NEUT % 66.1 % (42.8-82.8); PLATELET COUNT 368 10^3/uL (134-434); RBC 3.97 M/mm3 (3.60-5.2); RDW 24.2 % (11.6-15.6)
[2021-12-29 08:12] LABS: CALCIUM 8.2 mg/dL (8.5-10.1)
[2021-12-29 08:16] LABS: CREATININE 0.6 mg/dL (0.55-1.3)
[2021-12-29] MEDS: D5-1/2NS+20 MEQ KCL - 20 MEQ/1,000 ML INFUS.BAG IV SCH ×3 (09:06→19:43)
[2021-12-29] MEDS: SULFAMETHOXAZOLE/TRIMETHOPRIM 800MG/160MG D.S. TABLET PO SCH ×2 (10:12→21:56)
[2021-12-29] MEDS: PANTOPRAZOLE 40 MG TABLET PO SCH (10:12)
[2021-12-29] MEDS: ENOXAPARIN NA (PORCINE) 40 MG/0.4 ML DISP.SYRIN SQ SCH (10:13)
[2021-12-29] MEDS: ACETAMINOPHEN 325 MG TABLET (FP) PO PRN (20:49)
[2021-12-30 08:35] VITALS: TEMP 98.3
[2021-12-30] MEDS: ENOXAPARIN NA (PORCINE) 40 MG/0.4 ML DISP.SYRIN SQ SCH (09:31)
[2021-12-30] MEDS: SULFAMETHOXAZOLE/TRIMETHOPRIM 800MG/160MG D.S. TABLET PO SCH (09:31)
[2021-12-30] MEDS: PANTOPRAZOLE 40 MG TABLET PO SCH (09:31)
[2021-12-30 09:54] LABS: BASO % 0.8 % (0-2.0); EOS % 1.7 % (0-4.5); HEMATOCRIT 29.3 % (32.4-45.2); HEMOGLOBIN 8.9 GM/dL (10.7-15.3); MCH 20.4 pg (25.7-33.7); MCHC 30.4 g/dl (32.0-36.0); MEAN CELL VOLUME 67.1 fl (80-96); MEAN PLT VOLUME 6.7 fl (7.5-11.1); MONO % 9.5 % (3.8-10.2); PLATELET COUNT 402 10^3/uL (134-434); RBC 4.36 M/mm3 (3.60-5.2); RDW 26.5 % (11.6-15.6); WHITE BLOOD COUNT 6.2 K/mm3 (4.0-10.0)
[2021-12-30 10:13] LABS: BLOOD UREA NITROGEN 8.4 mg/dL (7-18); CALCIUM 8.7 mg/dL (8.5-10.1)
[2021-12-30 10:17] LABS: CREATININE 0.7 mg/dL (0.55-1.3)
[2021-12-30 14:21] VITALS: BP 107/62; PULSE 83
== END 2021-12-30 19:14 | disposition home or self-care (01) | DRG 379 ==
LOC: JER 06:18 → JERBED 11:29 → J6S 22:43
PROVIDERS: ADMIT Internal Medicine; ATTEND Internal Medicine
PROC: 30233N1 Transfusion of Nonautologous Red Blood Cells into Peripheral Vein, Percutaneous Approach (ICD-10-PCS; 2021-12-24)
PROC: 0DB68ZX Excision of Stomach, Via Natural or Artificial Opening Endoscopic, Diagnostic (ICD-10-PCS; 2021-12-28)
PROC: 0DB58ZX Excision of Esophagus, Via Natural or Artificial Opening Endoscopic, Diagnostic (ICD-10-PCS; 2021-12-28)
PROC: 0DBH8ZX Excision of Cecum, Via Natural or Artificial Opening Endoscopic, Diagnostic (ICD-10-PCS; 2021-12-28)
PROC: 0DB98ZX Excision of Duodenum, Via Natural or Artificial Opening Endoscopic, Diagnostic (ICD-10-PCS; principal; 2021-12-28 11:30)
DX: K29.71 Gastritis, unspecified, with bleeding (principal); K43.2 Incisional hernia without obstruction or gangrene; D50.9 Iron deficiency anemia, unspecified; K22.70 Barrett's esophagus without dysplasia; E66.9 Obesity, unspecified; Z68.34 Body mass index [BMI] 34.0-34.9, adult; D12.0 Benign neoplasm of cecum; K64.8 Other hemorrhoids
CPT/HCPCS: 36415; 36430; 71046-TC-FY; 74177-TC; 76830-TC; 80048; 80053; 81003; 82272; 82607; 82728; 82746; 83540; 83550; 83605; 85025; 85027; 85045; 85610; 85730; 86850; 86900; 86901; 86922; 87040; 87086; 88305-TC; 90686; 93005; 93010; 93971; 99285-25; C9803-CS; G0008; J1756; P9058; U0003; U0005

== ENCOUNTER 2022-03-03 16:52 | Emergency (ER) | payer BC ==
[2022-03-03 17:01] VITALS: BP 128/82; PULSE 89; TEMP 98.3; BMI 33.3
[2022-03-03] MEDS ORDERED: METHOCARBAMOL 500 MG TABLET PO ONE (17:33)
[2022-03-03] MEDS ORDERED: KETOROLAC TROMETHAMINE 60 MG/2 ML VIAL IM ONE (17:33)
[2022-03-03] MEDS ORDERED: LIDOCAINE 5% TOPICAL PATCH TP ONE (17:34)
[2022-03-03] MEDS ORDERED: METHOCARBAMOL 500 MG TABLET ONE (17:53)
[2022-03-03] MEDS ORDERED: KETOROLAC TROMETHAMINE 60 MG/2 ML VIAL ONE (17:53)
[2022-03-03] MEDS ORDERED: LIDOCAINE 5% TOPICAL PATCH ONE (17:53)
== END 2022-03-03 20:27 | disposition home or self-care (01) ==
LOC: JERFT 16:52 → JER 16:52 → JERFT 20:27
PROC: 3E0233Z Introduction of Anti-inflammatory into Muscle, Percutaneous Approach (ICD-10-PCS; principal; 2022-03-03)
DX: M54.41 Lumbago with sciatica, right side (principal)
CPT/HCPCS: 72131-TC; 99284-25

== ENCOUNTER 2022-05-14 21:17 | Inpatient (IN) | payer BC ==
[2022-05-14] MEDS ORDERED: LIDOCAINE PATCH REMOVAL MC SCH (22:00)
[2022-05-14] MEDS ORDERED: FAMOTIDINE 20 MG/50 ML IVPB 20 MG/50 ML MG IVPB ONE ×2 (22:10→22:16)
[2022-05-14] MEDS ORDERED: ACETAMINOPHEN 1000 MG/100 ML BAG IVPB ONE (22:10)
[2022-05-14] MEDS ORDERED: SODIUM CHLORIDE 0.9% 500 ML INFUS.BAG IV ONE (22:10)
[2022-05-14] MEDS ORDERED: ONDANSETRON 4 MG/2 ML VIAL IVPUSH ONE (22:10)
[2022-05-14] MEDS ORDERED: LIDOCAINE 5% TOPICAL PATCH TP ONE (22:11)
[2022-05-14] MEDS ORDERED: LIDOCAINE 5% TOPICAL PATCH ONE (22:15)
[2022-05-14] MEDS ORDERED: ONDANSETRON 4 MG/2 ML VIAL ONE (22:15)
[2022-05-14] MEDS ORDERED: ACETAMINOPHEN INJECTION 100 ML IVPB ONE (22:15)
[2022-05-14 22:55] LABS: EOS % 1.6 % (0-4.5); HEMATOCRIT 24.1 % (32.4-45.2); HEMOGLOBIN 7.3 GM/dL (10.7-15.3); LYMPH % 32.4 % (8-40); MCHC 30.4 g/dl (32.0-36.0); MEAN CELL VOLUME 65.7 fl (80-96); MEAN PLT VOLUME 6.4 fl (7.5-11.1); MONO % 9.7 % (3.8-10.2); NEUT % 55.3 % (42.8-82.8); PLATELET COUNT 543 10^3/uL (134-434); RBC 3.66 M/mm3 (3.60-5.2); RDW 18.8 % (11.6-15.6); WHITE BLOOD COUNT 6.6 K/mm3 (4.0-10.0)
[2022-05-14 23:05] LABS: INR 1.14 (0.83-1.09); PROTHROMBIN TIME (PATIENT) 13.1 SEC (9.7-13.0)
[2022-05-14 23:22] LABS: ALBUMIN 3.5 g/dl (3.4-5.0); BLOOD UREA NITROGEN 14.2 mg/dL (7-18); CALCIUM 8.6 mg/dL (8.5-10.1); MAGNESIUM 2.2 mg/dL (1.8-2.4)
[2022-05-14 23:25] LABS: CREATININE 0.6 mg/dL (0.55-1.3)
[2022-05-14 23:27] LABS: BILIRUBIN,TOTAL 0.2 mg/dL (0.2-1); TOT PROT 6.8 g/dl (6.4-8.2)
[2022-05-15 00:35] LABS: LACTIC ACID 2.1 mmol/L (0.4-2.0)
[2022-05-15] MEDS ORDERED: morphine CARPU-JECT 2 MG/1 ML DISP.SYRIN IVPUSH ONE (01:14)
[2022-05-15 02:05] LABS: URINE APPEARANCE CLEAR; URINE BILIRUBIN NEGATIVE (NEGATIVE); URINE COLOR YELLOW; URINE GLUCOSE (UA) NEGATIVE (NEGATIVE); URINE KETONE NEGATIVE (NEGATIVE); URINE LEUK ESTERASE NEGATIVE (NEGATIVE); URINE NITRITE NEGATIVE (NEGATIVE); URINE PROTEIN NEGATIVE (NEGATIVE); URINE UROBILINOGEN 0.2 mg/dL (0.2-1.0)
[2022-05-15] MEDS ORDERED: ACETAMINOPHEN 1000 MG/100 ML BAG IVPB PRN (05:32)
[2022-05-15 05:57] VITALS: RESP 18; BMI 33.8
[2022-05-15] MEDS ORDERED: FERROUS SO4 325 MG TABLET (FP) PO SCH (10:00)
[2022-05-15] MEDS ORDERED: PANTOPRAZOLE SODIUM 40 MG VIAL IVPUSH SCH (10:00)
[2022-05-15] MEDS ORDERED: POLYETHYLENE GLYCOL (HEALTHYLAX) 3350 17 GM PACKET PO SCH (14:00)
[2022-05-15] MEDS ORDERED: IRON SUCROSE INJECTION 200 MG in SODIUM CHLORIDE 90 ML IVPB ONE (14:00)
[2022-05-15 14:40] VITALS: BP 120/67; PULSE 69; TEMP 97.8
[2022-05-16] MEDS ORDERED: PANTOPRAZOLE 40 MG TABLET PO SCH (10:00)
== END 2022-05-15 18:17 | disposition home or self-care (01) | DRG 812 ==
LOC: JER 21:17 → JERBED 05-15 03:40 → J6S 05-15 05:05
PROVIDERS: ADMIT Internal Medicine; ATTEND Internal Medicine
PROC: 30233N1 Transfusion of Nonautologous Red Blood Cells into Peripheral Vein, Percutaneous Approach (ICD-10-PCS; principal; 2022-05-15)
DX: D50.9 Iron deficiency anemia, unspecified (principal); K62.5 Hemorrhage of anus and rectum; K21.9 Gastro-esophageal reflux disease without esophagitis; K43.9 Ventral hernia without obstruction or gangrene; K64.4 Residual hemorrhoidal skin tags; R10.32 Left lower quadrant pain; E66.9 Obesity, unspecified; Z68.33 Body mass index [BMI] 33.0-33.9, adult
CPT/HCPCS: 36415; 36430; 74177-TC; 80053; 81003; 82272; 83605; 83735; 85025; 85610; 85730; 86850; 86900; 86901; 86922; 87086; 93005; 93010; 99285-25; C9803-CS; J1756; P9058; Q9967; U0003; U0005

== ENCOUNTER 2022-08-03 13:45 | Emergency (ER) | payer BC ==
[2022-08-03 14:04] VITALS: BP 127/68; PULSE 86; RESP 16; TEMP 99.1; BMI 33.3
[2022-08-03] MEDS ORDERED: ACETAMINOPHEN 1000 MG/100 ML BAG IVPB ONE (15:36)
[2022-08-03] MEDS ORDERED: ACETAMINOPHEN INJECTION 100 ML IVPB ONE (16:42)
[2022-08-03 17:20] LABS: BASO % 1.1 % (0-2.0); EOS % 1.5 % (0-4.5); HEMATOCRIT 30.1 % (32.4-45.2); LYMPH % 24.5 % (8-40); MCHC 29.8 g/dl (32.0-36.0); MEAN CELL VOLUME 66.6 fl (80-96); MEAN PLT VOLUME 6.8 fl (7.5-11.1); MONO % 8.4 % (3.8-10.2); NEUT % 64.5 % (42.8-82.8); PLATELET COUNT 491 10^3/uL (134-434); RBC 4.52 M/mm3 (3.60-5.2); RDW 20.5 % (11.6-15.6); WHITE BLOOD COUNT 8.9 K/mm3 (4.0-10.0)
[2022-08-03 17:21] LABS: MCH 19.9 pg (25.7-33.7)
[2022-08-03 17:23] LABS: URINE APPEARANCE CLEAR; URINE BILIRUBIN NEGATIVE (NEGATIVE); URINE COLOR YELLOW; URINE GLUCOSE (UA) NEGATIVE (NEGATIVE); URINE KETONE NEGATIVE (NEGATIVE); URINE LEUK ESTERASE NEGATIVE (NEGATIVE); URINE NITRITE NEGATIVE (NEGATIVE); URINE PROTEIN NEGATIVE (NEGATIVE); URINE UROBILINOGEN 0.2 mg/dL (0.2-1.0)
[2022-08-03 17:43] LABS: ALBUMIN 3.7 g/dl (3.4-5.0); CALCIUM 9.3 mg/dL (8.5-10.1)
[2022-08-03 17:44] LABS: BLOOD UREA NITROGEN 13.6 mg/dL (7-18)
[2022-08-03 17:47] LABS: CREATININE 0.5 mg/dL (0.55-1.3)
[2022-08-03 17:48] LABS: BILIRUBIN,TOTAL 0.2 mg/dL (0.2-1); TOT PROT 6.8 g/dl (6.4-8.2)
[2022-08-03] MEDS ORDERED: ASPIRIN 81 MG CHEWABLE TABLETS PO ONE (18:35)
[2022-08-03] MEDS ORDERED: ONDANSETRON 4 MG/2 ML VIAL IVPUSH ONE (18:35)
[2022-08-03] MEDS ORDERED: ONDANSETRON 4 MG/2 ML VIAL ONE (19:02)
[2022-08-03] MEDS ORDERED: ASPIRIN 81 MG CHEWABLE TABLETS ONE (19:02)
[2022-08-03 23:05] LABS: ANISOCYTOSIS 1+; MACROCYTOSIS 0; PLATELET ESTIMATE INCREASED
== END 2022-08-03 22:28 | disposition left against medical advice (07) ==
LOC: JER 13:45
PROC: 3E033GC Introduction of Other Therapeutic Substance into Peripheral Vein, Percutaneous Approach (ICD-10-PCS; principal; 2022-08-03)
DX: R07.9 Chest pain, unspecified (principal)
CPT/HCPCS: 0241U-QW; 36415; 71045-TC-FY; 80053; 81003; 83605; 83690; 84484; 85025; 87086; 93005; 93010; 99285-25

== ENCOUNTER 2022-08-13 08:16 | Inpatient (IN) | payer BC ==
[2022-08-13] MEDS ORDERED: ONDANSETRON 4 MG/2 ML VIAL IVPUSH ONE (09:58)
[2022-08-13] MEDS ORDERED: ACETAMINOPHEN 1000 MG/100 ML BAG IVPB ONE (09:58)
[2022-08-13] MEDS ORDERED: ONDANSETRON 4 MG/2 ML VIAL ONE (11:39)
[2022-08-13 12:11] LABS: BASO % 1.4 % (0-2.0); EOS % 1.5 % (0-4.5); HEMATOCRIT 30.5 % (32.4-45.2); LYMPH % 27.6 % (8-40); MCHC 29.4 g/dl (32.0-36.0); MEAN CELL VOLUME 66.4 fl (80-96); MEAN PLT VOLUME 6.7 fl (7.5-11.1); MONO % 9.7 % (3.8-10.2); NEUT % 59.8 % (42.8-82.8); PLATELET COUNT 509 10^3/uL (134-434); RBC 4.59 M/mm3 (3.60-5.2); RDW 19.9 % (11.6-15.6); WHITE BLOOD COUNT 6.1 K/mm3 (4.0-10.0)
[2022-08-13 12:17] LABS: MCH 19.5 pg (25.7-33.7)
[2022-08-13 12:19] LABS: INR 1.11 (0.83-1.09); PROTHROMBIN TIME (PATIENT) 12.8 SEC (9.7-13.0)
[2022-08-13 12:20] LABS: URINE APPEARANCE CLEAR; URINE BILIRUBIN NEGATIVE (NEGATIVE); URINE COLOR YELLOW; URINE GLUCOSE (UA) NEGATIVE (NEGATIVE); URINE KETONE NEGATIVE (NEGATIVE); URINE LEUK ESTERASE NEGATIVE (NEGATIVE); URINE NITRITE NEGATIVE (NEGATIVE); URINE PROTEIN NEGATIVE (NEGATIVE); URINE UROBILINOGEN 0.2 mg/dL (0.2-1.0)
[2022-08-13 12:22] LABS: ACTIVATED PTT 32.3 SECONDS (25.2-36.5)
[2022-08-13 12:39] LABS: CALCIUM 9.2 mg/dL (8.5-10.1)
[2022-08-13 12:41] LABS: ALBUMIN 3.7 g/dl (3.4-5.0)
[2022-08-13 12:42] LABS: MAGNESIUM 2.3 mg/dL (1.8-2.4)
[2022-08-13 12:44] LABS: CREATININE 0.5 mg/dL (0.55-1.3)
[2022-08-13 12:46] LABS: BILIRUBIN,TOTAL 0.3 mg/dL (0.2-1); TOT PROT 7.2 g/dl (6.4-8.2)
[2022-08-13 12:48] LABS: ANISOCYTOSIS 2+; MACROCYTOSIS 0
[2022-08-13] MEDS ORDERED: morphine CARPU-JECT 4 MG/1 ML DISP.SYRIN IVPUSH ONE (14:47)
[2022-08-13] MEDS ORDERED: morphine SULFATE 4 MG/ML VIAL ONE ×2 (15:34→19:28)
[2022-08-13] MEDS ORDERED: SODIUM CHLORIDE 0.9% 500 ML INFUS.BAG IV ONE (17:21)
[2022-08-13] MEDS ORDERED: ACETAMINOPHEN 1000 MG/100 ML BAG IVPB PRN (18:35)
[2022-08-13] MEDS ORDERED: morphine SULFATE 4 MG/ML VIAL IVPUSH PRN (18:35)
[2022-08-13] MEDS ORDERED: LACTATED RINGERS SOLUTION 1,000 ML/1,000 ML INFUS.BAG IV SCH (18:45)
[2022-08-13 20:54] LABS: HEMATOCRIT 25.8 % (32.4-45.2); HEMOGLOBIN 7.9 GM/dL (10.7-15.3); MCH 20.2 pg (25.7-33.7); MCHC 30.4 g/dl (32.0-36.0); MEAN CELL VOLUME 66.3 fl (80-96); MEAN PLT VOLUME 6.5 fl (7.5-11.1); PLATELET COUNT 421 10^3/uL (134-434); RDW 19.7 % (11.6-15.6); WHITE BLOOD COUNT 5.8 K/mm3 (4.0-10.0)
[2022-08-13] MEDS ORDERED: morphine SULFATE 4 MG/ML VIAL IVPUSH ONE (23:14)
[2022-08-13 23:15] VITALS: BMI 35.6
[2022-08-14] MEDS ORDERED: SODIUM CHLORIDE 1,000 ML IV SCH (10:45)
[2022-08-14 11:00] LABS: BASO % 1.5 % (0-2.0); EOS % 1.1 % (0-4.5); HEMATOCRIT 27.8 % (32.4-45.2); HEMOGLOBIN 8.1 GM/dL (10.7-15.3); LYMPH % 23.3 % (8-40); MCHC 29.1 g/dl (32.0-36.0); MEAN CELL VOLUME 66.9 fl (80-96); MEAN PLT VOLUME 7.1 fl (7.5-11.1); MONO % 10.6 % (3.8-10.2); NEUT % 63.5 % (42.8-82.8); PLATELET COUNT 436 10^3/uL (134-434); RBC 4.15 M/mm3 (3.60-5.2); RDW 19.5 % (11.6-15.6); WHITE BLOOD COUNT 5.6 K/mm3 (4.0-10.0)
[2022-08-14 11:03] LABS: INR 1.2 (0.83-1.09); MCH 19.5 pg (25.7-33.7); PROTHROMBIN TIME (PATIENT) 13.8 SEC (9.7-13.0)
[2022-08-14 11:06] LABS: ACTIVATED PTT 30.7 SECONDS (25.2-36.5)
[2022-08-14] MEDS: LACTATED RINGERS SOLUTION 1,000 ML/1,000 ML INFUS.BAG IV SCH (11:29)
[2022-08-14 11:34] LABS: CALCIUM 8.6 mg/dL (8.5-10.1)
[2022-08-14 11:35] LABS: BLOOD UREA NITROGEN 10.6 mg/dL (7-18)
[2022-08-14 11:38] LABS: CREATININE 0.4 mg/dL (0.55-1.3); PHOSPHOROUS 3.1 mg/dL (2.5-4.9)
[2022-08-14 11:39] LABS: BILIRUBIN,TOTAL 0.3 mg/dL (0.2-1)
[2022-08-14 11:40] LABS: TOT PROT 5.9 g/dl (6.4-8.2)
[2022-08-14] MEDS ORDERED: GLYCERIN 1 RECTAL SUPPOSITORY, ADULT RC ONE (18:06)
[2022-08-14] MEDS: ACETAMINOPHEN 1000 MG/100 ML BAG IVPB PRN (20:19)
[2022-08-14] MEDS: POLYETHYLENE GLYCOL (HEALTHYLAX) 3350 17 GM PACKET PO SCH (22:04)
[2022-08-14] MEDS: SENNOSIDES 8.6MG TABLET (FP) PO SCH (22:04)
[2022-08-15] MEDS ORDERED: ACETAMINOPHEN 1000 MG/100 ML BAG IVPB ONE (01:55)
[2022-08-15] MEDS: POLYETHYLENE GLYCOL (HEALTHYLAX) 3350 17 GM PACKET PO SCH ×2 (09:19→21:07)
[2022-08-15] MEDS: IBUPROFEN 800 MG/8 ML IJ IVPB PRN ×3 (09:54→23:23)
[2022-08-15] MEDS: LACTATED RINGERS SOLUTION 1,000 ML/1,000 ML INFUS.BAG IV SCH ×2 (10:03→12:29)
[2022-08-15 10:21] VITALS: RESP 18
[2022-08-15 11:44] LABS: HEMATOCRIT 28.5 % (32.4-45.2); HEMOGLOBIN 8.5 GM/dL (10.7-15.3); MCHC 29.9 g/dl (32.0-36.0); MEAN CELL VOLUME 65.9 fl (80-96); MEAN PLT VOLUME 6.7 fl (7.5-11.1); PLATELET COUNT 444 10^3/uL (134-434); RBC 4.32 M/mm3 (3.60-5.2); RDW 19.3 % (11.6-15.6); WHITE BLOOD COUNT 5.3 K/mm3 (4.0-10.0)
[2022-08-15 12:00] LABS: MCH 19.7 pg (25.7-33.7)
[2022-08-15 12:07] LABS: ALBUMIN 3.2 g/dl (3.4-5.0); CALCIUM 8.7 mg/dL (8.5-10.1)
[2022-08-15 12:08] LABS: MAGNESIUM 2.1 mg/dL (1.8-2.4)
[2022-08-15 12:10] LABS: CREATININE 0.4 mg/dL (0.55-1.3)
[2022-08-15 12:12] LABS: BILIRUBIN,TOTAL 0.3 mg/dL (0.2-1)
[2022-08-15 12:13] LABS: PHOSPHOROUS 2.9 mg/dL (2.5-4.9)
[2022-08-15 12:17] LABS: TOT PROT 6.1 g/dl (6.4-8.2)
[2022-08-15] MEDS ORDERED: ACETAMINOPHEN/CAFFEINE/BUTALBITAL 1 TAB PO ONE (13:15)
[2022-08-15] MEDS: ACETAMINOPHEN 1000 MG/100 ML BAG IVPB PRN (20:08)
[2022-08-15] MEDS: SENNOSIDES 8.6MG TABLET (FP) PO SCH (21:04)
[2022-08-15 22:48] LABS: HEMATOCRIT 28.6 % (32.4-45.2); HEMOGLOBIN 8.5 GM/dL (10.7-15.3); MCHC 29.8 g/dl (32.0-36.0); MEAN CELL VOLUME 66.2 fl (80-96); MEAN PLT VOLUME 6.7 fl (7.5-11.1); PLATELET COUNT 451 10^3/uL (134-434); RBC 4.32 M/mm3 (3.60-5.2); RDW 19.4 % (11.6-15.6); WHITE BLOOD COUNT 6.6 K/mm3 (4.0-10.0)
[2022-08-15 22:50] LABS: MCH 19.7 pg (25.7-33.7)
[2022-08-16] MEDS: ACETAMINOPHEN 1000 MG/100 ML BAG IVPB PRN ×3 (04:04→21:28)
[2022-08-16] MEDS: POLYETHYLENE GLYCOL (HEALTHYLAX) 3350 17 GM PACKET PO SCH ×2 (10:13→21:29)
[2022-08-16] MEDS: LACTATED RINGERS SOLUTION 1,000 ML/1,000 ML INFUS.BAG IV SCH (11:04)
[2022-08-16 11:26] LABS: HEMATOCRIT 30.7 % (32.4-45.2); HEMOGLOBIN 9.3 GM/dL (10.7-15.3); MCH 20.1 pg (25.7-33.7); MCHC 30.2 g/dl (32.0-36.0); MEAN CELL VOLUME 66.5 fl (80-96); MEAN PLT VOLUME 6.6 fl (7.5-11.1); PLATELET COUNT 492 10^3/uL (134-434); RBC 4.62 M/mm3 (3.60-5.2); RDW 19.6 % (11.6-15.6); WHITE BLOOD COUNT 4.8 K/mm3 (4.0-10.0)
[2022-08-16 12:05] LABS: ALBUMIN 3.5 g/dl (3.4-5.0); BLOOD UREA NITROGEN 10.2 mg/dL (7-18); MAGNESIUM 2.1 mg/dL (1.8-2.4)
[2022-08-16 12:08] LABS: CREATININE 0.6 mg/dL (0.55-1.3); PHOSPHOROUS 3.1 mg/dL (2.5-4.9)
[2022-08-16 12:10] LABS: BILIRUBIN,TOTAL 0.6 mg/dL (0.2-1); TOT PROT 6.8 g/dl (6.4-8.2)
[2022-08-16 17:46] LABS: HEMATOCRIT 29.1 % (32.4-45.2); HEMOGLOBIN 8.8 GM/dL (10.7-15.3); MCHC 30.1 g/dl (32.0-36.0); MEAN CELL VOLUME 65.9 fl (80-96); MEAN PLT VOLUME 6.8 fl (7.5-11.1); PLATELET COUNT 466 10^3/uL (134-434); RBC 4.42 M/mm3 (3.60-5.2); RDW 19.5 % (11.6-15.6); WHITE BLOOD COUNT 5.5 K/mm3 (4.0-10.0)
[2022-08-16 17:59] LABS: MCH 19.9 pg (25.7-33.7)
[2022-08-16] MEDS: SENNOSIDES 8.6MG TABLET (FP) PO SCH (21:29)
[2022-08-17] MEDS: LACTATED RINGERS SOLUTION 1,000 ML/1,000 ML INFUS.BAG IV SCH (04:41)
[2022-08-17] MEDS: ACETAMINOPHEN 1000 MG/100 ML BAG IVPB PRN (04:41)
[2022-08-17 10:39] LABS: HEMATOCRIT 29.6 % (32.4-45.2); HEMOGLOBIN 8.8 GM/dL (10.7-15.3); MCHC 29.8 g/dl (32.0-36.0); PLATELET COUNT 472 10^3/uL (134-434); RBC 4.41 M/mm3 (3.60-5.2); RDW 19.3 % (11.6-15.6); WHITE BLOOD COUNT 4.4 K/mm3 (4.0-10.0)
[2022-08-17] MEDS: POLYETHYLENE GLYCOL (HEALTHYLAX) 3350 17 GM PACKET PO SCH ×2 (11:16→21:00)
[2022-08-17 11:27] LABS: ALBUMIN 3.4 g/dl (3.4-5.0); CREATININE 0.6 mg/dL (0.55-1.3)
[2022-08-17 11:28] LABS: BILIRUBIN,TOTAL 0.5 mg/dL (0.2-1); TOT PROT 6.6 g/dl (6.4-8.2)
[2022-08-17 11:31] LABS: PHOSPHOROUS 3.8 mg/dL (2.5-4.9)
[2022-08-17 11:39] LABS: CALCIUM 9.1 mg/dL (8.5-10.1)
[2022-08-17 11:41] LABS: BLOOD UREA NITROGEN 7.7 mg/dL (7-18); MAGNESIUM 2.2 mg/dL (1.8-2.4)
[2022-08-17] MEDS ORDERED: ACETAMINOPHEN 1000 MG/100 ML BAG IVPB PRN (16:18)
[2022-08-17] MEDS: SENNOSIDES 8.6MG TABLET (FP) PO SCH (21:00)
[2022-08-17 21:55] VITALS: BP 137/83; PULSE 78; TEMP 97.8
== END 2022-08-17 21:57 | disposition home or self-care (01) | DRG 394 ==
LOC: JERFT 08:16 → JER 08:16 → JERBED 18:15 → J6S 22:41
PROVIDERS: ADMIT Internal Medicine; ATTEND Internal Medicine
DX: D12.0 Benign neoplasm of cecum (principal); K62.5 Hemorrhage of anus and rectum; K43.2 Incisional hernia without obstruction or gangrene; M54.50 Low back pain, unspecified; K59.00 Constipation, unspecified; D50.9 Iron deficiency anemia, unspecified; M47.897 Other spondylosis, lumbosacral region; K43.9 Ventral hernia without obstruction or gangrene; K22.70 Barrett's esophagus without dysplasia; K64.8 Other hemorrhoids; R11.2 Nausea with vomiting, unspecified; M43.17 Spondylolisthesis, lumbosacral region
CPT/HCPCS: 0241U-QW; 36415; 71046-TC-FY; 74177-TC; 80053; 81003; 82550; 82553; 82728; 83540; 83550; 83605; 83690; 83735; 84100; 84484; 85025; 85027; 85610; 85730; 87086; 93005; 93010; 94010; 99285-25; C9803-CS; Q9967; U0003; U0005

== ENCOUNTER 2023-02-07 12:47 | Emergency (ER) | payer BC ==
[2023-02-07 12:53] VITALS: BP 124/71; PULSE 92; RESP 18; TEMP 98.2; BMI 34.4
[2023-02-07] MEDS ORDERED: ONDANSETRON 4 MG/2 ML VIAL IVPUSH ONE (13:25)
[2023-02-07] MEDS ORDERED: LACTATED RINGERS SOLUTION 1000 ML INFUS.BAG IV ONE (13:25)
[2023-02-07] MEDS ORDERED: ACETAMINOPHEN 1000 MG/100 ML BAG IVPB ONE (13:25)
[2023-02-07] MEDS ORDERED: ACETAMINOPHEN INJECTION 100 ML IVPB ONE (13:49)
[2023-02-07] MEDS ORDERED: ONDANSETRON 4 MG/2 ML VIAL ONE (13:49)
[2023-02-07 14:02] LABS: BASO % 0.3 % (0-2.0); EOS % 0.5 % (0-4.5); HEMATOCRIT 27.7 % (32.4-45.2); LYMPH % 21.7 % (8-40); MCH 23.4 pg (25.7-33.7); MCHC 32.4 g/dl (32.0-36.0); MEAN CELL VOLUME 72.2 fl (80-96); MONO % 8.5 % (3.8-10.2); PLATELET COUNT 517 10^3/uL (134-434); RBC 3.84 M/mm3 (3.60-5.2); RDW 16.8 % (11.6-15.6); WHITE BLOOD COUNT 8.3 K/mm3 (4.0-10.0)
[2023-02-07 14:08] LABS: INR 1.17 (0.83-1.09); PROTHROMBIN TIME (PATIENT) 13.6 SEC (9.7-13.0)
[2023-02-07 14:10] LABS: ACTIVATED PTT 32.2 SECONDS (25.2-36.5)
[2023-02-07 14:21] LABS: POTASSIUM 4.4 mmol/L (3.5-5.1)
[2023-02-07 14:23] LABS: ALBUMIN 3.7 g/dl (3.4-5.0); CALCIUM 9.2 mg/dL (8.5-10.1)
[2023-02-07 14:27] LABS: CREATININE 0.7 mg/dL (0.55-1.3)
[2023-02-07 14:28] LABS: BILIRUBIN,TOTAL 0.3 mg/dL (0.2-1)
[2023-02-07] MEDS ORDERED: morphine CARPU-JECT 2 MG/1 ML DISP.SYRIN IVPUSH ONE (17:23)
[2023-02-07 20:08] LABS: URINE APPEARANCE CLEAR; URINE BILIRUBIN NEGATIVE (NEGATIVE); URINE COLOR YELLOW; URINE GLUCOSE (UA) NEGATIVE (NEGATIVE); URINE KETONE NEGATIVE (NEGATIVE)
[2023-02-07 20:09] LABS: PH,URINE 5.5 (5.0-8.0); URINE LEUK ESTERASE NEGATIVE (NEGATIVE); URINE NITRITE NEGATIVE (NEGATIVE); URINE PROTEIN NEGATIVE (NEGATIVE); URINE UROBILINOGEN 0.2 mg/dL (0.2-1.0)
== END 2023-02-07 19:53 | disposition home or self-care (01) ==
LOC: JER 12:47
PROC: 3E0333Z Introduction of Anti-inflammatory into Peripheral Vein, Percutaneous Approach (ICD-10-PCS; principal; 2023-02-07)
PROC: 3E033GC Introduction of Other Therapeutic Substance into Peripheral Vein, Percutaneous Approach (ICD-10-PCS; 2023-02-07)
PROC: 3E033GC Introduction of Other Therapeutic Substance into Peripheral Vein, Percutaneous Approach (ICD-10-PCS; 2023-02-07)
DX: K43.9 Ventral hernia without obstruction or gangrene (principal); R10.32 Left lower quadrant pain
CPT/HCPCS: 0241U-QW; 36415; 71045-TC-FY; 74177-TC; 76830-TC; 80053; 81003; 83605; 83690; 83735; 85025; 85610; 85730; 86850; 86900; 86901; 87086; 99285-25; Q9967

== ENCOUNTER 2023-02-13 19:35 | Inpatient (IN) | payer BC ==
[2023-02-13] MEDS ORDERED: morphine CARPU-JECT 2 MG/1 ML DISP.SYRIN IVPUSH ONE (20:10)
[2023-02-13] MEDS ORDERED: ONDANSETRON 4 MG/2 ML VIAL IVPUSH ONE (20:16)
[2023-02-13] MEDS ORDERED: morphine SULFATE 4 MG/ML VIAL ONE (20:26)
[2023-02-13] MEDS ORDERED: LACTATED RINGERS SOLUTION 1000 ML INFUS.BAG IV ONE (20:29)
[2023-02-13] MEDS ORDERED: ONDANSETRON 4 MG/2 ML VIAL ONE (20:33)
[2023-02-13] MEDS ORDERED: morphine CARPU-JECT 2 MG/1 ML DISP.SYRIN SQ ONE (20:43)
[2023-02-13 20:47] LABS: BASO % 1.6 % (0-2.0); EOS % 0.8 % (0-4.5); HEMATOCRIT 29.7 % (32.4-45.2); LYMPH % 20.5 % (8-40); MCH 21.4 pg (25.7-33.7); MCHC 30.2 g/dl (32.0-36.0); MEAN CELL VOLUME 70.8 fl (80-96); MEAN PLT VOLUME 6.5 fl (7.5-11.1); MONO % 8.6 % (3.8-10.2); NEUT % 68.5 % (42.8-82.8); PLATELET COUNT 507 10^3/uL (134-434); RDW 17.1 % (11.6-15.6); WHITE BLOOD COUNT 8.8 K/mm3 (4.0-10.0)
[2023-02-13 20:55] LABS: INR 1.08 (0.83-1.09); PROTHROMBIN TIME (PATIENT) 12.5 SEC (9.7-13.0)
[2023-02-13 20:57] LABS: ACTIVATED PTT 31.3 SECONDS (25.2-36.5)
[2023-02-13 21:00] LABS: POTASSIUM 4.2 mmol/L (3.5-5.1)
[2023-02-13 21:03] LABS: ALBUMIN 3.6 g/dl (3.4-5.0); BLOOD UREA NITROGEN 20.4 mg/dL (7-18); MAGNESIUM 2.2 mg/dL (1.8-2.4)
[2023-02-13 21:06] LABS: CREATININE 0.6 mg/dL (0.55-1.3)
[2023-02-13 21:08] LABS: BILIRUBIN,TOTAL 0.2 mg/dL (0.2-1); TOT PROT 6.9 g/dl (6.4-8.2)
[2023-02-13 21:34] LABS: ANISOCYTOSIS 0; MACROCYTOSIS 0; PLATELET ESTIMATE INCREASED
[2023-02-13] MEDS ORDERED: ACETAMINOPHEN INJECTION 100 ML IVPB ONE (23:53)
[2023-02-13] MEDS: ACETAMINOPHEN 1000 MG/100 ML BAG IVPB PRN (23:59)
[2023-02-14] MEDS ORDERED: SODIUM CHLORIDE 1,000 ML IV SCH (02:30)
[2023-02-14] MEDS ORDERED: HEPARIN NA (PORCINE) 5,000 UNITS/ML 1ML VIAL SQ SCH (06:00)
[2023-02-14 09:20] LABS: HEMATOCRIT 26.7 % (32.4-45.2); MCH 21.4 pg (25.7-33.7); MCHC 30.1 g/dl (32.0-36.0); MEAN CELL VOLUME 71.2 fl (80-96); MEAN PLT VOLUME 6.4 fl (7.5-11.1); PLATELET COUNT 422 10^3/uL (134-434); RBC 3.74 M/mm3 (3.60-5.2); RDW 16.6 % (11.6-15.6); WHITE BLOOD COUNT 6.7 K/mm3 (4.0-10.0)
[2023-02-14 09:47] LABS: PH,URINE 5.5 (5.0-8.0); URINE APPEARANCE CLEAR; URINE BILIRUBIN NEGATIVE (NEGATIVE); URINE COLOR YELLOW; URINE GLUCOSE (UA) NEGATIVE (NEGATIVE); URINE KETONE NEGATIVE (NEGATIVE); URINE LEUK ESTERASE NEGATIVE (NEGATIVE); URINE NITRITE NEGATIVE (NEGATIVE); URINE PROTEIN NEGATIVE (NEGATIVE); URINE UROBILINOGEN 0.2 mg/dL (0.2-1.0)
[2023-02-14] MEDS: ACETAMINOPHEN 1000 MG/100 ML BAG IVPB PRN ×3 (09:48→22:13)
[2023-02-14] MEDS: ENOXAPARIN NA (PORCINE) 40 MG/0.4 ML DISP.SYRIN SQ SCH (09:49)
[2023-02-14 09:56] LABS: ALBUMIN 3.2 g/dl (3.4-5.0); BLOOD UREA NITROGEN 11.4 mg/dL (7-18); CALCIUM 8.7 mg/dL (8.5-10.1)
[2023-02-14 09:57] LABS: MAGNESIUM 2.3 mg/dL (1.8-2.4)
[2023-02-14 09:59] LABS: CREATININE 0.5 mg/dL (0.55-1.3); PHOSPHOROUS 3.9 mg/dL (2.5-4.9)
[2023-02-14] MEDS ORDERED: ENOXAPARIN NA (PORCINE) 30 MG/0.3 ML DISP.SYRIN SQ SCH (10:00)
[2023-02-14 10:01] LABS: BILIRUBIN,TOTAL 0.3 mg/dL (0.2-1); TOT PROT 6.1 g/dl (6.4-8.2)
[2023-02-14] MEDS: POLYETHYLENE GLYCOL (HEALTHYLAX) 3350 17 GM PACKET PO SCH (10:52)
[2023-02-14] MEDS: DOCUSATE SODIUM 100 MG CAPSULE (FP) PO SCH (10:52)
[2023-02-14] MEDS: ONDANSETRON *ODT* 4 MG TABLET SL PRN (16:27)
[2023-02-14] MEDS: FERROUS SO4 325 MG TABLET (FP) PO SCH (22:13)
[2023-02-14] MEDS: SENNOSIDES 8.6MG TABLET (FP) PO SCH (22:13)
[2023-02-15] MEDS: ACETAMINOPHEN 1000 MG/100 ML BAG IVPB PRN ×2 (06:05→14:43)
[2023-02-15 08:51] LABS: BASO % 0.8 % (0-2.0); EOS % 0.8 % (0-4.5); HEMATOCRIT 28.5 % (32.4-45.2); HEMOGLOBIN 8.4 GM/dL (10.7-15.3); LYMPH % 33.6 % (8-40); MCH 21.5 pg (25.7-33.7); MCHC 29.6 g/dl (32.0-36.0); MEAN CELL VOLUME 72.4 fl (80-96); MONO % 8.9 % (3.8-10.2); NEUT % 55.9 % (42.8-82.8); PLATELET COUNT 464 10^3/uL (134-434); RBC 3.93 M/mm3 (3.60-5.2); RDW 16.9 % (11.6-15.6); WHITE BLOOD COUNT 6.1 K/mm3 (4.0-10.0)
[2023-02-15] MEDS: ONDANSETRON *ODT* 4 MG TABLET SL PRN (08:51)
[2023-02-15 09:17] LABS: POTASSIUM 4.6 mmol/L (3.5-5.1)
[2023-02-15 09:18] LABS: ALBUMIN 3.1 g/dl (3.4-5.0); BLOOD UREA NITROGEN 7.4 mg/dL (7-18); CALCIUM 8.9 mg/dL (8.5-10.1)
[2023-02-15 09:22] LABS: CREATININE 0.5 mg/dL (0.55-1.3)
[2023-02-15 09:23] LABS: TOT PROT 6.2 g/dl (6.4-8.2)
[2023-02-15 09:29] LABS: BILIRUBIN,TOTAL 0.3 mg/dL (0.2-1)
[2023-02-15] MEDS: FERROUS SO4 325 MG TABLET (FP) PO SCH (09:48)
[2023-02-15] MEDS: ENOXAPARIN NA (PORCINE) 40 MG/0.4 ML DISP.SYRIN SQ SCH (09:48)
[2023-02-15] MEDS: POLYETHYLENE GLYCOL (HEALTHYLAX) 3350 17 GM PACKET PO SCH (09:48)
[2023-02-15] MEDS: DOCUSATE SODIUM 100 MG CAPSULE (FP) PO SCH (09:48)
[2023-02-15 15:38] VITALS: BMI 35.1
[2023-02-15] MEDS ORDERED: IRON SUCROSE INJECTION 200 MG in SODIUM CHLORIDE 90 ML IVPB ONE (19:00)
[2023-02-15] MEDS: SENNOSIDES 8.6MG TABLET (FP) PO SCH (22:16)
[2023-02-16 08:13] LABS: HEMATOCRIT 28.9 % (32.4-45.2); HEMOGLOBIN 8.9 GM/dL (10.7-15.3); MCH 22.3 pg (25.7-33.7); MCHC 30.7 g/dl (32.0-36.0); MEAN CELL VOLUME 72.5 fl (80-96); PLATELET COUNT 486 10^3/uL (134-434); RBC 3.99 M/mm3 (3.60-5.2); RDW 16.6 % (11.6-15.6)
[2023-02-16 08:15] LABS: POTASSIUM 4.5 mmol/L (3.5-5.1)
[2023-02-16 08:18] LABS: ALBUMIN 3.4 g/dl (3.4-5.0); BLOOD UREA NITROGEN 7.8 mg/dL (7-18); CALCIUM 9.1 mg/dL (8.5-10.1)
[2023-02-16 08:22] LABS: CREATININE 0.6 mg/dL (0.55-1.3)
[2023-02-16 08:23] LABS: BILIRUBIN,TOTAL 0.3 mg/dL (0.2-1); TOT PROT 6.4 g/dl (6.4-8.2)
[2023-02-16] MEDS: POLYETHYLENE GLYCOL (HEALTHYLAX) 3350 17 GM PACKET PO SCH (09:26)
[2023-02-16] MEDS: DOCUSATE SODIUM 100 MG CAPSULE (FP) PO SCH (09:26)
[2023-02-16] MEDS: ENOXAPARIN NA (PORCINE) 40 MG/0.4 ML DISP.SYRIN SQ SCH (09:26)
[2023-02-16] MEDS ORDERED: IRON SUCROSE INJECTION 200 MG in SODIUM CHLORIDE 90 ML IVPB ONE (14:00)
[2023-02-16] MEDS: SENNOSIDES 8.6MG TABLET (FP) PO SCH (22:25)
[2023-02-17] MEDS: POLYETHYLENE GLYCOL (HEALTHYLAX) 3350 17 GM PACKET PO SCH ×2 (08:27→09:13)
[2023-02-17] MEDS: DOCUSATE SODIUM 100 MG CAPSULE (FP) PO SCH ×2 (08:27→09:13)
[2023-02-17] MEDS: ENOXAPARIN NA (PORCINE) 40 MG/0.4 ML DISP.SYRIN SQ SCH ×2 (08:27→09:13)
[2023-02-17 08:32] LABS: BASO % 1.1 % (0-2.0); EOS % 0.8 % (0-4.5); LYMPH % 28.4 % (8-40); MCH 21.5 pg (25.7-33.7); MCHC 29.9 g/dl (32.0-36.0); MEAN PLT VOLUME 6.7 fl (7.5-11.1); MONO % 12.2 % (3.8-10.2); NEUT % 57.5 % (42.8-82.8); PLATELET COUNT 475 10^3/uL (134-434); RBC 4.17 M/mm3 (3.60-5.2); RDW 16.7 % (11.6-15.6); WHITE BLOOD COUNT 6.3 K/mm3 (4.0-10.0)
[2023-02-17 08:56] LABS: POTASSIUM 4.6 mmol/L (3.5-5.1)
[2023-02-17 09:05] LABS: CREATININE 0.6 mg/dL (0.55-1.3)
[2023-02-17 10:23] LABS: ANISOCYTOSIS 3+; MACROCYTOSIS 0
[2023-02-17] MEDS: ACETAMINOPHEN 1000 MG/100 ML BAG IVPB PRN (11:25)
[2023-02-17] MEDS: SENNOSIDES 8.6MG TABLET (FP) PO SCH (21:05)
[2023-02-18 07:50] LABS: HEMOGLOBIN 9.4 GM/dL (10.7-15.3); MCH 22.1 pg (25.7-33.7); MCHC 30.3 g/dl (32.0-36.0); MEAN CELL VOLUME 73.1 fl (80-96); MEAN PLT VOLUME 7.6 fl (7.5-11.1); RBC 4.24 M/mm3 (3.60-5.2); RDW 16.6 % (11.6-15.6)
[2023-02-18 07:58] LABS: WHITE BLOOD COUNT 7.6 K/mm3 (4.0-10.0)
[2023-02-18] MEDS: ACETAMINOPHEN 1000 MG/100 ML BAG IVPB PRN (09:20)
[2023-02-18] MEDS: POLYETHYLENE GLYCOL (HEALTHYLAX) 3350 17 GM PACKET PO SCH (09:22)
[2023-02-18] MEDS: DOCUSATE SODIUM 100 MG CAPSULE (FP) PO SCH (09:22)
[2023-02-18] MEDS ORDERED: IRON SUCROSE INJECTION 200 MG in SODIUM CHLORIDE 90 ML IVPB ONE (09:30)
[2023-02-18] MEDS ORDERED: PROPOFOL 20 ML ONE (10:14)
[2023-02-18] MEDS ORDERED: ROCURONIUM BROMIDE 50 MG/5 ML SYRINGE ONE (10:14)
[2023-02-18 10:57] LABS: PLATELET COUNT 382 10^3/uL (134-434)
[2023-02-18] MEDS: ONDANSETRON *ODT* 4 MG TABLET SL PRN (15:00)
[2023-02-18] MEDS: SENNOSIDES 8.6MG TABLET (FP) PO SCH (21:41)
[2023-02-19] MEDS ORDERED: BUPIVACAINE HCL/PF 0.25% (2.5MG/ML) 10 ML VIAL ONE (07:26)
[2023-02-19] MEDS ORDERED: BUPIVACAINE HCL/PF 0.5% (5MG/ML) 10 ML VIAL ONE (07:27)
[2023-02-19] MEDS ORDERED: LIDOCAINE HCL/PF 2% SDV 5ML VIAL ONE (07:52)
[2023-02-19] MEDS ORDERED: ROCURONIUM BROMIDE 50 MG/5 ML SYRINGE ONE ×2 (07:52→09:30)
[2023-02-19] MEDS ORDERED: PROPOFOL 40 ML ONE (07:52)
[2023-02-19] MEDS ORDERED: MIDAZOLAM HCL 2 MG/2 ML SINGLE DOSE VIAL ONE (07:53)
[2023-02-19] MEDS ORDERED: ONDANSETRON 4 MG/2 ML VIAL ONE ×2 (08:15→10:54)
[2023-02-19] MEDS ORDERED: ceFAZolin SODIUM 1 GM VIAL ONE (08:15)
[2023-02-19] MEDS ORDERED: DEXAMETHASONE SOD PHOSPHATE 4 MG/1 ML VIAL ONE (08:15)
[2023-02-19] MEDS ORDERED: ceFAZolin SODIUM 1 GM VIAL IVPB ONE (08:16)
[2023-02-19] MEDS ORDERED: ACETAMINOPHEN INJECTION 100 ML IVPB ONE (09:13)
[2023-02-19] MEDS ORDERED: NEOSTIGMINE METHYLSULFATE 0.5 MG/1 ML - 10 ML MDV ONE (10:10)
[2023-02-19] MEDS ORDERED: GLYCOPYRROLATE 0.2 MG/1 ML VIAL ONE (10:10)
[2023-02-19] MEDS ORDERED: BENZOIN/ALOE VERA/STORAX/TOLU 58 ML BOTTLE ONE (11:34)
[2023-02-19] MEDS ORDERED: KETOROLAC TROMETHAMINE 30 MG/1 ML VIAL ONE (11:36)
[2023-02-19] MEDS ORDERED: ONDANSETRON 4 MG/2 ML VIAL IVPUSH PRN ×2 (11:49→12:32)
[2023-02-19] MEDS ORDERED: LACTATED RINGERS SOLUTION 1,000 ML IV SCH (12:00)
[2023-02-19] MEDS ORDERED: SODIUM CHLORIDE 1,000 ML IV SCH (12:15)
[2023-02-19] MEDS ORDERED: ONDANSETRON *ODT* 4 MG TABLET SL PRN (12:32)
[2023-02-19] MEDS ORDERED: oxyCODONE HCL 5 MG TABLET PO PRN (12:32)
[2023-02-19] MEDS: SODIUM CHLORIDE 1,000 ML IV SCH ×2 (14:14→23:11)
[2023-02-19] MEDS: POLYETHYLENE GLYCOL (HEALTHYLAX) 3350 17 GM PACKET PO SCH (14:42)
[2023-02-19] MEDS: DOCUSATE SODIUM 100 MG CAPSULE (FP) PO SCH (14:42)
[2023-02-19] MEDS: ACETAMINOPHEN 1000 MG/100 ML BAG IVPB SCH ×2 (17:19→23:12)
[2023-02-19] MEDS ORDERED: KETOROLAC TROMETHAMINE 30 MG/1 ML VIAL IVPUSH SCH (20:00)
[2023-02-19] MEDS: KETOROLAC TROMETHAMINE 30 MG/1 ML VIAL IVPUSH SCH (20:45)
[2023-02-19] MEDS: SENNOSIDES 8.6MG TABLET (FP) PO SCH (21:17)
[2023-02-20] MEDS: KETOROLAC TROMETHAMINE 30 MG/1 ML VIAL IVPUSH SCH ×2 (01:40→10:57)
[2023-02-20] MEDS: ACETAMINOPHEN 1000 MG/100 ML BAG IVPB SCH ×3 (05:18→17:50)
[2023-02-20 07:45] LABS: BASO % 0.2 % (0-2.0); EOS % 0.5 % (0-4.5); HEMATOCRIT 28.4 % (32.4-45.2); HEMOGLOBIN 8.6 GM/dL (10.7-15.3); LYMPH % 15.6 % (8-40); MCH 22.7 pg (25.7-33.7); MCHC 30.3 g/dl (32.0-36.0); MEAN CELL VOLUME 74.9 fl (80-96); MONO % 10.9 % (3.8-10.2); NEUT % 72.8 % (42.8-82.8); PLATELET COUNT 337 10^3/uL (134-434); RBC 3.79 M/mm3 (3.60-5.2); RDW 17.3 % (11.6-15.6); WHITE BLOOD COUNT 9.2 K/mm3 (4.0-10.0)
[2023-02-20 07:54] LABS: POTASSIUM 4.5 mmol/L (3.5-5.1)
[2023-02-20 07:56] LABS: CALCIUM 8.2 mg/dL (8.5-10.1)
[2023-02-20 07:57] LABS: ALBUMIN 2.8 g/dl (3.4-5.0); BLOOD UREA NITROGEN 9.4 mg/dL (7-18)
[2023-02-20 08:00] LABS: CREATININE 0.6 mg/dL (0.55-1.3)
[2023-02-20 08:02] LABS: BILIRUBIN,TOTAL 0.4 mg/dL (0.2-1); TOT PROT 5.4 g/dl (6.4-8.2)
[2023-02-20] MEDS: ENOXAPARIN NA (PORCINE) 40 MG/0.4 ML DISP.SYRIN SQ SCH (10:56)
[2023-02-20] MEDS: POLYETHYLENE GLYCOL (HEALTHYLAX) 3350 17 GM PACKET PO SCH (10:56)
[2023-02-20] MEDS: DOCUSATE SODIUM 100 MG CAPSULE (FP) PO SCH (10:56)
[2023-02-20] MEDS: SODIUM CHLORIDE 1,000 ML IV SCH ×2 (12:48→21:10)
[2023-02-20] MEDS ORDERED: FAMOTIDINE 10 MG TABLET PO ONE (20:15)
[2023-02-20] MEDS ORDERED: MAG HYDROX/AL HYDROX/SIMETH 30 ML UNIT-DOSE CUP PO PRN (20:15)
[2023-02-20] MEDS: SENNOSIDES 8.6MG TABLET (FP) PO SCH (21:04)
[2023-02-21] MEDS: ACETAMINOPHEN 1000 MG/100 ML BAG IVPB SCH ×4 (00:40→17:21)
[2023-02-21] MEDS: SODIUM CHLORIDE 1,000 ML IV SCH ×3 (06:53→15:02)
[2023-02-21 08:30] LABS: HEMATOCRIT 27.7 % (32.4-45.2); HEMOGLOBIN 8.4 GM/dL (10.7-15.3); MCH 22.8 pg (25.7-33.7); MCHC 30.2 g/dl (32.0-36.0); MEAN CELL VOLUME 75.5 fl (80-96); MEAN PLT VOLUME 7.2 fl (7.5-11.1); PLATELET COUNT 344 10^3/uL (134-434); RBC 3.67 M/mm3 (3.60-5.2); RDW 17.4 % (11.6-15.6); WHITE BLOOD COUNT 7.1 K/mm3 (4.0-10.0)
[2023-02-21 08:47] LABS: BLOOD UREA NITROGEN 4.9 mg/dL (7-18); CALCIUM 8.3 mg/dL (8.5-10.1)
[2023-02-21 08:50] LABS: CREATININE 0.4 mg/dL (0.55-1.3)
[2023-02-21] MEDS: DOCUSATE SODIUM 100 MG CAPSULE (FP) PO SCH (10:59)
[2023-02-21] MEDS: POLYETHYLENE GLYCOL (HEALTHYLAX) 3350 17 GM PACKET PO SCH ×2 (10:59→11:03)
[2023-02-21] MEDS: ENOXAPARIN NA (PORCINE) 40 MG/0.4 ML DISP.SYRIN SQ SCH (11:00)
[2023-02-21] MEDS: ACETAMINOPHEN 325 MG TABLET (FP) PO SCH (22:46)
[2023-02-21] MEDS: SENNOSIDES 8.6MG TABLET (FP) PO SCH (22:46)
[2023-02-22] MEDS: ACETAMINOPHEN 325 MG TABLET (FP) PO SCH ×4 (06:40→22:58)
[2023-02-22 09:29] LABS: BASO % 0.6 % (0-2.0); EOS % 2.2 % (0-4.5); HEMATOCRIT 27.8 % (32.4-45.2); HEMOGLOBIN 8.6 GM/dL (10.7-15.3); LYMPH % 16.1 % (8-40); MCH 22.9 pg (25.7-33.7); MCHC 30.9 g/dl (32.0-36.0); MONO % 10.6 % (3.8-10.2); NEUT % 70.5 % (42.8-82.8); PLATELET COUNT 316 10^3/uL (134-434); RBC 3.76 M/mm3 (3.60-5.2); RDW 17.2 % (11.6-15.6); WHITE BLOOD COUNT 5.7 K/mm3 (4.0-10.0)
[2023-02-22 09:42] LABS: POTASSIUM 4.4 mmol/L (3.5-5.1)
[2023-02-22 09:49] LABS: BLOOD UREA NITROGEN 5.2 mg/dL (7-18)
[2023-02-22 09:53] LABS: CALCIUM 8.5 mg/dL (8.5-10.1)
[2023-02-22 09:54] LABS: MAGNESIUM 2.1 mg/dL (1.8-2.4)
[2023-02-22 09:56] LABS: CREATININE 0.5 mg/dL (0.55-1.3); PHOSPHOROUS 2.4 mg/dL (2.5-4.9)
[2023-02-22] MEDS: FERROUS SO4 325 MG TABLET (FP) PO SCH (10:13)
[2023-02-22] MEDS: DOCUSATE SODIUM 100 MG CAPSULE (FP) PO SCH (10:13)
[2023-02-22] MEDS: POLYETHYLENE GLYCOL (HEALTHYLAX) 3350 17 GM PACKET PO SCH (10:14)
[2023-02-22 15:43] LABS: HEMATOCRIT 31.1 % (32.4-45.2); HEMOGLOBIN 9.7 GM/dL (10.7-15.3); MCH 23.2 pg (25.7-33.7); MCHC 31.2 g/dl (32.0-36.0); MEAN CELL VOLUME 74.2 fl (80-96); PLATELET COUNT 390 10^3/uL (134-434); RBC 4.19 M/mm3 (3.60-5.2); RDW 18.1 % (11.6-15.6); WHITE BLOOD COUNT 7.5 K/mm3 (4.0-10.0)
[2023-02-22] MEDS: SENNOSIDES 8.6MG TABLET (FP) PO SCH (22:58)
[2023-02-22] MEDS: PHENYLEPHRINE HCL/COCOA BUTTER 1 EACH SUPP.RECT RC SCH (22:59)
[2023-02-23] MEDS: ACETAMINOPHEN 325 MG TABLET (FP) PO SCH ×2 (05:59→09:57)
[2023-02-23 09:25] VITALS: BP 144/93; PULSE 94; RESP 18; TEMP 98.5
[2023-02-23 09:52] LABS: HEMATOCRIT 31.9 % (32.4-45.2); MCH 23.2 pg (25.7-33.7); MCHC 31.3 g/dl (32.0-36.0); PLATELET COUNT 395 10^3/uL (134-434); RBC 4.32 M/mm3 (3.60-5.2); RDW 18.7 % (11.6-15.6); WHITE BLOOD COUNT 6.5 K/mm3 (4.0-10.0)
[2023-02-23] MEDS: DOCUSATE SODIUM 100 MG CAPSULE (FP) PO SCH (09:57)
[2023-02-23] MEDS: FERROUS SO4 325 MG TABLET (FP) PO SCH (09:57)
[2023-02-23] MEDS: POLYETHYLENE GLYCOL (HEALTHYLAX) 3350 17 GM PACKET PO SCH (09:59)
[2023-02-23] MEDS: PHENYLEPHRINE HCL/COCOA BUTTER 1 EACH SUPP.RECT RC SCH (09:59)
== END 2023-02-23 13:06 | disposition home or self-care (01) | DRG 336 ==
LOC: JER 19:35 → JERBED 21:20 → J7W 02-14 05:03 → OBSVTOIN 02-16 19:33
PROVIDERS: ADMIT Internal Medicine; ATTEND Internal Medicine
PROC: 0DNW0ZZ Release Peritoneum, Open Approach (ICD-10-PCS; 2023-02-19)
PROC: 0HQ7XZZ Repair Abdomen Skin, External Approach (ICD-10-PCS; 2023-02-19)
PROC: 0WQF0ZZ Repair Abdominal Wall, Open Approach (ICD-10-PCS; principal; 2023-02-19 08:00)
DX: K43.2 Incisional hernia without obstruction or gangrene (principal); K62.5 Hemorrhage of anus and rectum; K66.0 Peritoneal adhesions (postprocedural) (postinfection); D50.9 Iron deficiency anemia, unspecified; E66.9 Obesity, unspecified; Z68.35 Body mass index [BMI] 35.0-35.9, adult; K64.9 Unspecified hemorrhoids
CPT/HCPCS: 36415; 80048; 80053; 81003; 82272; 82728; 83540; 83550; 83605; 83735; 84100; 85025; 85027; 85610; 85730; 86850; 86900; 86901; 87077; 87086; 88304-TC; 93005; 93010; 94010; 94760; 97116-GP; 97161-GP; 99285-25; G0378; J1756; Q0162

== ENCOUNTER 2023-06-30 20:24 | Emergency (ER) | payer BC ==
[2023-06-30 20:34] VITALS: BP 115/67; PULSE 91; RESP 18; TEMP 97.9; BMI 33.3
[2023-06-30 22:09] LABS: HEMATOCRIT 24.7 % (32.4-45.2); HEMOGLOBIN 7.4 GM/dL (10.7-15.3); MCHC 30.1 g/dl (32.0-36.0); MEAN CELL VOLUME 64.3 fl (80-96); MEAN PLT VOLUME 5.9 fl (7.5-11.1); PLATELET COUNT 620 10^3/uL (134-434); RBC 3.84 M/mm3 (3.60-5.2); RDW 18.5 % (11.6-15.6); WHITE BLOOD COUNT 7.9 K/mm3 (4.0-10.0)
[2023-06-30 22:14] LABS: MCH 19.4 pg (25.7-33.7)
[2023-06-30 22:15] LABS: ADD RBC MORPHOLOGY YES
[2023-06-30] MEDS ORDERED: ACETAMINOPHEN 1000 MG/100 ML BAG IVPB ONE (22:59)
[2023-06-30] MEDS ORDERED: ACETAMINOPHEN INJECTION 100 ML IVPB ONE (23:06)
[2023-06-30] MEDS ORDERED: ACETAMINOPHEN 500 MG TABLET (FP) PO ONE (23:14)
[2023-06-30 23:17] LABS: ANISOCYTOSIS 2+; MACROCYTOSIS 0; OVALOCYTE 1+; PLATELET ESTIMATE INCREASED
[2023-06-30] MEDS ORDERED: ACETAMINOPHEN 325 MG TABLET (FP) ONE (23:26)
== END 2023-06-30 23:59 | disposition left against medical advice (07) ==
LOC: JER 20:24
DX: K64.9 Unspecified hemorrhoids (principal); R15.9 Full incontinence of feces; R11.0 Nausea; R10.30 Lower abdominal pain, unspecified; K62.9 Disease of anus and rectum, unspecified
CPT/HCPCS: 36415; 82272; 85025; 99283-25

== ENCOUNTER 2023-07-15 14:36 | Observation (INO) | payer BC ==
[2023-07-15 15:40] VITALS: BMI 34.1
[2023-07-15] MEDS ORDERED: MECLIZINE HCL 25 MG TABLET (FP) PO ONE (19:03)
[2023-07-15] MEDS ORDERED: SODIUM CHLORIDE 0.9% 500 ML INFUS.BAG IV ONE (19:04)
[2023-07-15] MEDS ORDERED: ACETAMINOPHEN 1000 MG/100 ML BAG IVPB ONE (19:04)
[2023-07-15] MEDS ORDERED: METOCLOPRAMIDE HCL INJECTION 10 MG/2 ML VIAL IVPB ONE (19:04)
[2023-07-15] MEDS ORDERED: MECLIZINE HCL 25 MG TABLET (FP) ONE (19:34)
[2023-07-15] MEDS ORDERED: METOCLOPRAMIDE HCL INJECTION 10 MG/2 ML VIAL ONE (19:34)
[2023-07-15] MEDS ORDERED: ACETAMINOPHEN INJECTION 100 ML IVPB ONE (19:34)
[2023-07-15 19:46] LABS: POTASSIUM 4.1 mmol/L (3.5-5.1)
[2023-07-15 19:48] LABS: CALCIUM 8.7 mg/dL (8.5-10.1)
[2023-07-15 19:49] LABS: ALBUMIN 3.8 g/dl (3.4-5.0); BLOOD UREA NITROGEN 15.2 mg/dL (7-18)
[2023-07-15 19:51] LABS: BASO % 1.6 % (0-2.0); HEMATOCRIT 25.9 % (32.4-45.2); HEMOGLOBIN 7.3 GM/dL (10.7-15.3); LYMPH % 28.5 % (8-40); MCHC 28.3 g/dl (32.0-36.0); MEAN CELL VOLUME 64.3 fl (80-96); MEAN PLT VOLUME 6.8 fl (7.5-11.1); MONO % 8.8 % (3.8-10.2); NEUT % 59.1 % (42.8-82.8); PLATELET COUNT 524 10^3/uL (134-434); RBC 4.03 M/mm3 (3.60-5.2); RDW 18.8 % (11.6-15.6); RETICULOCYTES 1.51 % (0.5-1.5); WHITE BLOOD COUNT 6.7 K/mm3 (4.0-10.0)
[2023-07-15 19:52] LABS: CREATININE 0.6 mg/dL (0.55-1.3)
[2023-07-15 19:53] LABS: BILIRUBIN,TOTAL 0.2 mg/dL (0.2-1)
[2023-07-15 19:54] LABS: TOT PROT 7.1 g/dl (6.4-8.2)
[2023-07-15 19:56] LABS: MCH 18.2 pg (25.7-33.7)
[2023-07-15 20:45] LABS: ANISOCYTOSIS 1+; MACROCYTOSIS 0; OVALOCYTE 1+; PLATELET ESTIMATE NORMAL; TARGET CELLS 1+
[2023-07-15] MEDS ORDERED: KETOROLAC TROMETHAMINE 15 MG/ML VIAL ONE (22:01)
[2023-07-15] MEDS ORDERED: KETOROLAC TROMETHAMINE 15 MG/ML VIAL IVPUSH ONE (22:04)
[2023-07-15 22:05] LABS: PH,URINE 5.5 (5.0-8.0); URINE APPEARANCE CLEAR; URINE BILIRUBIN NEGATIVE (NEGATIVE); URINE COLOR YELLOW; URINE GLUCOSE (UA) NEGATIVE (NEGATIVE); URINE KETONE NEGATIVE (NEGATIVE); URINE LEUK ESTERASE NEGATIVE (NEGATIVE); URINE NITRITE NEGATIVE (NEGATIVE); URINE PROTEIN NEGATIVE (NEGATIVE); URINE UROBILINOGEN 0.2 mg/dL (0.2-1.0)
[2023-07-16] MEDS ORDERED: IRON SUCROSE INJECTION 200 MG in SODIUM CHLORIDE 90 ML IVPB ONE (06:45)
[2023-07-16 07:23] LABS: POTASSIUM 3.9 mmol/L (3.5-5.1)
[2023-07-16 07:29] LABS: CALCIUM 8.9 mg/dL (8.5-10.1)
[2023-07-16 07:30] LABS: MAGNESIUM 2.4 mg/dL (1.8-2.4)
[2023-07-16 07:32] LABS: TOT PROT 6.2 g/dl (6.4-8.2)
[2023-07-16 07:33] LABS: ALBUMIN 3.2 g/dl (3.4-5.0); BILIRUBIN,TOTAL 0.2 mg/dL (0.2-1); BLOOD UREA NITROGEN 11.7 mg/dL (7-18)
[2023-07-16 07:36] LABS: CREATININE 0.6 mg/dL (0.55-1.3); PHOSPHOROUS 3.7 mg/dL (2.5-4.9)
[2023-07-16 08:13] LABS: BASO % 1.6 % (0-2.0); EOS % 3.6 % (0-4.5); HEMATOCRIT 24.2 % (32.4-45.2); MEAN CELL VOLUME 63.2 fl (80-96); MEAN PLT VOLUME 6.3 fl (7.5-11.1); MONO % 10.4 % (3.8-10.2); NEUT % 48.4 % (42.8-82.8); PLATELET COUNT 450 10^3/uL (134-434); RBC 3.83 M/mm3 (3.60-5.2); RDW 18.9 % (11.6-15.6); WHITE BLOOD COUNT 4.9 K/mm3 (4.0-10.0)
[2023-07-16 08:16] LABS: MCH 18.3 pg (25.7-33.7)
[2023-07-16] MEDS ORDERED: ACETAMINOPHEN 325 MG TABLET (FP) ONE ×2 (09:59→15:43)
[2023-07-16] MEDS: LACTATED RINGERS SOLUTION 1,000 ML/1,000 ML INFUS.BAG IV SCH (10:12)
[2023-07-16] MEDS: ACETAMINOPHEN 325 MG TABLET (FP) PO PRN ×2 (10:13→15:43)
[2023-07-16] MEDS ORDERED: KETOROLAC TROMETHAMINE 10 MG TABLET PO ONE ×2 (16:37→16:45)
[2023-07-16] MEDS ORDERED: KETOROLAC TROMETHAMINE 15 MG/ML VIAL IVPUSH ONE ×2 (20:51→23:44)
[2023-07-17 08:15] LABS: HEMATOCRIT 24.2 % (32.4-45.2); MEAN CELL VOLUME 62.7 fl (80-96); MEAN PLT VOLUME 6.6 fl (7.5-11.1); PLATELET COUNT 467 10^3/uL (134-434); RBC 3.86 M/mm3 (3.60-5.2); RDW 19.1 % (11.6-15.6)
[2023-07-17 08:20] LABS: MCH 18.2 pg (25.7-33.7)
[2023-07-17] MEDS: ACETAMINOPHEN 325 MG TABLET (FP) PO PRN (09:16)
[2023-07-17] MEDS: PANTOPRAZOLE 40 MG TABLET PO SCH (09:17)
[2023-07-17] MEDS: POLYETHYLENE GLYCOL (HEALTHYLAX) 3350 17 GM PACKET PO SCH (09:18)
[2023-07-17] MEDS ORDERED: IRON SUCROSE INJECTION 200 MG in SODIUM CHLORIDE 90 ML IVPB ONE (10:00)
[2023-07-17] MEDS: LACTATED RINGERS SOLUTION 1,000 ML/1,000 ML INFUS.BAG IV SCH (15:40)
[2023-07-17] MEDS ORDERED: PANTOPRAZOLE 40 MG TABLET PO SCH (18:00)
[2023-07-17] MEDS ORDERED: KETOROLAC TROMETHAMINE 15 MG/ML VIAL IVPUSH ONE (21:00)
[2023-07-18] MEDS: ACETAMINOPHEN 325 MG TABLET (FP) PO PRN (08:26)
[2023-07-18 08:27] LABS: BASO % 1.4 % (0-2.0); EOS % 3.3 % (0-4.5); HEMATOCRIT 27.1 % (32.4-45.2); HEMOGLOBIN 8.3 GM/dL (10.7-15.3); LYMPH % 34.2 % (8-40); MCHC 30.4 g/dl (32.0-36.0); MEAN CELL VOLUME 65.9 fl (80-96); MEAN PLT VOLUME 6.7 fl (7.5-11.1); MONO % 10.3 % (3.8-10.2); NEUT % 50.8 % (42.8-82.8); PLATELET COUNT 449 10^3/uL (134-434); RBC 4.12 M/mm3 (3.60-5.2); RDW 20.9 % (11.6-15.6); WHITE BLOOD COUNT 6.4 K/mm3 (4.0-10.0)
[2023-07-18 08:48] LABS: ALBUMIN 3.2 g/dl (3.4-5.0)
[2023-07-18 08:49] LABS: BLOOD UREA NITROGEN 10.7 mg/dL (7-18)
[2023-07-18 08:51] LABS: BILIRUBIN,TOTAL 1.1 mg/dL (0.2-1); CALCIUM 8.6 mg/dL (8.5-10.1)
[2023-07-18 08:52] LABS: CREATININE 0.5 mg/dL (0.55-1.3); MAGNESIUM 2.1 mg/dL (1.8-2.4); PHOSPHOROUS 3.5 mg/dL (2.5-4.9)
[2023-07-18] MEDS: PANTOPRAZOLE 40 MG TABLET PO SCH (09:23)
[2023-07-18] MEDS: POLYETHYLENE GLYCOL (HEALTHYLAX) 3350 17 GM PACKET PO SCH (09:30)
[2023-07-18] MEDS ORDERED: IRON SUCROSE INJECTION 200 MG in SODIUM CHLORIDE 90 ML IVPB ONE (10:00)
[2023-07-18] MEDS ORDERED: MECLIZINE HCL 25 MG TABLET (FP) PO PRN (10:00)
[2023-07-18] MEDS: predniSONE 20 MG TABLET (UD) PO SCH (12:07)
[2023-07-18] MEDS ORDERED: predniSONE 10 MG TABLET (UD) PO SCH (18:00)
[2023-07-19] MEDS: PANTOPRAZOLE 40 MG TABLET PO SCH (09:42)
[2023-07-19] MEDS: predniSONE 20 MG TABLET (UD) PO SCH (09:42)
[2023-07-19] MEDS: POLYETHYLENE GLYCOL (HEALTHYLAX) 3350 17 GM PACKET PO SCH (09:45)
[2023-07-19 12:39] LABS: CALCIUM 9.1 mg/dL (8.5-10.1)
[2023-07-19 12:40] LABS: ALBUMIN 3.5 g/dl (3.4-5.0)
[2023-07-19 12:42] LABS: BILIRUBIN,DIRECT 0.1 mg/dL (0.0-0.2)
[2023-07-19 12:43] LABS: CREATININE 0.6 mg/dL (0.55-1.3)
[2023-07-19 12:44] LABS: BILIRUBIN,TOTAL 0.2 mg/dL (0.2-1); TOT PROT 6.7 g/dl (6.4-8.2)
[2023-07-19 12:56] LABS: POTASSIUM 3.9 mmol/L (3.5-5.1)
[2023-07-19] MEDS ORDERED: ACETAMINOPHEN/CAFFEINE/BUTALBITAL 1 TAB PO ONE (13:43)
[2023-07-19 15:33] VITALS: BP 132/82; PULSE 86; RESP 19; TEMP 97.6
== END 2023-07-19 18:00 | disposition home or self-care (01) ==
LOC: JER 14:36 → INTOOBSV 07-16 00:06 → JERBED 07-16 00:06 → J4W 07-16 18:20
PROVIDERS: ADMIT Internal Medicine; ATTEND Internal Medicine
PROC: 3E033GC Introduction of Other Therapeutic Substance into Peripheral Vein, Percutaneous Approach (ICD-10-PCS; principal; 2023-07-16)
PROC: 3E033NZ Introduction of Analgesics, Hypnotics, Sedatives into Peripheral Vein, Percutaneous Approach (ICD-10-PCS; 2023-07-16)
PROC: 3E0333Z Introduction of Anti-inflammatory into Peripheral Vein, Percutaneous Approach (ICD-10-PCS; 2023-07-16)
PROC: 3E0337Z Introduction of Electrolytic and Water Balance Substance into Peripheral Vein, Percutaneous Approach (ICD-10-PCS; 2023-07-16)
PROC: 30233N1 Transfusion of Nonautologous Red Blood Cells into Peripheral Vein, Percutaneous Approach (ICD-10-PCS; 2023-07-16)
DX: D50.9 Iron deficiency anemia, unspecified (principal); R26.81 Unsteadiness on feet; K57.92 Diverticulitis of intestine, part unspecified, without perforation or abscess without bleeding; W18.39XA Other fall on same level, initial encounter; Y93.89 Activity, other specified; Y92.89 Other specified places as the place of occurrence of the external cause; M26.69 Other specified disorders of temporomandibular joint; J45.909 Unspecified asthma, uncomplicated; K22.70 Barrett's esophagus without dysplasia; H92.09 Otalgia, unspecified ear; R10.9 Unspecified abdominal pain; R51.9 Headache, unspecified; E66.3 Overweight; K59.00 Constipation, unspecified; H53.8 Other visual disturbances
CPT/HCPCS: 36415; 36430; 70450-TC; 70496-TC; 70498-TC; 70551-TC; 70552-TC; 72125-TC; 74177-TC; 80053; 80061; 81003; 82248; 82272; 82550; 82553; 82607; 82728; 82746; 83540; 83550; 83735; 84100; 84443; 84466; 84484; 85025; 85027; 85045; 85651; 86140; 86850; 86900; 86901; 86922; 87086; 87635; 93005; 93010; 93306-TC; 99285-25; G0378; J1756; P9058

== ENCOUNTER 2024-01-06 18:44 | Emergency (ER) | payer BC ==
[2024-01-06 19:02] VITALS: RESP 18; TEMP 98.8; BMI 34.1
[2024-01-06 19:57] LABS: PH,URINE 5.5 (5.0-8.0); URINE APPEARANCE CLEAR; URINE BILIRUBIN NEGATIVE (NEGATIVE); URINE COLOR YELLOW; URINE GLUCOSE (UA) NEGATIVE (NEGATIVE); URINE KETONE NEGATIVE (NEGATIVE); URINE LEUK ESTERASE NEGATIVE (NEGATIVE); URINE NITRITE NEGATIVE (NEGATIVE); URINE PROTEIN NEGATIVE (NEGATIVE); URINE UROBILINOGEN 0.2 mg/dL (0.2-1.0)
[2024-01-06 20:11] LABS: BASO % 1.7 % (0-2.0); EOS % 1.5 % (0-4.5); HEMATOCRIT 28.9 % (32.4-45.2); HEMOGLOBIN 8.6 GM/dL (10.7-15.3); LYMPH % 30.1 % (8-40); MCHC 29.7 g/dl (32.0-36.0); MEAN CELL VOLUME 66.6 fl (80-96); MEAN PLT VOLUME 6.6 fl (7.5-11.1); MONO % 7.8 % (3.8-10.2); NEUT % 58.9 % (42.8-82.8); PLATELET COUNT 523 10^3/uL (134-434); RBC 4.34 M/mm3 (3.60-5.2); RDW 18.1 % (11.6-15.6); WHITE BLOOD COUNT 6.9 K/mm3 (4.0-10.0)
[2024-01-06] MEDS ORDERED: FAMOTIDINE 20 MG/50 ML IVPB 20 MG/50 ML MG IVPB ONE (20:11)
[2024-01-06] MEDS ORDERED: ONDANSETRON 4 MG/2 ML VIAL ONE (20:11)
[2024-01-06 20:12] LABS: MCH 19.8 pg (25.7-33.7)
[2024-01-06] MEDS: FAMOTIDINE 20 MG/50 ML IVPB 20 MG/50 ML MG IVPB ONE (20:19)
[2024-01-06] MEDS: ONDANSETRON 4 MG/2 ML VIAL IVPUSH ONE (20:19)
[2024-01-06] MEDS: SODIUM CHLORIDE 0.9% 500 ML INFUS.BAG IV ONE (20:19)
[2024-01-06 20:29] LABS: POTASSIUM 4.2 mmol/L (3.5-5.1)
[2024-01-06 20:31] LABS: CALCIUM 9.3 mg/dL (8.5-10.1)
[2024-01-06] MEDS ORDERED: ACETAMINOPHEN INJECTION 100 ML IVPB ONE (20:31)
[2024-01-06 20:32] LABS: ALBUMIN 3.7 g/dl (3.4-5.0); BLOOD UREA NITROGEN 12.1 mg/dL (7-18); MAGNESIUM 2.2 mg/dL (1.8-2.4)
[2024-01-06] MEDS: ACETAMINOPHEN 1000 MG/100 ML BAG IVPB ONE (20:33)
[2024-01-06 20:35] LABS: CREATININE 0.6 mg/dL (0.55-1.3); PHOSPHOROUS 2.8 mg/dL (2.5-4.9)
[2024-01-06 20:36] LABS: BILIRUBIN,TOTAL 0.4 mg/dL (0.2-1)
[2024-01-06 20:37] LABS: TOT PROT 7.1 g/dl (6.4-8.2)
[2024-01-06 20:45] LABS: ANISOCYTOSIS 3+; MACROCYTOSIS 0
[2024-01-06] MEDS ORDERED: morphine SULFATE 4 MG/ML VIAL ONE (22:25)
[2024-01-06] MEDS: morphine CARPU-JECT 4 MG/1 ML DISP.SYRIN IVPUSH ONE (22:34)
[2024-01-06 22:35] VITALS: BP 123/77; PULSE 76
== END 2024-01-07 01:25 | disposition home or self-care (01) ==
LOC: JER 18:44
PROC: 3E033GC Introduction of Other Therapeutic Substance into Peripheral Vein, Percutaneous Approach (ICD-10-PCS; principal; 2024-01-06)
PROC: 3E033NZ Introduction of Analgesics, Hypnotics, Sedatives into Peripheral Vein, Percutaneous Approach (ICD-10-PCS; 2024-01-06)
PROC: 3E033NZ Introduction of Analgesics, Hypnotics, Sedatives into Peripheral Vein, Percutaneous Approach (ICD-10-PCS; 2024-01-06)
PROC: 3E033GC Introduction of Other Therapeutic Substance into Peripheral Vein, Percutaneous Approach (ICD-10-PCS; 2024-01-06)
DX: R10.32 Left lower quadrant pain (principal); K52.9 Noninfective gastroenteritis and colitis, unspecified
CPT/HCPCS: 36415; 71046-TC-FY; 74177-TC; 80053; 81003; 83605; 83690; 83735; 84100; 85025; 87086; 93005; 93010; 99285-25; J0131; Q9967

== ENCOUNTER 2024-01-26 16:39 | Emergency (ER) | payer OTHER, BC ==
[2024-01-26 16:48] VITALS: BP 128/74; PULSE 90; RESP 18; TEMP 98.3; BMI 34.6
[2024-01-26] MEDS ORDERED: ACETAMINOPHEN 500 MG TABLET (FP) ONE (17:59)
[2024-01-26] MEDS ORDERED: KETOROLAC TROMETHAMINE 15 MG/ML VIAL ONE (17:59)
[2024-01-26] MEDS ORDERED: LIDOCAINE 4% PATCH TP ONE (17:59)
[2024-01-26] MEDS ORDERED: PANTOPRAZOLE 40 MG TABLET PO ONE (18:00)
[2024-01-26] MEDS: LIDOCAINE 4% PATCH TP ONE (18:07)
[2024-01-26] MEDS: PANTOPRAZOLE 40 MG TABLET PO ONE (18:08)
[2024-01-26] MEDS: KETOROLAC TROMETHAMINE 15 MG/ML VIAL IM ONE (18:08)
[2024-01-26] MEDS: ACETAMINOPHEN 500 MG TABLET (FP) PO ONE (18:08)
[2024-01-26 18:44] LABS: URINE APPEARANCE CLEAR; URINE BILIRUBIN NEGATIVE (NEGATIVE); URINE COLOR YELLOW; URINE GLUCOSE (UA) NEGATIVE (NEGATIVE); URINE KETONE NEGATIVE (NEGATIVE); URINE LEUK ESTERASE NEGATIVE (NEGATIVE); URINE NITRITE NEGATIVE (NEGATIVE); URINE PROTEIN NEGATIVE (NEGATIVE); URINE UROBILINOGEN 0.2 mg/dL (0.2-1.0)
[2024-01-26] MEDS ORDERED: oxyCODONE HCL 5 MG TABLET ONE (19:40)
[2024-01-26] MEDS: oxyCODONE HCL 5 MG TABLET PO ONE (19:41)
[2024-01-27] MEDS ORDERED: LIDOCAINE PATCH REMOVAL MC SCH (06:00)
== END 2024-01-26 19:56 | disposition home or self-care (01) ==
LOC: JER 16:39 → JERFT 16:39
PROC: 3E023GC Introduction of Other Therapeutic Substance into Muscle, Percutaneous Approach (ICD-10-PCS; principal; 2024-01-26)
DX: M54.50 Low back pain, unspecified (principal); G89.29 Other chronic pain; X50.1XXA Overexertion from prolonged static or awkward postures, initial encounter; Y99.0 Civilian activity done for income or pay
CPT/HCPCS: 81003; 87086; 99284-25

== ENCOUNTER 2024-07-02 22:36 | Emergency (ER) | payer BC ==
[2024-07-02 23:01] VITALS: PULSE 102; TEMP 97.8; BMI 30.4
[2024-07-02] MEDS ORDERED: ACETAMINOPHEN INJECTION 100 ML ONE (23:18)
[2024-07-02] MEDS ORDERED: FAMOTIDINE 20 MG/50 ML IVPB 20 MG/50 ML MG IVPB ONE (23:18)
[2024-07-02] MEDS ORDERED: ONDANSETRON 4 MG/2 ML VIAL ONE (23:19)
[2024-07-02] MEDS: ACETAMINOPHEN 1000 MG/100 ML BAG IVPB ONE (23:57)
[2024-07-02] MEDS: ONDANSETRON 4 MG/2 ML VIAL IVPUSH ONE (23:57)
[2024-07-02] MEDS ORDERED: MAG HYDROX/AL HYDROX/SIMETH 30 ML UNIT-DOSE CUP ONE (23:58)
[2024-07-03] MEDS: MAG HYDROX/AL HYDROX/SIMETH 30 ML UNIT-DOSE CUP PO ONE (00:05)
[2024-07-03] MEDS: FAMOTIDINE 20 MG/50 ML IVPB 20 MG/50 ML MG IVPB ONE (00:05)
[2024-07-03 00:13] LABS: BASO % 0.8 % (0-2.0); EOS % 0.7 % (0-4.5); HEMATOCRIT 42.6 % (32.4-45.2); HEMOGLOBIN 13.8 GM/dL (10.7-15.3); LYMPH % 14.6 % (8-40); MCH 26.6 pg (25.7-33.7); MCHC 32.4 g/dl (32.0-36.0); MEAN CELL VOLUME 82.1 fl (80-96); MEAN PLT VOLUME 7.3 fl (7.5-11.1); MONO % 5.8 % (3.8-10.2); NEUT % 78.1 % (42.8-82.8); PLATELET COUNT 328 10^3/uL (134-434); RBC 5.19 M/mm3 (3.60-5.2); RDW 26.3 % (11.6-15.6); WHITE BLOOD COUNT 8.5 K/mm3 (4.0-10.0)
[2024-07-03 00:30] LABS: POTASSIUM 3.9 mmol/L (3.5-5.1)
[2024-07-03 00:32] LABS: ALBUMIN 4.2 g/dl (3.4-5.0); BLOOD UREA NITROGEN 18.7 mg/dL (7-18); CALCIUM 9.7 mg/dL (8.5-10.1)
[2024-07-03 00:36] LABS: CREATININE 0.8 mg/dL (0.55-1.3)
[2024-07-03 00:37] LABS: BILIRUBIN,TOTAL 0.2 mg/dL (0.2-1); TOT PROT 7.7 g/dl (6.4-8.2)
[2024-07-03 01:25] VITALS: BP 101/82; RESP 18
[2024-07-03 03:00] LABS: ANISOCYTOSIS 3+; MACROCYTOSIS 2+; OVALOCYTE 1+; TEAR DROP CELLS 1+
== END 2024-07-03 01:31 | disposition home or self-care (01) ==
LOC: JER 22:36
PROC: 3E033GC Introduction of Other Therapeutic Substance into Peripheral Vein, Percutaneous Approach (ICD-10-PCS; principal; 2024-07-02)
PROC: 3E033GC Introduction of Other Therapeutic Substance into Peripheral Vein, Percutaneous Approach (ICD-10-PCS; 2024-07-02)
PROC: 3E033NZ Introduction of Analgesics, Hypnotics, Sedatives into Peripheral Vein, Percutaneous Approach (ICD-10-PCS; 2024-07-02)
DX: R11.2 Nausea with vomiting, unspecified (principal); R07.89 Other chest pain
CPT/HCPCS: 36415; 71045-TC-FY; 80053; 84484; 85025; 93005; 93010; 99285-25; J0131

== ENCOUNTER 2025-04-11 22:46 | Emergency (ER) | payer BC ==
[2025-04-11 22:53] VITALS: BMI 34.9
[2025-04-12] MEDS ORDERED: ACETAMINOPHEN INJECTION 100 ML ONE (00:07)
[2025-04-12] MEDS ORDERED: MAG HYDROX/AL HYDROX/SIMETH 30 ML UNIT-DOSE CUP ONE (00:07)
[2025-04-12] MEDS: ACETAMINOPHEN 1000 MG/100 ML BAG IVPB ONE (00:25)
[2025-04-12] MEDS: MAG HYDROX/AL HYDROX/SIMETH 30 ML UNIT-DOSE CUP PO ONE (00:25)
[2025-04-12 00:50] LABS: MCHC 26.1 g/dl (32.2-35.5); MEAN CELL VOLUME 69.3 fl (79.4-94.8); MEAN PLT VOLUME 9.3 fl (9.4-12.3); RDW 20.4 % (12.3-16.6)
[2025-04-12 01:23] LABS: CO2 28.0 mmol/L (21-32); GLUCOSE,RANDOM 117.0 mg/dL (74-106)
[2025-04-12 01:25] LABS: CREATININE 0.9 mg/dL (0.55-1.3); SGOT/AST 17.0 U/L (15-37); SGPT/ALT 20.0 U/L (13-61)
[2025-04-12 01:26] LABS: TOT PROT 6.8 g/dl (6.4-8.2)
[2025-04-12 01:28] VITALS: TEMP 97.7
[2025-04-12 01:39] LABS: INR 1.15 (0.83-1.09); PROTHROMBIN TIME (PATIENT) 12.5 SEC (9.7-13.0)
[2025-04-12 01:40] LABS: ACTIVATED PTT 23.2 SECONDS (25.2-36.5)
[2025-04-12 02:02] LABS: ALK PHOS 109.0 U/L (45-117)
[2025-04-12 03:27] LABS: URINE APPEARANCE CLEAR; URINE BILIRUBIN NEGATIVE (NEGATIVE); URINE COLOR YELLOW; URINE GLUCOSE (UA) NEGATIVE (NEGATIVE); URINE KETONE NEGATIVE (NEGATIVE); URINE LEUK ESTERASE NEGATIVE (NEGATIVE); URINE NITRITE NEGATIVE (NEGATIVE); URINE PROTEIN NEGATIVE (NEGATIVE); URINE UROBILINOGEN 0.2 mg/dL (0.2-1.0)
[2025-04-12 03:59] LABS: HIV INTERPRETATION NEGATIVE (NEGATIVE)
[2025-04-12 04:51] VITALS: BP 114/67; PULSE 77; RESP 18
[2025-04-12 19:57] LABS: HCV DIAGNOSTIC IN-HOUSE W/RFLX NON-REACTIVE (NONREACTIVE)
== END 2025-04-12 04:52 | disposition home or self-care (01) ==
LOC: JER 22:46
PROC: 3E033GC Introduction of Other Therapeutic Substance into Peripheral Vein, Percutaneous Approach (ICD-10-PCS; principal; 2025-04-12)
DX: R10.12 Left upper quadrant pain (principal)
CPT/HCPCS: 36415; 71046-TC-FY; 74177-TC; 80053; 81003; 83690; 83735; 85025; 85610; 85730; 86803; 86850; 86870; 86880; 86900; 86901; 86902; 87086; 87389; 93005; 93010; 99285-25; Q9967